=== PATIENT | male | born 1935 | race Caucasian/White ===

== ENCOUNTER 2022-04-03 15:26 | Outpatient (REF) | payer MEDICARE, OTHER, SELFPAY ==
[2022-04-03 18:36] LABS: Appearance Urine CLEAR; Color Urine YELLOW; Glucose Urine UA >=1000 MG/DL (NEG); Leukocyte Esterase Urine NEG (NEG); Nitrite Urine NEG (NEG); PH 6.5 (5.0-8.0); Urine Blood NEG (NEG); Urine Ketones NEG (NEG); Urine Protein NEG (NEG-TRACE)
[2022-04-03 18:41] LABS: RBC Urine 0 /HPF (0); WBC Urine 0 /HPF (0-4)
== END 2022-04-03 15:27 | disposition home or self-care (01) ==
LOC: HO.MANLDS 15:26
PROVIDERS: PCP Internal Medicine; Visit Provider Internal Medicine
DX: R30.9 Painful micturition, unspecified (principal); K92.1 Melena
CPT/HCPCS: 81001

== ENCOUNTER 2022-04-05 11:56 | Outpatient (REF) | payer MEDICARE, OTHER, SELFPAY ==
[2022-04-05 14:32] LABS: FIT1 NEGATIVE (NEGATIVE); FIT2 NEGATIVE (NEGATIVE)
[2022-04-05 14:33] LABS: FIT Int Ctl YES
== END 2022-04-05 11:57 | disposition home or self-care (01) ==
LOC: HO.MANLNP 11:56
PROVIDERS: PCP Internal Medicine; Visit Provider Internal Medicine
DX: K92.1 Melena (principal); R30.9 Painful micturition, unspecified
CPT/HCPCS: 82274

== ENCOUNTER 2022-11-10 10:39 | Outpatient (REF) | payer MEDICARE, OTHER, SELFPAY ==
[2022-11-10 14:08] LABS: MANUAL DIFF FLAG NO
[2022-11-10 14:30] LABS: Basophils Absolute Auto 0.1 X10*3/uL (0.0-0.2); Eosinophils Absolute Auto 0.3 X10*3/uL (0.0-0.4); Eosinophils Percent Auto 3.6 % (0-4); Hematocrit 31.8 % (42.0-52.0); Hemoglobin 10.2 g/dl (14.0-18.0); Imm Gran Abs Auto 0.02 X10*3/uL (0.00-0.03); Imm Gran Pct Auto 0.3 % (0.0-0.4); Lymphocytes Absolute Auto 0.8 X10*3/uL (1.2-4.9); Lymphocytes Percent Auto 10.7 % (20-40); Mean Corpuscular HGB Conc 32.1 g/dl (31.0-36.0); Mean Corpuscular Hemoglobin 28.8 pg (27.0-33.0); Mean Corpuscular Volume 89.8 fL (80.0-98.0); Mean Platelet Volume 9.4 fL (9.4-12.4); Monocytes Absolute Auto 0.7 X10*3/uL (0.1-1.2); Monocytes Percent Auto 10.3 % (2-11); Neutrophils Absolute Auto 5.2 x10*3/uL (2.0-8.3); Neutrophils Percent Auto 74.1 % (45-73); Platelet Count 190 X10*3/uL (160-400); Red Blood Count 3.54 X10*6/uL (4.60-5.80); Red Cell Distribution Width 13.2 % (11.0-16.0)
[2022-11-10 14:48] LABS: Estimated Average Glucose 206 mg/dL; Hemoglobin A1c % 8.8 %
[2022-11-10 14:49] LABS: Alanine Aminotransferase 16 U/L (0-40); Albumin Level 3.9 g/dL (3.5-5.0); Alkaline Phosphatase 117 U/L (39-117); Anion Gap 13 (12-20); Aspartate Amino Transferase 17 U/L (5-37); Bilirubin Total 0.5 mg/dL (0.0-1.0); Blood Urea Nitrogen 42 mg/dL (9-16); Calcium 8.7 mg/dL (8.4-10.2); Carbon Dioxide 25 mmol/L (22-29); Chloride 101 mmol/L (96-108); Estimated Glomerular Filt Rate 32; Glucose Random 309 mg/dL (60-115); Potassium 4.9 mmol/L (3.3-5.1); Sodium 134 mmol/L (135-145); Total Protein 6.4 g/dL (6.5-8.0)
== END 2022-11-10 10:40 | disposition home or self-care (01) ==
LOC: HO.MANLDS 10:39
PROVIDERS: Visit Provider Internal Medicine
DX: E11.22 Type 2 diabetes mellitus with diabetic chronic kidney disease (principal); N18.9 Chronic kidney disease, unspecified
CPT/HCPCS: 36415; 80053; 83036; 85025

== ENCOUNTER 2023-01-02 10:02 | Outpatient (REF) | payer MEDICARE, OTHER, SELFPAY ==
[2023-01-02 20:51] LABS: Cholesterol 134 mg/dL; HDL Cholesterol 43 mg/dL; LDL Cholesterol Calculated 74 mg/dl; Triglycerides 89 mg/dL
[2023-01-03 07:44] LABS: Estimated Average Glucose 232 mg/dL; Hemoglobin A1c % 9.7 %
== END 2023-01-02 10:03 | disposition home or self-care (01) ==
LOC: HO.MANLDS 10:02
PROVIDERS: Visit Provider Internal Medicine
DX: E11.9 Type 2 diabetes mellitus without complications (principal)
CPT/HCPCS: 36415; 80061; 83036

== ENCOUNTER 2023-04-04 09:25 | Outpatient (REF) | payer MEDICARE, OTHER, SELFPAY ==
[2023-04-04 12:01] LABS: Estimated Average Glucose 278 mg/dL; Hemoglobin A1c % 11.3 %
[2023-04-04 12:45] LABS: Creatinine Urine 48.88 mg/dL; Microalbum/Creatinine Ratio Ur 51.1 ug/mg cr
[2023-04-04 12:46] LABS: Alanine Aminotransferase 13 U/L (0-40); Alkaline Phosphatase 118 U/L (39-117); Anion Gap 13 (12-20); Aspartate Amino Transferase 15 U/L (5-37); Bilirubin Total 0.7 mg/dL (0.0-1.0); Blood Urea Nitrogen 40 mg/dL (9-16); Calcium 8.9 mg/dL (8.4-10.2); Carbon Dioxide 25 mmol/L (22-29); Chloride 103 mmol/L (96-108); Cholesterol 123 mg/dL; Estimated Glomerular Filt Rate 29; Glucose Random 273 mg/dL (60-115); HDL Cholesterol 40 mg/dL; LDL Cholesterol Calculated 61 mg/dl; Potassium 5.4 mmol/L (3.3-5.1); Sodium 136 mmol/L (135-145); Total Protein 6.5 g/dL (6.5-8.0); Triglycerides 111 mg/dL
== END 2023-04-04 09:26 | disposition home or self-care (01) ==
LOC: HO.MANLDS 09:25
PROVIDERS: Visit Provider Internal Medicine
DX: E11.22 Type 2 diabetes mellitus with diabetic chronic kidney disease (principal); N18.9 Chronic kidney disease, unspecified
CPT/HCPCS: 36415; 80053; 80061; 82043; 83036

== ENCOUNTER 2023-04-27 07:54 | Outpatient (REF) | payer MEDICARE, OTHER, SELFPAY ==
[2023-04-27 12:21] LABS: Alanine Aminotransferase 12 U/L (0-40); Alkaline Phosphatase 106 U/L (39-117); Anion Gap 17 (12-20); Aspartate Amino Transferase 13 U/L (5-37); Bilirubin Total 0.8 mg/dL (0.0-1.0); Blood Urea Nitrogen 41 mg/dL (9-16); Calcium 9.1 mg/dL (8.4-10.2); Carbon Dioxide 22 mmol/L (22-29); Chloride 103 mmol/L (96-108); Cholesterol 124 mg/dL; Estimated Glomerular Filt Rate 31; Glucose Random 192 mg/dL (60-115); HDL Cholesterol 36 mg/dL; LDL Cholesterol Calculated 61 mg/dl; Potassium 4.8 mmol/L (3.3-5.1); Sodium 137 mmol/L (135-145); Total Protein 6.5 g/dL (6.5-8.0); Triglycerides 136 mg/dL
[2023-04-27 13:26] LABS: Estimated Average Glucose 286 mg/dL; Hemoglobin A1c % 11.6 %
== END 2023-04-27 07:55 | disposition home or self-care (01) ==
LOC: HO.MANLDS 07:54
PROVIDERS: Visit Provider Internal Medicine
DX: E11.22 Type 2 diabetes mellitus with diabetic chronic kidney disease (principal); N18.9 Chronic kidney disease, unspecified
CPT/HCPCS: 36415; 80053; 80061; 83036

== ENCOUNTER 2023-11-02 11:20 | Outpatient (REF) | payer MEDICARE, OTHER, SELFPAY ==
[2023-11-02 13:48] LABS: Estimated Average Glucose 203 mg/dL; Hemoglobin A1c % 8.7 % (<6.0)
[2023-11-02 13:56] LABS: Alanine Aminotransferase 15 U/L (0-40); Albumin Level 3.9 g/dL (3.5-5.0); Alkaline Phosphatase 108 U/L (39-117); Anion Gap 12 (12-20); Aspartate Amino Transferase 17 U/L (5-37); Bilirubin Total 0.3 mg/dL (0.0-1.0); Blood Urea Nitrogen 50 mg/dL (9-16); Calcium 9.1 mg/dL (8.4-10.2); Carbon Dioxide 26 mmol/L (22-29); Chloride 106 mmol/L (96-108); Cholesterol 136 mg/dL (<200); Estimated Glomerular Filt Rate 39; Glucose Random 205 mg/dL (60-115); HDL Cholesterol 48 mg/dL (>40); LDL Cholesterol Calculated 73 mg/dL (<100); Potassium 4.6 mmol/L (3.3-5.1); Sodium 139 mmol/L (135-145); Total Protein 6.7 g/dL (6.5-8.0); Triglycerides 77 mg/dL (<150)
[2023-11-02 13:57] LABS: Creatinine Urine 47.68 mg/dL
== END 2023-11-02 11:21 | disposition home or self-care (01) ==
LOC: HO.MANLDS 11:20
PROVIDERS: Visit Provider Internal Medicine
DX: E11.22 Type 2 diabetes mellitus with diabetic chronic kidney disease (principal); N18.9 Chronic kidney disease, unspecified
CPT/HCPCS: 36415; 80053; 80061; 82043; 82570; 83036

== ENCOUNTER 2024-03-12 10:01 | Outpatient (REF) | payer MEDICARE, OTHER, SELFPAY ==
[2024-03-12 13:41] LABS: Estimated Average Glucose 220 mg/dL; Hemoglobin A1c % 9.3 % (<6.0)
== END 2024-03-12 10:02 | disposition home or self-care (01) ==
LOC: HO.MANLDS 10:01
PROVIDERS: Visit Provider Internal Medicine
DX: E11.22 Type 2 diabetes mellitus with diabetic chronic kidney disease (principal); N18.9 Chronic kidney disease, unspecified
CPT/HCPCS: 36415; 83036

== ENCOUNTER 2024-05-28 11:16 | Outpatient (REF) | payer MEDICARE, OTHER, SELFPAY ==
[2024-05-28 16:38] LABS: Estimated Average Glucose 183 mg/dL
== END 2024-05-28 11:17 | disposition home or self-care (01) ==
LOC: HO.MANLDS 11:16
PROVIDERS: Visit Provider Internal Medicine
DX: E11.22 Type 2 diabetes mellitus with diabetic chronic kidney disease (principal); N18.9 Chronic kidney disease, unspecified
CPT/HCPCS: 36415; 83036

== ENCOUNTER 2024-09-23 15:32 | Outpatient (REF) | payer MEDICARE, OTHER, SELFPAY ==
[2024-09-23 18:08] LABS: Estimated Average Glucose 186 mg/dL; Hemoglobin A1C 227.4794 umol/L; Hemoglobin A1c % 8.1 % (<6.0); Total Hemoglobin (HGBA1C) 3481.6198 umol/L
[2024-09-23 18:12] LABS: Alanine Aminotransferase 21 U/L (0-40); Albumin Level 3.9 g/dL (3.5-5.0); Alkaline Phosphatase 109 U/L (39-117); Anion Gap 13 (12-20); Aspartate Amino Transferase 33 U/L (5-37); Bilirubin Total 0.3 mg/dL (0.0-1.0); Blood Urea Nitrogen 60 mg/dL (9-16); Carbon Dioxide 23 mmol/L (22-29); Chloride 108 mmol/L (96-108); Cholesterol 181 mg/dL (<200); Estimated Glomerular Filt Rate 30; Glucose Random 220 mg/dL (60-115); HDL Cholesterol 45 mg/dL (>40); LDL Cholesterol Calculated 104 mg/dL (<100); Potassium 4.4 mmol/L (3.3-5.1); Sodium 140 mmol/L (135-145); Total Protein 7.3 g/dL (6.5-8.0); Triglycerides 160 mg/dL (<150)
== END 2024-09-23 15:33 | disposition home or self-care (01) ==
LOC: HO.MANLDS 15:32
PROVIDERS: Visit Provider Internal Medicine
DX: E11.22 Type 2 diabetes mellitus with diabetic chronic kidney disease (principal)
CPT/HCPCS: 36415; 80053; 80061; 83036

== ENCOUNTER 2025-01-02 10:27 | Outpatient (REF) | payer MEDICARE, OTHER, SELFPAY ==
--- OUTSIDE RECORDS SUMMARY | 2025-01-02 11:34 | XMS_ITS | Encounter Summary ---
Author Organization [facility], Address [address] [place] [address] Phone Care Team Providers Care Accountant Certified Public Name Role Phone Randal Pinon DO Primary Care Provider [phone] Encounter Details Date Type Department Care Team (Late st Contact Info) Description 02/11/2021 Orders Only [facility] - [facility] [address] [facility] [address] [place] [address] Millie Christiansen MD Chronic kidney disease stage 3; Anemia in chronic kidney disease; Essential hypertension Social History Tobacco Use Types Packs/Day Years Used Date Smoking Tobacco: Former Cigarettes Alcohol Use Standard Drinks/Week Comments No 0 (1 standard drink = 0.6 oz pur e alcohol) Sex and Gender Information Value Date Recorded Sex Assigned at Not on file Legal Sex Male 4:37 PM EST Gender Identity Not on file Sexual Orientation Not on file Occupation Industry Job Start Date Job End Date Retired Not on file Not on file Not on file Retired Not on file Not on file Not on file documented as of this encounter Plan of Treatment Upcoming Encounters Date Type Department Care Team (Late st Contact Info) Description 02/05/2025 10:00 AM EDT Office Visit [facility] - [address] [place] [phone] Kendrick Argueta MD [address] [place] [address] [place] [phone] documented as of this encounter Visit Diagnoses Diagnosis Chronic kidney disease stage 3 (HCC) Anemia in chronic kidney disease Essential hypertension documented in this encounter Care Teams Accountant Certified Public Relationship Specialty Start Date End Date Randal Pinon DO [address] [facility] [place] [address] PCP - General 09/30/19 documented as of this encounter
--- OUTSIDE RECORDS SUMMARY | 2025-01-02 11:34 | XMS_ITS | Encounter Summary ---
Author Organization [facility], Address [address] [place] [address] Phone Care Team Providers Care Butadiene Convertor Operator Name Role Phone Jackieadolfo Randal ANGUIANO Primary Care Provider [phone] Encounter Details Date Type Department Care Team (Late st Contact Info) Description 07/20/2023 Documentation Only [facility] [place] [address] Millie Christiansen MD Social History Tobacco Use Types Packs/Day Years [...] [facility] [place] [address] Kendrick Argueta MD [facility] [address] [place] [phone] documented as of this encounter Visit Diagnoses Not on filedocumented in this encounter Care Teams Butadiene Convertor Operator Relationship Specialty Start Date End Date Kathrin DO Randal [address] [place] [address] PCP - General 09/30/19 documented as of this encounter
--- OUTSIDE RECORDS SUMMARY | 2025-01-02 11:34 | XMS_ITS | Encounter Summary ---
Author Organization [facility], Address [address] [place] [address] Phone Care Team Providers Care Naval Architect Specialist Name Role Phone Randal Pinon DO Primary Care Provider [phone] Encounter Details Date Type Department Care Team (Late Contact Info) Description 08/20/2020 Orders Only [facility] - [facility] [address] [facility] 3 [place] [phone] Millie Christiansen MD Chronic kidney disease stage 3 (HCC) Social History Tobacco Use Types Packs/Day Years [...] Visit [facility], - [address] [place] [address] Kendrick Argueta MD [address] [place] [address] [place] [phone] documented as of this encounter Visit Diagnoses Diagnosis Chronic kidney disease stage 3 (HCC) documented in this encounter Care Teams Naval Architect Specialist Relationship Specialty Start Date End Date Kathrin Randal [address] [facility] [place] [phone] PCP - General 09/30/19 documented as of this encounter
--- OUTSIDE RECORDS SUMMARY | 2025-01-02 11:34 | XMS_ITS | Continuity of Care Document ---
Author Organization [facility] Address [address] [facility] [address] [place] [address] Assessment Encounter Date Assessment Date Assessment LastModified by Organization Details LastModified Time 01/02/2025 01/02/2025 [address] [place] [address] (SUMMER COUNSELOR) : MDM LOW MUST MEET 2 OF 3 ELEMENTS: PROBLEMS, DATA OR RISK ELEMENT 1: PROBLEMS ADDRESSED (LOW): 2 OR MORE SELF-LIMITED OR MINOR PROBLEMS OR 1 STABLE CHRONIC ILLNESS OR 1 ACUTE UNCOMPLICATED ILLNESS OR INJURY ELEMENT 2: DATA TO BE REVISED AND ANALYZED (LOW) MUST MEET 1 OF 2 CATEGORIES: CATEGORY 1. REVIEW OF PRIOR EXTERNAL NOTES/RESULTS, ORDERING OF TEST(S) CATEGORY 2. ASSESSMENT REQUIRING INDEPENDENT HISTORIAN(S) INCLUDE WHO THE HISTORIAN IS AND RELATION TO PT AND WHY PT IS UNABLE TO GIVE COMPLETE HISTORY ELEMENT 3: RISK (LOW) RISK OF COMPLICATIONS AND/OR MORBIDITY OR MORTALITY OF PATIENT MANAGEMENT PROVIDER MUST THOROUGHLY DOCUMENT ALL OF THE ELEMENTS COVERED Not available 01/02/2025 10:32:24 Plan of Treatment Reminders Order Date Submit Date Provider Last Modified By Organization Details Last Modified Time Details Appointments FOLLOW UP 15 2024 09:45A M DR ESTRADA Not available Not available Not available ANNUAL EXAM 2024 11:45A M DR ESTRADA Not available Not available Not available Lab hemoglobi n A1c, QN, blood 2024 025 [facility], [address] [place] [address], [place], [address], 01/02/2025 10:32:55 Referral None recorded. Procedures None recorded. Surgeries None recorded. Imaging None recorded. Medication Orders ketoconaz ole 2 % topical cream 2024 025 [id number], [address], [place], [address], 01/02/2025 10:32:56 Patient TargetsNo targets recorded. Patient InstructionsNo instructions recorded. Reason for Referral None Reported. Problems Name Problem SNOMED Code Status Onset Date Resolution Date Notes Provider Name and Address Organization Details Recorded Time Cira 2137142 Active 2021 Not Available [facility] 3 16:04:36 Dysuria 31892697 Active 2021 Not Available [facility] 3 16:04:36 Type 2 diabetes mellitus without complicat ion 431748367 Active 2022 Not Available [facility] 3 16:04:36 Chronic kidney disease stage 3 385110600 Active 2022 Not Available [facility] 3 16:04:36 Type 2 diabetes mellitus 81421376 Active 2017 Not Available [facility] 3 16:04:36 Neuropath y due to diabetes mellitus 734202475 Active 2017 Not Available [facility] 3 16:04:36 Essential hypertens ion 52688692 Active 2017 Not Available [facility] 3 16:04:36 Hyperchol esterolem ia 30469323 Active 2017 Not Available [facility] 3 16:04:35 Chronic kidney disease 436486083 Active 2017 Stage 3 Not Available [facility] 3 16:04:36 Cholecyst itis 20067771 Active 2023 APRYL SPRAGUE [address] [place] [address], [address], [facility] 4 11:59:49 Gastritis 2269364 Active 2023 APRYL SPRAGUE [address] [place] [address], [address], [facility] 4 12:04:13 Diarrhea 19098556 Active 2023 APRYL SPRAGUE [address] [place] [address], [address], [facility] 4 13:44:52 Depressiv e disorder 64093832 Active 2023 Randal Jose Luis Estrada, DO [address] [place] [address], [address], [facility] 4 10:36:59 Dupuytren 's contractu re of finger 183686365 Active 2023 Randal Estrada, [address], [address], [facility] 4 11:05:22 Dermatoph ytosis 23225727 Active 2023 Randal Estrada [address], [address], [facility] 4 11:02:32 Osteoarth ritis of right knee joint 504709331141 100 Active 2024 Randal Estrada, [address], [address], [facility] 5 10:34:03 Notes:Some problems listed i n Documents: #[id number], #[id number], #[id number], #[id number], #[id number], #[id number], #[id number] could not be added to this patient's chart. Please review these documents and add these problems to the patient's chart manually as needed. Problem Notes None recorded. Medical Equipment None Reported. Allergies Allergen ID Allergen Name Allergen Category Reaction Reaction Severity Criticality Documentation Date Start Date Code Code System Note Provider Name and Address Organization Details Recorded Time 733 lisinopri l medicatio n cough Not available Not available 02/20/2018 80146 [facility] 13:[facility]23 Medications Name Sig Start Date Stop Date Status Note LastModified by Organization Details LastModified Time sildenafil 50 mg tablet TAKE 1 TABLET BY MOUTH NEEDED 03/17 completed Not Available Not Available Not Available sucralfate 1 gram tablet TAKE 1 TABLET (1 GRAM TOTAL) BY MOUTH 4 TIMES A DAY NEEDED 04/28 completed Not Available Not Available Not Available glipizide 10 mg tablet TAKE 1 TABLET TWICE A DAY 03/09 completed Not Available Not Available Not Available lovastatin 40 mg tablet TAKE 1 TABLET BY MOUTH EVERY DAY active Not Available Not Available No t Available lovastatin 10 mg tablet TAKE 1 TABLET ONCE DAILY 12/31 completed Not Available Not Available Not Available tramadol 50 mg tablet TAKE 1 TABLET BY MOUTH EVERY 6 HOURS NEEDED FOR PAIN 02/04 completed Not Available Not Available Not Available triamcinol one acetonide 0.1 % topical cream APPLY TWICE DAILY TO TRUNK FOR UP TO 2 WEEKS NEEDED FOR ITCH, AVOID MACIEL AND GROIN active Not Available Not Available No t Available meclizine 25 mg tablet TAKE 0.5 TABLETS 3 TIMES A DAY BY ORAL ROUTE. 02/04 completed Not Available Not Available Not Available cephalexin 500 mg capsule TAKE 1 CAPSULE BY MOUTH TWICE A DAY FOR 5 DAYS WITH FOOD AND GLASS OF WATER 11/07 completed Not Available Not Available Not Available mirtazapin e 30 mg tablet TAKE 1 TABLET BY MOUTH EVERY DAY AT BEDTIME active Not Available Not Available No t Available clotrimazo le-betamet hasone 1 %-0.05 % topical cream APPLY TO THE AFFECTED AND SURROUND ING AREAS OF SKIN 3 TIMES PER DAY IN THE AM & PM X 2 WEEKS active Not Available Not Available No t Available glimepirid e 4 mg tablet Take 1 tablet every day by oral route for 90 days. 01/29 completed Not Available Not Available Not Available mirtazapin e 15 mg tablet TAKE 1 TABLET BY MOUTH EVERY DAY FOR 30 DAYS 2023 active Not Available Not Available Not Avai lable metoprolol succinate ER 25 mg tablet,ext ended release 24 hr TAKE 1 TABLET ONCE DAILY active Not Available Not Available No t Available ketoconazo le 2 % topical cream APPLY TO THE AFFECTED AREA(S) BY TOPICAL ROUTE AT NIGHT FOR 14 DAYS 2024 active Not Available Not Available Not Avai lable Asprin Ec Low Dose 81 mg tablet,del ayed release Take 1 tablet every day by oral route. 03/17 completed Not Available Not Available Not Available Novolog FlexPen U-100 Insulin aspart 100 unit/mL (3 mL) subcutaneo us TAKE 8 UNITS JUST BEFORE BREAKFAS T AND SUPPER. DO NOT TAKE IF YOU ARE NOT EATING. active Not Available Not Available No t Available FreeStyle Flash System kit active Not Available Not Available N ot Available mirtazapin e 7.5 mg tablet TAKE 1 TABLET BY MOUTH EVERY DAY FOR 30 DAYS 04/28 completed Not Available Not Available Not Available BD Ultra-Fine Mini Pen Needle 31 gauge x 3/16 1 EACH BY PERCUTAN EOUS ROUTE 3 (THREE) TIMES A DAY BEFORE MEALS. active Not Available Not Available No t Available chlorhexid ine gluconate 0.12 % mouthwash SWISH & SPIT 2 TEASPOON SFUL (10 MLS) 3 TIMES A DAY 03/17 completed Not Available Not Available Not Available Vitamin D3 1000 IU daily active OTC Not Available Not Available No t Available Multivitam in 50 Plus 1000 mg once a day 06/20 completed Not Available Not Available Not Available BD Ultra-Fine Short Pen Needle 31 gauge x 5/16 1 EACH BY MISCELLA NEOUS ROUTE NEEDED. active Not Available Not Available No t Available Januvia 100 mg tablet TAKE 1 TABLET ONCE DAILY 11/07 completed Not Available Not Available Not Available Accu-Chek Loretta Plus test strips USE ONE STRIP ONCE DAILY active Not Available Not Available No t Available Jardiance 10 mg tablet TAKE 1 TABLET BY MOUTH EVERY DAY 01/02 completed Not Available Not Available Not Available Jardiance 25 mg tablet TAKE 1 TABLET BY MOUTH EVERY DAY active Not Available Not Available No t Available Trulicity 1.5 mg/0.5 mL subcutaneo us pen injector Inject 0.5 mL every week by subcutan eous route for 90 days. 08/04 completed has lost too much weight Not Available Not Available Not Available Trulicity 0.75 mg/0.5 mL subcutaneo us pen injector INJECT 0.5 ML SUBCUTAN EOUSLY EVERY WEEK DIRECTED FOR 90 DAYS active Not Available Not Available No t Available Vitamin B12 1000mg once a day 06/20 completed Not Available Not Available Not Available Basaglgreta CordovaikPen U-100 Insulin 100 unit/mL (3 mL) subcutaneo us INJECT 8 UNITS UNDER THE SKIN NIGHTLY AT BEDTIME. active Not Available Not Available No t Available BD Princess 2nd Gen Pen Needle 32 gauge x 5/32 USE 2 TIMES A DAY BEFORE MEALS active Not Available Not Available No t Available FreeStyle Gilberto 2 Sensor kit use 1 sensor every 14 days 2021 active Not Available Not Available Not Avai lable FreeStyle Gilberto 2 [place] Use as directed . 2021 active Not Available Not Available Not Avai lable Fluzone High-Dose Quad (PF) 240 mcg/0.7 mL IM syringe PHARMACY ADMINIST ERED 03/09 completed Not Available Not Available Not Available Vitals Date Recorded Body height Body mass index (BMI) Body weight Heart rate Oxygen saturation Oxygen saturation in Arterial blood by Pulse oximetry Systolic blood pressure Diastolic blood pressure Provider Name and Address Organization Details Last Updated DateTime 5 170.18 cm 27.7 kg/m2 77262.8 5 g 78 /min 98 % 98 % 140 mm[Hg] 80 mm[Hg] [facility] 5 09:53:21 Social History Question Answer Notes LastModified by [employer] ion Details LastModified Time Tobacco Smoking Status Former Smoker Not Available [facility] 09/28/2020 03:36:24 What Was The Date Of Your Most Recent Tobacco Screening? 01/02/2025 [email or web address] Information not available 01/02/2025 How Many Years Have You Smoked Tobacco? 50 [id number] Information not available 09/28/2020 Do You Or Have You Ever Used Any Other Forms Of Tobacco Or Nicotine? No [email or web address] Information not available 08/20/2023 Sex: Unknown Functional Status None recorded. Mental Status None recorded. Family History Relationship Description Onset Age of this Age Resolved Age Notes LastModified by Organization Details LastModified Time Sister Family history of malignant neoplasm jvanasse Not available 2021 14:11:32 Brother Family history of diabetes mellitus jvanasse Not available 2021 14:11:32 Brother History of hypertension jvanasse Not available 07/2022 14:11:32 Brother Hypercholest erolemia sbucko Not available 2017 08:30:23 Mother Family history of diabetes mellitus jvanasse Not available 2021 14:11:32 Mother Obesity sbucko Not available 08:30:06 Medical History No medical history recorded. Immunizations Vaccine Type Date Status Note Provider Nam e and Address Organization Details Recorded Time zoster recombinant 5 completed Not Available [facility] 08/06/2023 16:05:00 Influenza, split virus, quadrivalent, preservative 8 completed Not Available [facility] 08/06/2023 16:05:00 COVID-19, mRNA, LNP-S, PF, 30 mcg/0.3 mL dose 1 completed Not Available [facility] 08/06/2023 16:05:00 Influenza, split virus, quadrivalent, preservative 1 completed Not Available [facility] 08/06/2023 16:05:00 COVID-19, mRNA, LNP-S, PF, 30 mcg/0.3 mL dose 2 completed Not Available [facility] 08/06/2023 16:05:00 influenza, unspecified formulation 2 completed Not Available [facility] 08/06/2023 16:05:00 zoster, unspecified formulation 4 completed Randal Estrada DO [address] [place] [address], [address], [facility] 05/11/2024 08:53:32 Influenza, split virus, quadrivalent, preservative 9 completed Not Available [facility] 08/06/2023 16:05:00 Influenza, split virus, quadrivalent, preservative 0 completed Not Available [facility] 08/06/2023 16:05:00 COVID-19, mRNA, LNP-S, PF, 30 mcg/0.3 mL dose 1 completed Not Available [facility] 08/06/2023 16:05:00 COVID-19, mRNA, LNP-S, PF, 30 mcg/0.3 mL dose 1 completed Not Available [facility] 08/06/2023 16:05:00 Past Encounters Encounter ID Performer Location Encounter Start Date Encounter Closed Date Diagnosis/Indication Diagnosis SNOMED-CT Code Diagnosis ICD10 Code Diagnosis Note [id number] Randal Estrada DO [facility] [address] [facility] [address] 01/02/2025 09:48:00 01/02/2025 10:47:55 Essential hypertension 33774269 I10 BP is stable on the metoprolol cont current meds Type 2 damaris betes mellitus without complication 418014071 E11.9 A1C due, lab ordered trying not to eat too much but admits to eating things she shouldnt at times Tinea pedis 1932396 B35. 3 Osteoarthr itis of right knee joint 8069101109 49697 M17.11 sherine is well [facility] Concerns Section Related Observation LastModified by Organization Detai ls LastModified Time None Recorded Concern Status LastModified by Organization Details LastModified Time None Recorded Payers Encounter Date Sequence Insurance Name Policy Number Policy Adams Covered Member ID Adams Member ID Guarantor Name 01/02/2025 1 MEDICARE B-MS: [employer] Max Rodriguez [id number] Max Rodriguez 01/02/2025 2 [employer] - [employer] BENEFIT PLAN (PPO) [id number] Max Rodriguez [id number] Max Rodriguez Notes Date Note Type Note Provider Name and Address Organization Details Recorded Time 5 text/htm l Care Management - DiabetesReported bypatient.Self Care:seeing eye doctor yearly for dilated eye exam; checking feet regularly; normal range of home blood sugars (in the low 100s); no side effects from medications Associated Symptoms:symptoms are usually well controlled; no fatigue; no dizziness; no excessive sweating; no headaches; no confusion; no increased thirst; no increased appetite; no increased urination; no blurred vision; no numbness of feet; no calluses on feetNotes:due for A1C, orderedCare Management - HypertensionReported bypatient.Self Care:not under emotional stress Severity:symptoms are improving; does not interfere with daily activities Associated Symptoms:no dizziness; no lightheadedness; no chest pain; no shortness of breath; no palpitations; no edema; no calf muscle cramps; no blurred vision; no confusion; no headaches; no fatigue Randal Estrada DO [address] [facility], [place], [address], [facility] 01/02/2025 10:34:40
--- OUTSIDE RECORDS SUMMARY | 2025-01-02 11:34 | XMS_ITS | Clinical Summary ---
Author Organization [facility], Address [address] [place] [address] Phone Care Team Providers Care Computer Network Engineer Name Role Phone Randal Pinon DO Primary Care Provider [phone] Allergies Active Allergy Reactions Criticality Noted Date Comments Lisinopril Other (see comments) 02/16/2020 Loratadine Other (see comments) 02/16/2020 Medications cholecalcifero l (VITAMIN D-3) 25 MCG (1000 UT) capsule Take 2 capsules by mouth 1 (one) time each day Active metoprolol succinate XL (TOPROL-XL) 25 MG 24 hr tablet Take 25 mg by mouth 1 (one) time each day 7 Active lovastatin (MEVACOR) 40 MG tablet Take 40 mg by mouth daily Active sildenafil (VIAGRA) 50 MG tablet sildenafil 50 mg tablet TAKE 1 TABLET EVERY DAY BY ORAL ROUTE FOR 30 DAYS. Active triamcinolone (KENALOG) 0.1 % cream triamcinolone acetonide 0.1 % topical cream APPLY TWICE DAILY TO TRUNK FOR UP TO 2 WEEKS NEEDED FOR ITCH, AVOID MACIEL AND GROIN Active ketoconazole (NIZORAL) 2 % cream ketoconazole 2 % topical cream Active Empagliflozin (Jardiance) 10 MG tablet Take 10 mg by mouth 1 (one) time each day Active meclizine (ANTIVERT) 25 MG tablet if needed 3 Active Trulicity 0.75 MG/0.5ML solution pen-injector 3 Active traMADol (ULTRAM) 50 MG tablet Take 50 mg by mouth every 6 (six) hours if needed 3 Active Active Problems Problem Noted Date Diagnosed Date Stage 3b chronic kidney disease 07/25/2021 Hyperkalemia 07/25/2021 Chronic kidney disease due to hypertension 02/15 Anemia in chronic kidney disease 02/16/2020 Renal disorder due to type 2 diabetes mellitus 0 02/16/2020 Essential hypertension 02/20/2018 Neuropathy due to diabetes mellitus 02/20/2018 Type 2 diabetes mellitus without complication Anemia Resolved Problems Problem Noted Date Diagnosed Date Resolved Date Dysuria 04/03/2022 11/13/2023 Hyperlipidemia 02/20/2018 07/24/2023 Immunizations Name Administration Dates Next Due Influenza Split High Dose Preservative Free IM 07/31/2018,09/05/2017 Influenza, Quadrivalent, Wit h Preservative 08/29/2021,10/01/2020,08/25/2019,2018,08/21/2018,08/21/2018 Influenza, Unspecified 09/11/2022 Pfizer SARS-COV-2 09/04/2022, 1,01/31/2021,2020 Shingrix 10/28/2015 Zoster 10/28/2015 Family History Medical History Relation Comments Diabetes Mother Hypertension Mother Throat cancer Sister Relation Status Comments Father Mother Sister Social History Tobacco Use Types Packs/Day Years [...] file Not on file Not on file Last Filed Vital Signs Vital Sign Reading Time Taken Comments Blood Pressure 122/58 11/14/2023 1:54 PM EST Pulse 66 11/14/2023 1:54 PM EST Temperature 36.7 ??C (98 ??F) 09/17/2019 12:00 PM EDT Respiratory Rate 14 11/14/2023 1:54 PM EST Oxygen Saturation - - Inhaled Oxygen Concentration - - Weight 74.4 kg (164 lb) 11/14/2023 1:54 PM EST Height 170.2 cm (5' 7 ) 11/14/2023 1:54 PM EST Body Mass Index 25.69 11/14/2023 1:54 PM EST Plan of Treatment Upcoming Encounters Date Type Department Care Team (Late st Contact Info) Description 02/05/2025 10:00 AM EDT Office Visit [facility] [address] [place] [address] Kendrick Argueta MD [address] [place] [address] Health Maintenance Due Date Last Done Comments Pneumococcal Vaccine: 65+ Years (1 of 2 - PCV) 1941 Diabetes: Ophthalmology Exam 02/16/2020 Diabetes: Pedal Pulse Checked 02/16/2020 Diabetes: Sensory Foot Exam 02/16/2020 Diabetes: Visual Foot Exam 02/16/2020 Diabetes: Hemoglobin A1C 06/03/2024 03/04/2024 Influenza Vaccine (#1) 2024 2, 08/29/2021, 10/01/2020, Additional history exists Hepatitis B Vaccine Aged Out No longe r eligible based on patient's age to complete this topic Insurance MEDICARE AET Care Teams Computer Network Engineer Relationship Specialty Start Date End Date Randal Pinon DO [address] [place] [address] PCP - General 09/30/19
--- OUTSIDE RECORDS SUMMARY | 2025-01-02 11:34 | XMS_ITS | Encounter Summary ---
Author Organization [facility], Address [address] [place] [address] Phone Care Team Providers Care Manager Research And Development Name Role Phone Randal Pinon DO Primary Care Provider [phone] Encounter Details Date Type Department Care Team (Late st Contact Info) Description 02/18/2021 Orders Only [facility] - [facility] [address] [facility] [address] [place] [phone] Millie Christiansen MD Chronic kidney disease stage 3 Social History Tobacco Use Types Packs/Day Years [...] Visit [facility], - [address] [place] [phone] Kendrick Argueta MD [address] [place] [address] [place] [id number] documented as of this encounter Visit Diagnoses Diagnosis Chronic kidney disease stage 3 (HCC) documented in this encounter Care Teams Manager Research And Development Relationship Specialty Start Date End Date Kathrin DO [facility] [address] [facility] [place] [phone] PCP - General 09/30/19 documented as of this encounter
--- OUTSIDE RECORDS SUMMARY | 2025-01-02 11:34 | XMS_ITS | Data Portability ---
Author Organization [facility] Home Service Address [address] [place] [address] Assessment Encounter Date Assessment Date Assessment LastModified by Organization Details LastModified Time 03/17/2024 03/17/2024 [id number] [place] [id number] (COMPUTER ENGINEERING TECHNICIAN) [facility] MODERATE MUST MEET 2 OUT OF 3 ELEMENTS: PROBLEMS, DATA OR RISK ELEMENT 1: PROBLEMS ADDRESSED 1 OR MORE CHRONIC ILLNESS WITH EXACERBATION OR 2 OR MORE STABLE CHRONIC ILLNESSES OR 1 UNDIAGNOSED NEW PROBLEM OR 1 ACUTE ILLNESS W/SYMPTOMS OR 1 ACUTE COMPLICATED INJURY ELEMENT 2: DATA MUST MEET 1 OF 3 CATEGORIES CATEGORY 1: REVIEW OF PRIOR EXTERNAL NOTES, REVIEW OF RESULTS, ORDERING OF EACH TEST, ASSESSMENT REQUIRING INDEPENDENT HISTORIAN OR CATEGORY 2: INDEPENDENT INTERPRETATION OF TESTS BY ANOTHER PHYSICIAN OR SPECIALIST OR CATEGORY 3: DISCUSSION OF MGT OR TEST INTERPRETATION W/EXTERNAL PHYSICIAN OR SPECIALIST ELEMENT 3: RISK RISK OF COMPLICATIONS AND/OR MORBIDITY OR MORTALITY OF PATIENT MANAGEMENT PROVIDER MUST THOROUGHLY DOCUMENT EACH ELEMENT THAT IS COVERED Not available 03/17/2024 10:36:50 04/28/2024 04/28/2024 [id number] or [id number] (COMPUTER ENGINEERING TECHNICIAN) [facility] MODERATE MUST MEET 2 OUT OF 3 ELEMENTS: PROBLEMS, DATA OR RISK ELEMENT 1: PROBLEMS ADDRESSED 1 OR MORE CHRONIC ILLNESS WITH EXACERBATION OR 2 OR MORE STABLE CHRONIC ILLNESSES OR 1 UNDIAGNOSED NEW PROBLEM OR 1 ACUTE ILLNESS W/SYMPTOMS OR 1 ACUTE COMPLICATED INJURY ELEMENT 2: DATA MUST MEET 1 OF 3 CATEGORIES CATEGORY 1: REVIEW OF PRIOR EXTERNAL NOTES, REVIEW OF RESULTS, ORDERING OF EACH TEST, ASSESSMENT REQUIRING INDEPENDENT HISTORIAN OR CATEGORY 2: INDEPENDENT INTERPRETATION OF TESTS BY ANOTHER PHYSICIAN OR SPECIALIST OR CATEGORY 3: DISCUSSION OF MGT OR TEST INTERPRETATION W/EXTERNAL PHYSICIAN OR SPECIALIST ELEMENT 3: RISK RISK OF COMPLICATIONS AND/OR MORBIDITY OR MORTALITY OF PATIENT MANAGEMENT PROVIDER MUST THOROUGHLY DOCUMENT EACH ELEMENT THAT IS COVERED Not available 04/28/2024 16:01:55 05/28/2024 05/28/2024 [id number] [place] [id number] (COMPUTER ENGINEERING TECHNICIAN) MDM HIGH MUST MEET 2 OUT OF 3 ELEMENTS: PROBLEMS, DATA OR RISK ELEMENT 1: PROBLEMS 1 OR MORE CHRONIC ILLNESS W/SEVERE EXACERBATION, PROGRESSION MAY REQUIRE HOSPITAL LEVEL CARE OR 1 ACUTE OR CHRONIC ILLNESS OR INJURY THAT POSES A THREAT TO LIFE OR BODILY FUNCTION ELEMENT 2: DATA: MUST MEET 2 OF 3 CATEGORIES CATEGORY 1 REVIEW OF PRIOR EXTERNAL NOTES REVIEW OF THE RESULTS ORDERING OF EACH TEST ASSESSMENT REQUIRING INDEPENDENT HISTORIAN(S) CATEGORY 2: INDEPENDENT INTERPRETATION OF TESTS BY ANOTHER PROVIDER/SPECIALI ST CATEGORY 3: DISCUSSION OF MGT OR TEST INTERPRETATION W/EXTERNAL PHYSICIAN/SPECIAL IST ELEMENT 3: RISK HIGH RISK OF MORBIDITY FROM ADDITIONAL DIAGNOSTIC TESTING OR TREATMENT PROVIDER MUST THOROUGHLY DOCUMENT EACH ELEMENT THAT IS COVERED Not available 05/28/2024 11:06:39 01/02/2025 01/02/2025 [id number] [place] [id number] (COMPUTER ENGINEERING TECHNICIAN) : MDM LOW MUST MEET 2 OF [...] available Lab hemoglobi n A1c, QN, blood 2023 024 [facility], [address] [place] [address], [place], [address], 05/29/2024 11:08:29 hemoglobi n A1c, QN, blood 2023 024 [facility], [address] [place] [address], [address], 09/24/2024 10:49:32 hemoglobi n A1c, QN, blood 2024 025 [facility], [address] [place] [address], [place], [address], 01/02/2025 10:32:55 Referral general surgeon referral 2023 024 [email or web address] 10 Enedelia Griffith MD, [address] [place], [address], 04/29/2024 08:53:00 hand surgeon referral - call 2023 024 raul Haider MD, [address] [place] [address], [address], 06/25/2024 09:35:57 Procedures None recorded. Surgeries None recorded. Imaging None recorded. Medication Orders Jardiance 25 mg tablet 2023 024 [facility], [facility], [place], [address], 09/24/2024 10:39:46 mirtazapi ne 7.5 mg tablet 2023 024 [id number], [address] [place], [address], 04/28/2024 16:03:33 mirtazapi ne 15 mg tablet [address] [id number], [address] [place], [address], 04/28/2024 16:03:53 mirtazapi ne 30 mg tablet [address] [facility]037[facility], [address] [place], [address], 09/24/2024 11:04:04 clotrimaz ole-betam ethasone 1 %-0.05 % topical cream 2023 024 [facility], [address] [place], [address], 09/24/2024 11:04:03 ketoconaz ole 2 % topical cream 2024 025 [facility], [address] [place], [address], 01/02/2025 10:32:56 Patient TargetsNo targets recorded. Patient Instructions Encounter Date Encounter Id Patient Instructions Last Modified By Organization Details Last Modified Time 03/17/2024 [id number] learning about mood disorders Not available 03/17/2024 10:38:01 04/28/2024 [id number] learning about mood disorders Not available 04/28/2024 16:03:19 05/28/2024 [id number] Dupuytren's Disease: Care Instructions Not available 05/28/2024 11:06:07 learning about type 2 diabetes Not available 05/28/2024 11:04:33 type 2 diabetes: care instructions Not available 05/28/2024 11:04:33 high blood pressure: care instructions Not available 05/28/2024 11:04:33 learning about high blood pressure Not available 05/28/2024 11:04:33 09/24/2024 [id number] learning about type 2 diabetes Not available 09/24/2024 11:04:00 type 2 diabetes: care instructions Not available 09/24/2024 11:03:59 high blood pressure: care instructions Not available 09/24/2024 11:03:59 learning about high blood pressure Not available 09/24/2024 11:04:00 ringworm: care instructions Not available 09/24/2024 11:04:00 Reason for Referral General Surgeon Referral for Cholecystitis Referring Physician: Randal Estrada, Internal Medicine, Encounter Date: 03/17/2024 Hand Surgeon Referral for Du puytren's contracture of finger call [phone] Referring Physician: Randal Estrada, Internal Medicine, Encounter Date: 05/28/2024 Results Created Date Observation Date Name Description Value Unit Range Abnormal Flag Note LastModifiedBy Organization Detail LastModifiedTime 03/04/20 24 03/03/2024 CT, abdom en + pelvi s, w/o contr ast No observ ation record ed. [email or web address] [facility] [address] [place] [address] Dr, MELVI Ruiz, [id number], 03/04/2024 08:53:23 Result Notes None recorded. Problems Name Problem SNOMED Code Status Onset Date Resolution Date Notes Provider Name and Address Organization Details Recorded Time Cira 7212877 Active 2021 Not Available [facility] 3 16:04:36 Dysuria 15735491 Active 2021 Not Available [facility] 3 16:04:36 Type 2 diabetes mellitus without complicat ion 203171536 Active 2022 Not Available [facility] 3 16:04:36 Chronic kidney disease stage 3 433335278 Active 2022 Not Available [facility] 3 16:04:36 Type 2 diabetes mellitus 88577306 Active 2017 Not Available [facility] 3 16:04:36 Neuropath y due to diabetes mellitus 208994436 Active 2017 Not Available [facility] 3 16:04:36 Essential hypertens ion 35586693 Active 2017 Not Available [facility] 3 16:04:36 Hyperchol esterolem ia 09302815 Active 2017 Not Available [facility] 3 16:04:35 Chronic kidney disease 482800272 Active 2017 Stage 3 Not Available [facility] 3 16:04:36 Cholecyst itis 45562988 Active 2023 APRYL SPRAGUE [address] [place] [address], [address], [facility] 4 11:59:49 Gastritis 3776964 Active 2023 APRYL SPRAGUE [address] [place] [address], [address], [facility] 4 12:04:13 Diarrhea 97815831 Active 2023 APRYL SPRAGUE [address] [place] [address], [address], [facility] 4 13:44:52 Depressiv e disorder 69440495 Active 2023 Randal Estrada [address], [address], [facility] 4 10:36:59 Dupuytren 's contractu re of finger 513513341 Active 2023 Randal Estrada DO [address] [place] [address], [address], [facility] 4 11:05:22 Dermatoph ytosis 70668514 Active 2023 Randal Estrada [address], [address], [facility] 4 11:02:32 Osteoarth ritis of right knee joint 468707033662 100 Active 2024 Randal Estrada DO [address] [place] [address], [address], [facility] 5 10:34:03 Notes:Some problems listed i n Documents: #[id number], #[id number], #[id number], #[id number], #[id number], #[id number], #[id number] could not be added to this patient's chart. Please review these documents and add these problems to the patient's chart manually as needed. Problem Notes None recorded. Procedures Surgical History None recorded. Imaging Results Imaging Date Name Status LastModified by [facility] Details LastModified Time 03/03/2024 CT, abdomen + pelvis, w/o contrast completed [email or web address] [facility] [address], MELVI Ruiz, [id number], 03/04/2024 08:53:23 Procedure Notes None recorded. Medical Equipment None Reported. Allergies Allergen ID Allergen Name Allergen Category Reaction Reaction Severity Criticality Documentation Date Start Date Code Code System Note Provider Name and Address Organization Details Recorded Time 733 lisinopri l medicatio n cough Not available Not available 02/20/2018 57326 RxNorm Mayte ag [place] - [facility] 8 13:34:23 Medications Name Sig Start Date [...] TAKE 1 TABLET BY MOUTH EVERY DAY 02/07 /2025 completed Not Available Not Available Not Available [...] completed Not Available Not Available Not Available Basaglar KwikPen U-100 Insulin 100 unit/mL (3 mL) subcutaneo [...] Available Not Avai lable FreeStyle Gilberto 2 Garretson Use as directed . 2021 active Not [...] and Address Organization Details Last Updated DateTime 4 170.18 cm 26.2 kg/m2 41771.0 8 g 67 /min 95 % 95 % 122 mm[Hg] 58 mm[Hg] [facility] 4 10:13:47 Date Recorded Body height Body mass index (BMI) Body weight Heart rate Oxygen saturation Oxygen saturation in Arterial blood by Pulse oximetry Systolic blood pressure Diastolic blood pressure Provider Name and Address Organization Details Last Updated DateTime 4 170.18 cm 26.2 kg/m2 14113.3 6 g 74 /min 96 % 96 % 102 mm[Hg] 62 mm[Hg] Ingrid [facility] 4 15:31:05 Date Recorded Body height Body mass index (BMI) Body weight Heart rate Oxygen saturation Oxygen saturation in Arterial blood by Pulse oximetry Systolic blood pressure Diastolic blood pressure Provider Name and Address Organization Details Last Updated DateTime 4 170.18 cm 26.9 kg/m2 61562.8 9 g 73 /min 97 % 97 % 110 mm[Hg] 60 mm[Hg] Isis Bradley [facility] 4 10:40:03 Date Recorded Body height Body mass index (BMI) Body weight Heart rate Oxygen saturation Oxygen saturation in Arterial blood by Pulse oximetry Systolic blood pressure Diastolic blood pressure Provider Name and Address Organization Details Last Updated DateTime 4 170.18 cm 27.8 kg/m2 06468 g 84 /min 99 % 99 % 134 mm[Hg] 70 mm[Hg] Hay Neville [facility] 4 10:39:01 Date Recorded Body height Body mass index (BMI) Body weight Heart rate Oxygen saturation Oxygen saturation in Arterial blood by Pulse oximetry Systolic blood pressure Diastolic blood pressure Provider Name and Address Organization Details Last Updated DateTime 5 170.18 cm 27.7 kg/m2 72167.8 5 g 78 /min 98 % 98 % 140 mm[Hg] 80 mm[Hg] Isis Bradley [facility] 5 09:53:21 Social History Question Answer Notes LastModified by [employer] ion Details LastModified Time Tobacco Smoking Status Former Smoker Not Available [facility] 09/28/2020 03:36:24 What Was The Date Of Your Most Recent Tobacco Screening? 01/02/2025 [email or web address] Information not available 01/02/2025 How Many Years Have You Smoked Tobacco? 50 [id number] Information not available 09/28/2020 Do You Or Have You Ever Used Any Other Forms Of Tobacco Or Nicotine? No [email or web address] Information not available 08/20/2023 Sex: Unknown Functional [...] Time zoster recombinant 5 completed Not Available [facility] 08/06/2023 16:05:00 Influenza, split virus, quadrivalent, preservative 8 completed Not Available [facility] 08/06/2023 16:05:00 COVID-19, mRNA, LNP-S, PF, 30 mcg/0.3 mL dose 1 completed Not Available [facility] 08/06/2023 16:05:00 Influenza, split virus, quadrivalent, preservative 1 completed Not Available [facility] 08/06/2023 16:05:00 COVID-19, mRNA, LNP-S, PF, 30 mcg/0.3 mL dose 2 completed Not Available [facility] 08/06/2023 16:05:00 influenza, unspecified formulation 2 completed Not Available [facility] 08/06/2023 16:05:00 zoster, unspecified formulation 4 completed Randal Estrada, DO [address] [facility], [place], [address], [facility] 05/11/2024 08:53:32 Influenza, split virus, quadrivalent, preservative 9 completed Not Available [facility] 08/06/2023 16:05:00 Influenza, split virus, quadrivalent, preservative 0 completed Not Available [facility] 08/06/2023 16:05:00 COVID-19, mRNA, LNP-S, PF, 30 mcg/0.3 mL dose 1 completed Not Available [facility] 08/06/2023 16:05:00 COVID-19, mRNA, LNP-S, PF, 30 mcg/0.3 mL dose 1 completed Not Available [facility] 08/06/2023 16:05:00 Past Encounters Encounter ID Performer Location Encounter Start Date Encounter Closed Date Diagnosis/Indication Diagnosis SNOMED-CT Code Diagnosis ICD10 Code Diagnosis Note [id number] February Paz [facility] [address] [facility] [place] [address] 02/25/2018 10:16:02 02/25/2018 11:34:02 Type 2 diabetes mellitus 19179252 E11.40 E11.3293 exercise more- pt plans to walk more- this is encouraged better diet control continue januvia & glipizide consider restarting metformin in future continue daily fbs monitoring continue q9week toenail maintenanc e Benign ess ential hypertension 3685961 I10 stable, continue metoprolol daily, as well as baby asa Hyperlipidemia 01627560 E78.2 overdue for labs- will order for next visit Chronic ki dney disease stage 3 977996047 N18.3 will monitor cmp. continue care with dr. christiansen. reinforced kidney health diet. praised for increase intake of fish over mammalian sources. [id number] February Paz [facility] Internal Medicine [address] [facility],[place] [address] 05/27/2018 08:54:43 05/27/2018 09:41:01 Type 2 diabetes mellitus 47431513 E11.3293 E11.40 pt reluctant to start new medication - he states he would like to do better with diet. he gave a detailed descriptio n of his diet and it is actually quite good from what he's saying. He does report afterward that he does cheat quite a bit. continue januvia & glipizide continue daily fbs monitoring continue q9week toenail maintenanc e GFR of 40 limits use of metformin increase exercise Benign ess ential hypertension 9540207 I10 stable, continue metoprolol daily, as well as baby asa Hyperlipidemia 09805419 E78.2 LDL not quite at goal - diet and exercise recommende d Chronic ki dney disease stage 3 976629937 N18.3 will monitor cmp. continue care with dr. christiansen. reinforced kidney health diet. praised for increase intake of fish over mammalian sources. no improvemen t with d/c of metformin [id number] Alina [facility] Internal Medicine [address] [facility],[place] [address] 10/08/2018 09:31:32 10/08/2018 10:40:01 Type 2 diabetes mellitus 84336250 E11.3293 E11.40 a1c worse at 8.8, up from 7.9 would like to monitor a1c and see if the detox he is doing has any impact. since starting he has noticed an improvemen t in blood sugar continue januvia & glipizide as dosed for now, recheck in 3 months continue daily fbs monitoring continue q9week toenail maintenanc e with podiatry GFR of 40 limits use of metformin increase exercise Benign ess ential hypertension 6296501 I10 stable, continue metoprolol daily, as well as baby asa Hyperlipidemia 68008905 E78.2 LDL worse will increase lovastatin Chronic ki dney disease stage 3 734099821 N18.3 will monitor cmp. continue care with dr. christiansen. reinforced kidney health diet. praised for increase intake of fish over mammalian sources. no improvemen t since d/c of metformin Body mass index 25-29 - overweight 468919580 Z68.29 working on eating a healthier diet now. [id number] Alina [facility] Internal Medicine [address] [facility],[place] [address] 12/31/2018 09:05:34 12/31/2018 10:11:48 Type 2 diabetes mellitus 89410791 E11.3293 E11.40 a1c improved from 8.8 to 7.7, still not quite at goal detox has completed continue januvia & glipizide as dosed for now, recheck in 3 months continue daily fbs monitoring continue q9week toenail maintenanc e with podiatry GFR of 40 limits use of metformin increase exercise will continue to focus on healthy diet to reach goal of <7 Benign ess ential hypertension 1511881 I10 well-contr olled, continue metoprolol daily, as well as baby asa Hyperlipidemia 54126940 E78.2 cholestero l panel improved LDL still not quite at goal with LDL of 101 but down from 140 Chronic ki dney disease stage 3 018321155 N18.3 will monitor cmp. continue care with dr. christiansen. reinforced kidney health diet. praised for increase intake of fish over mammalian sources. no improvemen t since d/c of metformin Body mass index 25-29 - overweight 320610435 Z68.29 working on eating a healthier diet now [id number] Randal Estrada [facility] Internal Medicine [address] [facility], [place] [address] 06/20/2019 10:34:21 06/20/2019 11:57:48 Type 2 diabetes mellitus 50013433 E11.22 actually heading in the right direction and hgb down from 9.5 and down to 8 cont good diet and glipizide and januvia Essential hypertension 06805772 I10 here for chk and is doing ok and is tolerating med without issue Active or passive immunization 652592535 Z23 needs tdap as last vaccine will send to pharm Chronic ki dney disease 811593464 N18.9 seems stable and no change in his meds Neuropathy due to diabetes mellitus 184331024 E11.49 ongoing neuropathy but is self limited [id number] Randal Estrada [facility] Internal Medicine [address] [facility],[place] [employer] [place] [address] 10/31/2019 08:57:37 10/31/2019 09:18:49 Essential hypertension 87792778 I10 here for chk and is doing ok and is tolerating med without issue Type 2 damaris betes mellitus 12389901 E11.22 actually heading in the right direction and hgb down from 9.5 and down to 8 cont good diet and glipizide and januvia Chronic ki dney disease 342317602 N18.9 seems stable and no change in his meds follows with dr christiansen and all has been ok reviewed lab in detail [facility] pt Neuropathy due to diabetes mellitus 154597605 E11.49 ongoing neuropathy but is self limited [id number] Randal Estrada [facility] Internal Medicine [address] [facility] [address],[place] [address] 01/30/2020 09:03:51 01/30/2020 09:52:06 Type 2 diabetes mellitus 33720554 E11.22 A1c is 9.4, was 8 (but that was when he switched from glipizide to glimepirid e) states that his sugar is much better now that he has switched back cont good diet and glipizide and januvia staying active, walks with will have labs redo at the end of this month Essential hypertension 54903784 I10 BP is stable on the metoprolol 130/70 (01/30/20) Chronic ki dney disease 525986377 N18.[address] Christiansen again during the first week of February for f/u appt. will get blood work done at end of January to bring to him [id number] Randal Estrada [facility] Internal Medicine [address] [facility],[place] [employer] [address] 03/12/2020 11:41:20 03/12/2020 12:22:20 Hypercholesterolemia 70040802 E78.00 will be checking in a few months Type 2 damaris betes mellitus 58495618 E11.22 A1c is 9.3 and was 9.4, was 8 (but now he switched back from glipizide to glimepirid e and states that his sugar is much better now that he has switched back cont good diet and glipizide and januvia staying active, walks with will have labs redo at the end of this month Essential hypertension 47867561 I10 BP is stable on the metoprolol 130/70 (01/30/20) [id number] Randal Estrada DO [facility] Internal Medicine [address] [facility],[place] [address] 05/24/2020 10:26:33 05/24/2020 11:10:22 Type 2 diabetes mellitus 97003026 E11.22 A1C was 9.3 is now 8.6 due to poor diet Continue to work on diet and will keep walking daily A1c is 9.3 and was 9.4, was 8 (but now he switched back from glipizide to glimepirid e and states that his sugar is much better now that he has switched back cont good diet and glipizide and januvia staying active, walks with will have labs redo at the end of this month Essential hypertension 77479456 I10 BP is stable on the metoprolol Chronic dney disease 010669955 N18.[address] Christiansen next mo Ganglion c yst of left hand 0991063461 67781 M67.442 L 1st digit palmar Will monitor and refer if locking or painful [id number] Randal Estrada [facility] Internal Medicine [address] [facility],[place] [address] 11/23/2020 08:40:27 11/23/2020 15:44:08 Type 2 diabetes mellitus 01801478 E11.22 A1C was in jul 9.5 due to poor diet waiting for latest test Continue to work on diet and will keep walking daily PRIOR: A1c is 9.3 and was 9.4, was 8 (but now he switched back from glipizide to glimepirid e and states that his sugar is much better now that he has switched back cont good diet and glipizide and januvia staying active, walks with but not as much due to the cold Essential hypertension 18765412 I10 BP is stable on the metoprolol Chronic dney disease 081537264 N18.[address] Christiansen next mo Neuropathy due to diabetes mellitus 989886321 E11.49 ongoing neuropathy but is self limited and has not worsened Hypercholesterolemia 136 13539 E78.00 will be checking in a few months Primary er ectile dysfunction 604502085 N52.9 [id number] [facility] [address] [facility],[place] [address] 03/09/2021 10:46:48 03/09/2021 11:27:21 Essential hypertension 38692165 I10 BP is stable on the metoprolol Type 2 damaris betes mellitus 44146768 E11.22 A1C was in jul 9.5 due to poor diet waiting for latest test Continue to work on diet and will keep walking daily PRIOR: A1c is 9.5 was 9.3 and was 9.4, was 8 (but now he switched back from glipizide to glimepirid e and states that his sugar is much better now that he has switched back cont good diet and glipizide and januvia staying active, walks with but not as much due to the cold Hypercholesterolemia 136 54988 E78.00 will be checking in a few months [id number] Randal Estrada [facility] Internal Medicine [address] [facility] [address],[place] [address] [address] 06/22/2021 10:44:36 06/22/2021 11:33:49 Type 2 diabetes mellitus 29318583 E11.22 A1C was 7.4 today and was in march 04.5 due to poor diet waiting for latest test Continue to work on diet and will keep walking daily PRIOR: A1c was 9.5 was 9.3 and was 9.4, was 8 (but now he switched back from glipizide to glimepirid e and states that his sugar is much better now that he has switched back cont good diet and glipizide and januvia staying active, walks with but not as much due to the cold Essential hypertension 99016236 I10 BP is stable on the metoprolol Chronic ki dney disease stage 3 392089548 N18.30 stable and is followed by renal although his numbers are about the same [id number] Randal Estrada DO [facility] Internal Medicine [address] [facility] [address] [address] [place] [facility] [place] [address] 10/17/2021 11:12:08 10/17/2021 11:41:11 Type 2 diabetes mellitus 20684695 E11.22 A1C was 7.4 today and was in february 9.5 due to poor diet waiting for latest test Continue to work on diet and will keep walking daily PRIOR: A1c was 9.5 was 9.3 and was 9.4, was 8 (but now he switched back from glipizide to glimepirid e and states that his sugar is much better now that he has switched back cont good diet and glipizide and januvia staying active, walks with but not as much due to the cold Hypercholesterolemia 136 47375 E78.00 will be checking in a few months but we feels he is doing good Essential hypertension 37126831 I10 BP is stable on the metoprolol cont current meds Type 2 damaris betes mellitus without complication 012454689 E11.9 a1c is 7.8 and doing oktrying not to eat too much [id number] Randal Estrada [facility] Internal Medicine [address] [facility] [address] [address] 01/30/2022 11:16:50 01/30/2022 15:15:57 Type 2 diabetes mellitus 87755433 E11.22 A1C was8.5 and in september was 7.4 today and was in february 9.5 due to poor diet waiting for latest test Continue to work on diet and will keep walking daily PRIOR: last year A1c was 9.5 was 9.3 and was 9.4, was 8 (but now he switched back from glipizide to glimepirid e and states that his sugar is much better now that he has switched back cont good diet and glipizide and januvia staying active, walks with but not as much due to the cold Essential hypertension 31834354 I10 BP is stable on the metoprolol cont current meds Type 2 damaris betes mellitus without complication 319918967 E11.9 a1c is 7.8 and doing oktrying not to eat too much Chronic ki dney disease stage 3 626971137 N18.30 stable and is followed by renal although his numbers are about the same 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 ongoing neuropathy but is self limited and has not worsened Hypercholesterolemia 136 09854 E78.00 will be checking in a few months but we feels he is doing good Candidiasis of skin 4988 3006 B37.2 [id number] Randal Estrada DO [facility] Internal Medicine [address] [facility],[place] [address] 05/17/2022 10:50:14 05/17/2022 11:48:20 Depression screening 170626406 Z13.31 stable and negative Active or passive immunization 716687771 Z23 needs tdap as last vaccine will send to pharm [facility] th examination 168103087 Z00.01 long detailed discussion with present explaining the need to eat right he is eating all carbs and sweets and is not following a good dieti explained how this is hurting him etche will try to be better and we wilkl hold off on using insulin etc we will have him try to get [place]ber[place] etc [id number] APRYL SPRAGUE [facility] Internal Medicine [address] [facility],[place] [address] 06/23/2022 14:32:22 06/26/2022 08:42:21 Type 2 diabetes mellitus 90661213 E11.22 placed freestyle gilberto, upper left armpatient already has sridhar [place] up [id number] Randal Estrada [facility] Internal Medicine [address] [facility] [address] [facility] [address] 08/04/2022 14:11:26 08/04/2022 14:25:16 Type 2 diabetes mellitus 84895330 E11.22 A1C was 8.5 and in september was 7.4 today and was in february 9.5 due to poor diet waiting for latest test Continue to work on diet and will keep walking daily PRIOR: last year A1c was 9.5 was 9.3 and was 9.4, was 8 (but now he switched back from glipizide to glimepirid e and states that his sugar is much better now that he has switched back cont good diet and glipizide and januvia staying active, walks with but not as much due to the cold Chronic ki dney disease 303323650 N18.[address] Christiansen next mo Essential hypertension 51972434 I10 BP is stable on the metoprolol cont current meds [id number] Randal Estrada [facility] Internal Medicine [address] [facility] [address], [address] [facility] [address] 11/10/2022 09:44:48 11/10/2022 14:41:44 Essential hypertension 11255508 I10 BP is stable on the metoprolol cont current meds Type 2 damaris betes mellitus 77798876 E11.22 A1C is pending Continue to work on diet and will keep walking daily PRIOR: last year cont good diet and trulicity and januvia staying active, walks with but not as much due to the cold Melena 9264488 K92.1 no evidnce of bleeding no evid of melena Chronic ki dney disease 095415323 N18.9 stable has had some lab earlier this [place] [id number] Randal Estrada [facility] Internal Medicine [address] [facility] [address] [address] 01/05/2023 09:18:59 01/05/2023 09:52:37 Type 2 diabetes mellitus 73535786 E11.22 A1C is pending Continue to work on diet and will keep walking daily PRIOR: last year cont good diet and trulicity and januvia staying active, walks with but not as much due to the cold Hypercholesterolemia 136 21350 E78.00 will be checking in a few months but we feels he is doing good Type 2 damaris betes mellitus without complication 742945624 E11.9 a1c is up to 9.7 this with januvia and trulicity we will try to change the januvia to jardiancet rying not to eat too much Chronic ki dney disease stage 3 364026473 N18.30 stable and is followed by renal although his numbers are about the same Chronic ki dney disease 493323948 N18.9 stable has had some lab earlier this year seeing Dr. Christiansen next mo Essential hypertension 76088365 I10 BP is stable on the metoprolol cont current meds [id number] Randal Estrada [facility] Internal Medicine [address] [facility],[place] [address] 08/20/2023 11:35:04 08/20/2023 12:26:56 Chronic kidney disease stage 3 227936717 N18.30 stable and is followed by renal dr christiansen although his numbers are about the same Essential hypertension 29133038 I10 BP is stable on the metoprolol cont current meds Hypercholesterolemia 136 54691 E78.00 will be checking in a few months but we feels he is doing good Type 2 damaris betes mellitus 24876195 E11.22 A1C is pending Continue to work on diet and will keep walking daily through endocrinol ogyno major issues except he is followed by endocrinst aying active, walks with but not as much due to the weather [id number] Randal Estrada [facility] Internal Medicine [address] [facility],[place] [address] 11/07/2023 11:36:08 11/07/2023 12:23:54 Essential hypertension 45351170 I10 BP is stable on the metoprolol cont current meds Hypercholesterolemia 136 80040 E78.00 will be checking in a few months but we feels he is doing good Type 2 damaris betes mellitus 34117149 E11.22 A1C is 8.7 Continue to work on diet and will keep walking daily through endocrinol ogyno major issues except he is followed by endocrinst khanh larios, walks with but not as much due to the weather Chronic ki dney disease 810564138 N18.9 arun has had some lab earlier this year seeing Dr. Christiansen next mo Chronic ki dney disease stage 3 461501196 N18.30 stable and is followed by renal dr christiansen although his numbers are about the same Type 2 damaris betes mellitus without complication 127665861 E11.9 a1c was up to 9.7 now down to 8.7 on jardiance and trulicityt rying not to eat too much but admits to eating things she shouldnt at times [id number] APRYL SPRAGUE [facility] Internal Medicine [address] [facility], [address] [facility] [address] 02/05/2024 11:43:52 02/05/2024 15:49:20 Cholecystitis 97952773 K80.47 currently on prilosec 40 mg for the next 30 dayscurren tly on sucralfate 1 g for the next 30 days Gastritis 2690575 K29.60 will set up [id number] Randal Estrada DO [facility] Internal Medicine [address] [facility], [address] [facility] [place] [address] 03/17/2024 10:04:01 03/17/2024 11:30:46 Chronic kidney disease 867721800 N18.9 arun has had some lab earlier this year seeing Dr. Christiansen next mo Essential hypertension 12011741 I10 BP is stable on the metoprolol cont current meds Type 2 damaris betes mellitus without complication 938514396 E11.9 a1c was up to 9.7 now down to 9.3 was 8.7 on jardiance and trulicityt rying not to eat too much but admits to eating things she shouldnt at times Type 2 damaris betes mellitus 47051643 E11.22 A1C is 8.7 Continue to work on diet and will keep walking daily through endocrinol ogyno major issues except he is followed by endocrinst khanh larios, walks with but not as much due to the weather Hypercholesterolemia 136 60657 E78.00 will be checking in a few months but we feels he is doing good Cholecystitis 61714062 K 80.47 Depressive disorder 3548 8197 F32.A [id number] Randal Estrada [facility] Medicine [address] [facility] [address] [address] 04/28/2024 15:15:27 04/28/2024 16:09:08 Depression screening 420641000 Z13.31 stable Depressive disorder 3545 8577 F32.A will increase the dose [id number] Randal Estrada [facility] Internal Medicine [address] [facility] [address] [address] 05/28/2024 10:36:07 05/28/2024 11:23:55 Essential hypertension 62985357 I10 BP is stable on the metoprolol cont current meds Chronic ki dney disease 954019438 N18.9 stable has had some lab earlier this year seeing Dr. lopes next mo Type 2 damaris betes mellitus 91303997 E11.22 A1C was 8.7 last visit a1c now is pending Continue to work on diet and will keep walking daily through endocrinol ogyno major issues except he is followed by endocrinst khanh larios, walks with but not as much due to the weather Dupuytren' s contracture of finger 117470519 M72.0 Depressive disorder 5178 9227 F32.A will increase the dose [id number] Randal Estrada [facility] Internal Medicine [address] [facility] [address] [address] 09/24/2024 10:31:31 09/24/2024 11:22:37 Chronic kidney disease 768456160 N18.9 stable has had some lab earlier this year seeing Dr. lopes next mo Essential hypertension 50623458 I10 BP is stable on the metoprolol cont current meds Type 2 damaris betes mellitus 07211025 E11.22 A1C was 8.7 last visit a1c now is pending Continue to work on diet and will keep walking daily through endocrinol ogyno major issues except he is followed by endocrinst khanh larios, walks with but not as much due to the weather Dermatophytosis 87160046 B35.9 Depressive disorder 3548 9007 F32.A will increase the dose [id number] Randal Estrada, [facility] Internal Medicine [address] [facility] [address],[place] [address] 01/02/2025 09:48:00 01/02/2025 10:47:55 Essential hypertension 59230033 I10 BP is stable on the metoprolol cont current meds Type 2 damaris betes mellitus without complication 831729537 E11.9 A1C due, lab ordered trying not to eat too much but admits to eating things she shouldnt at times Tinea pedis 7927774 B35. 3 Osteoarthr itis of right knee joint [id number] 57270 M17.11 sherine is well [facility] Concerns Section Related Observation LastModified by Organization Detai ls LastModified Time None Recorded Concern Status LastModified by Organization Details LastModified Time None Recorded Advance Directives Directive None Recorded Payers Encounter Date Sequence Insurance Name Policy Number Policy Adams Covered Member ID Adams Member ID Guarantor Name 03/17/2024 1 [place] [employer] Max H Routhier [id number] Max Routhier 03/17/2024 2 [employer] - MAIL [employer] BENEFIT PLAN (PPO) [id number] Max H Routhier [id number] Max Routhier 04/28/2024 1 [place] [employer] Max H Routhier [id number] Max Routhier 04/28/2024 2 [employer] - MAIL [employer] BENEFIT PLAN (PPO) [id number] Max H Routhier [id number] 1 Max Routhier 05/28/2024 1 [place] [employer] Max H Routhier [id number] 16 Max Routhier 05/28/2024 2 [employer] - MAIL [employer] BENEFIT PLAN (PPO) [id number] Max H Routhier [id number] 1 Max Routhier 09/24/2024 1 [place] [employer] Max H Routhier [id number] 16 Max Routhier 09/24/2024 2 [employer] - MAIL [employer] BENEFIT PLAN (PPO) [id number] Max Rodriguez [id number] Max Rodriguez 01/02/2025 1 MEDICARE B-[place]: [facility] SERVICES Max Rodriguez [id number] Max Rodriguez 01/02/2025 2 [employer] - [employer]IL [employer] BENEFIT PLAN (PPO) [id number] Max Rodriguez [id number] Max Rodriguez Notes Date Note Type Note Provider Name and Address Organization Details Recorded Time 4 text/htm l here for rechkstates that he feels he is going backwardsbut relates that he is concerned by his gall bladderdiscussed case with who feels he is depressedsleep is fair sleeps on a couch Randal Estrada DO [address] [place] [address], [phone], [facility] 03/17/2024 10:38:37 4 text/htm l Care Management - DiabetesReported bypatient.Self [...] no numbness of feet; no calluses on feetCare Management - HypertensionReported bypatient.Self Care:not under emotional stress Severity:symptoms are improving; does not interfere with daily activities Associated Symptoms:no dizziness; no lightheadedness; no chest pain; no shortness of breath; no palpitations; no edema; no calf muscle cramps; no blurred vision; no confusion; no headaches; no fatigue here for rechk and his memory is not good anymore usp memory is good short term not so muchhe is not taking at nightwife relates he has been better as of late Randal Estrada DO [address] [place] [address], [phone], [facility] 04/28/2024 16:04:22 4 text/htm l Care Management - DiabetesReported bypatient.Self [...] no numbness of feet; no calluses on feetCare Management - HypertensionReported bypatient.Self Care:not under emotional stress Severity:symptoms are improving; does not interfere with daily activities Associated Symptoms:no dizziness; no lightheadedness; no chest pain; no shortness of breath; no palpitations; no edema; no calf muscle cramps; no blurred vision; no confusion; no headaches; no fatigue doing ok overallfeels well overallno cp no sobsleeps ok does take naps Randal Estrada DO [address] [place] [address], [phone] Internal Medicine 05/28/2024 11:08:07 4 text/htm l Care Management - DiabetesReported bypatient.Self [...] no numbness of feet; no calluses on feet relates that jerome giles no cp no sobsleeps and eats well denies any major prob except has a spot on tip of penis he wants evalmood is so so at times can be mayer \ has been doing a lot of cheating with hsi diet and eating a lot oc jelly beans and cookies Randal Estrada DO [address] [place] [address], [phone], [facility] 09/24/2024 11:05:06 5 text/htm l Care Management - DiabetesReported [...] no confusion; no headaches; no fatigue Randal Estrada, DO [address] [place] [address], [place], [address], [facility] 01/02/2025 10:34:40
--- OUTSIDE RECORDS SUMMARY | 2025-01-02 11:35 | XMS_ITS | Encounter Summary ---
Author Organization [facility], Address [address] [place] [address] Phone Care Team Providers Care Die Repairer Stamping Name Role Phone Jackieadolfo Randal ANGUIANO Primary Care Provider [phone] Encounter Details Date Type Department Care Team (Late st Contact Info) Description 07/20/2023 Documentation Only [facility] [place] [address] Millie Christiansen MD Social History [...] [facility] [address] [place] [address] Kendrick Argueta MD [facility] [place] [phone] documented as of this encounter Visit Diagnoses Not on filedocumented in this encounter Care Teams Die Repairer Stamping Relationship Specialty Start Date End Date Kathrin DO [address] [place] [address] PCP - General 09/30/19 documented as of this encounter
--- OUTSIDE RECORDS SUMMARY | 2025-01-02 11:35 | XMS_ITS | Encounter Summary ---
Author Organization [facility], Address [address] [place] [address] Phone Care Team Providers Care Ship'S Carpenter Name Role Phone Jackieadolfo Randal ANGUIANO Primary Care Provider [phone] Encounter Details Date Type Department Care Team (Late st Contact Info) Description 07/20/2023 Documentation Only [facility] [address] [place] [address] Millie Christiansen MD Social History [...] [facility] [address] [place] [address] Kendrick Argueta MD [facility] [place] [phone] documented as of this encounter Visit Diagnoses Not on filedocumented in this encounter Care Teams Ship'S Carpenter Relationship Specialty Start Date End Date Kathrin DO [address] [place] [address] PCP - General 09/30/19 documented as of this encounter
--- OUTSIDE RECORDS SUMMARY | 2025-01-02 11:35 | XMS_ITS | Encounter Summary ---
Author Organization [facility], Address [address] [place] [address] Phone Care Team Providers Care Cattle Dealer Name Role Phone Jackieadolfo Randal ANGUIANO Primary Care Provider [phone] Encounter Details Date Type Department Care Team (Late st Contact Info) Description 07/20/2023 Documentation Only [facility] [address] [place] [address] Millie Christiansen MD Social History [...] [facility] [address] [place] [address] Kendrick Argueta MD [facility] [address] [place] [phone] documented as of this encounter Visit Diagnoses Not on filedocumented in this encounter Care Teams Cattle Dealer Relationship Specialty Start Date End Date Kathrin DO [address] [place] [address] PCP - General 09/30/19 documented as of this encounter
[2025-01-02 14:17] LABS: Estimated Average Glucose 171 mg/dL; Hemoglobin A1C 191.6796 umol/L; Hemoglobin A1c % 7.6 % (<6.0); Total Hemoglobin (HGBA1C) 3195.1268 umol/L
== END 2025-01-02 10:28 | disposition home or self-care (01) ==
LOC: HO.MANLDS 10:27
PROVIDERS: Visit Provider Internal Medicine
DX: E11.9 Type 2 diabetes mellitus without complications (principal)
CPT/HCPCS: 36415; 83036

== ENCOUNTER 2025-04-28 13:38 | Outpatient (REF) | payer MEDICARE, OTHER, SELFPAY ==
--- OUTSIDE RECORDS SUMMARY | 2025-04-28 15:18 | XMS_ITS | Data Portability ---
Author Organization [facility] Home Service Address [address] [place] [address] Assessment Encounter Date Assessment Date Assessment LastModified by Organization Details LastModified Time 03/17/2024 03/17/2024 [id number] [place] [id number] (AWS CONSULTANT) [facility] MODERATE MUST MEET 2 OUT OF 3 [...] COVERED Not available 03/17/2024 10:36:50 04/28/2024 04/28/2024 [id number] [place] [id number] (AWS CONSULTANT) [facility] MODERATE MUST MEET 2 OUT OF 3 [...] COVERED Not available 04/28/2024 16:01:55 05/28/2024 05/28/2024 [id number] [place] [id number] (AWS CONSULTANT) MDM HIGH MUST MEET 2 OUT OF [...] COVERED Not available 05/28/2024 11:06:39 01/02/2025 01/02/2025 [id number] [place] [id number] (AWS CONSULTANT) : MDM LOW MUST MEET 2 OF [...] Organization Details Last Modified Time Details Appointments ANNUAL EXAM 2024 11:45A M DR ESTRADA Not available Not available Not available Lab hemoglobi n A1c, QN, blood 2024 025 [facility], [address] [place] [address], [place], [address], 01/05/2025 12:19:44 hemoglobi n A1c, QN, blood 2023 024 [facility], [address] [place] [address], [place], [address], 05/29/2024 11:08:29 hemoglobi n A1c, QN, blood 2023 024 [facility], [address] [place] [address], [place], [address], 09/24/2024 10:49:32 Referral hand surgeon referral - call 2023 024 raul Haider MD, [address] [place], [address], 06/25/2024 09:35:57 general surgeon referral 2023 024 [email or web address] 10 Enedelia Griffith MD, [address] [place], [address], 04/29/2024 08:53:00 Procedures None recorded. Surgeries None recorded. Imaging None recorded. Medication Orders ketoconaz ole 2 % topical cream 2024 025 [facility] #[id number], [address] [place], [address], 01/02/2025 10:32:56 mirtazapi ne 30 mg tablet 2023 024 [facility] #[id number], [address] [place], [address], 09/24/2024 11:04:04 clotrimaz ole-betam ethasone 1 %-0.05 % topical cream 2023 024 [facility] #0373, [address] [place], [address], 09/24/2024 11:04:03 mirtazapi ne 15 mg tablet 2023 024 [facility] #0373, [address] [place], [address], 04/28/2024 16:03:53 Jardiance 25 mg tablet 2023 024 [facility], [facility], APRYL Parra, [address], 09/24/2024 10:39:46 mirtazapi ne 7.5 mg tablet 2023 024 [facility][id number], [address] [facility], [place], [address], 04/28/2024 16:03:33 Patient TargetsNo targets recorded. Patient Instructions Encounter Date Encounter Id Patient Instructions Last Modified By Organization Details Last Modified Time 03/17/2024 [id number] learning about mood disorders Not available 03/17/2024 10:38:01 04/28/2024 [id number] learning about mood disorders Not available 04/28/2024 16:03:19 05/28/2024 [id number] Dupuytren's Disease: Care Instructions Not available 05/28/2024 11:06:07 learning about type 2 diabetes Not available 05/28/2024 11:04:33 type 2 diabetes: care instructions Not available 05/28/2024 11:04:33 high blood pressure: care instructions Not available 05/28/2024 11:04:33 learning about high blood pressure Not available 05/28/2024 11:04:33 09/24/2024 [id number] learning about type 2 diabetes Not available [...] for Du puytren's contracture of finger call [phone] Referring Physician: Randal Estrada, Internal Medicine, Encounter Date: 05/28/2024 Results Created Date Observation Date Name Description Value Unit Range Abnormal Flag Note LastModifiedBy Organization Detail LastModifiedTime 03/04/20 24 03/03/2024 CT, abdom en + pelvi s, w/o contr ast No observ ation record ed. [facility] - Outpatient Radiology [address] [place] [address] , MEL[place] Ruiz, [address], 03/04/2024 08:53:23 Result Notes None recorded. Problems Name Problem SNOMED Code Status Onset Date Resolution Date Notes Provider Name and Address Organization Details Recorded Time Cira 3035993 Active 2021 Not Available [facility] 3 16:04:36 Dysuria 17411825 Active 2021 Not Available [facility] 3 16:04:36 Type 2 diabetes mellitus without complicat ion 732045524 Active 2022 Not Available [facility] 3 16:04:36 Chronic kidney disease stage 3 664646799 Active 2022 Not Available [facility] 3 16:04:36 Type 2 diabetes mellitus 58015366 Active 2017 Not Available [facility] 3 16:04:36 Neuropath y due to diabetes mellitus 795579673 Active 2017 Not Available [facility] 3 16:04:36 Essential hypertens ion 55570410 Active 2017 Not Available [facility] 3 16:04:36 Hyperchol esterolem ia 96103370 Active 2017 Not Available [facility] 3 16:04:35 Chronic kidney disease 973045714 Active 2017 Stage 3 Not Available [facility] 3 16:04:36 Cholecyst itis 66198165 Active 2023 APRYL SPRAGUE [address] [place], [address], [facility] 4 11:59:49 Gastritis 9309579 Active 2023 APRYL SPRAGUE [address] [place] [address], [address], [facility] 4 12:04:13 Diarrhea 90169679 Active 2023 APRYL SPRAGUE [address] [place] [address], [address], [facility] 4 13:44:52 Depressiv e disorder 80346045 Active 2023 Randal Estrada DO [address] [place] [address], [address], [facility] 4 10:36:59 Dupuytren 's contractu re of finger 477213833 Active 2023 Randal Estrada DO [address] [place] [address], [address], [facility] 4 11:05:22 Dermatoph ytosis 58843318 Active 2023 Randal Estrada DO [address] [place] [address], [address], [facility] 4 11:02:32 Osteoarth ritis of right knee joint 535435093473 100 Active 2024 Randal Estrada DO [address] [place] [address], [address], [facility] 5 10:34:03 Notes:Some problems listed i n Documents: #[id number], #[id number], #[id number], #[id number], #[id number], #[id number], #[id number], #[id number] could not be added to this patient's [...] n cough Not available Not available 02/20/2018 [id number] [facility] 8 13:34:23 Medications Name [...] 24 hr TAKE 1 TABLET ONCE DAILY 2024 active Not Available Not Available Not Avai lable ketoconazo le 2 % topical cream APPLY TO THE AFFECTED AREA(S) TOPICALL Y AT NIGHT FOR 14 DAYS active Not Available Not Available No t Available Asprin Ec Low Dose 81 mg tablet,del [...] completed Not Available Not Available Not Available Clare Chen U-100 Insulin 100 unit/mL (3 mL) subcutaneo [...] Available Not Avai lable FreeStyle Gilberto 2 Tracy Use as directed . 2021 active Not Available Not Available Not Avai lable Fluzone High-Dose Quad 2020 (PF) 240 mcg/0.7 mL IM syringe PHARMACY ADMINIST ERED 03/09 completed Not Available Not Available Not Available Vitals Date Recorded Body height Body mass index (BMI) Body weight Heart rate Oxygen saturation Oxygen saturation in Arterial blood by Pulse oximetry Systolic blood pressure Diastolic blood pressure Provider Name and Address Organization Details Last Updated DateTime 5 170.18 cm 27.7 kg/m2 70310.8 5 g 78 /min 98 % 98 % 140 mm[Hg] 80 mm[Hg] Isis Bradley [facility] 5 09:53:21 Date Recorded Body height Body mass index (BMI) Body weight Heart rate Oxygen saturation Oxygen saturation in Arterial blood by Pulse oximetry Systolic blood pressure Diastolic blood pressure Provider Name and Address Organization Details Last Updated DateTime 4 170.18 cm 26.2 kg/m2 07070.0 8 g 67 /min 95 % 95 % 122 mm[Hg] 58 mm[Hg] Ingrid Holden [facility] 4 10:13:47 Date Recorded Body height Body mass index (BMI) Body weight Heart rate Oxygen saturation Oxygen saturation in Arterial blood by Pulse oximetry Systolic blood pressure Diastolic blood pressure Provider Name and Address Organization Details Last Updated DateTime 4 170.18 cm 26.2 kg/m2 99038.3 6 g 74 /min 96 % 96 % 102 mm[Hg] 62 mm[Hg] Ingrid Holden [facility] 4 15:31:05 Date Recorded Body height Body mass index (BMI) Body weight Heart rate Oxygen saturation Oxygen saturation in Arterial blood by Pulse oximetry Systolic blood pressure Diastolic blood pressure Provider Name and Address Organization Details Last Updated DateTime 4 170.18 cm 26.9 kg/m2 68612.8 9 g 73 /min 97 % 97 % 110 mm[Hg] 60 mm[Hg] Isis Bradley [facility] 4 10:40:03 Date Recorded Body height Body mass index (BMI) Body weight Heart rate Oxygen saturation Oxygen saturation in Arterial blood by Pulse oximetry Systolic blood pressure Diastolic blood pressure Provider Name and Address Organization Details Last Updated DateTime 4 170.18 cm 27.8 kg/m2 66362 g 84 /min 99 % 99 % 134 mm[Hg] 70 mm[Hg] Hay Neville [facility] 4 10:39:01 Social History Question Answer Notes LastModified by OrganSkai ion Details LastModified Time Tobacco Smoking Status Former Smoker Not Available [facility] 09/28/2020 03:36:24 What Was The Date Of Your Most Recent Tobacco Screening? 01/02/2025 [email or web address] Information not available 01/02/2025 How Many Years Have You Smoked Tobacco? 50 [id number] Information not available 09/28/2020 Sex: Unknown Functional Status Question Answer Note LastModified by Organization D etails LastModified Time Do you or have you ever used any other forms of tobacco or nicotine? No [email or web address] Information not available 08/20/2023 Mental Status None recorded. Family History Relationship [...] Time zoster recombinant 5 completed Not Available [facility] 08/06/2023 16:05:00 Influenza, split virus, quadrivalent, preservative 8 completed Not Available [facility] 08/06/2023 16:05:00 COVID-19, mRNA, LNP-S, PF, 30 mcg/0.3 mL dose 1 completed Not Available [facility] 08/06/2023 16:05:00 Influenza, split virus, quadrivalent, preservative 1 completed Not Available [facility] 08/06/2023 16:05:00 COVID-19, mRNA, LNP-S, PF, 30 mcg/0.3 mL dose 2 completed Not Available [facility] 08/06/2023 16:05:00 influenza, unspecified formulation 2 completed Not Available [facility] 08/06/2023 16:05:00 zoster, unspecified formulation 4 completed Randal Estrada DO [address] [place], [address], [facility] 05/11/2024 08:53:32 Influenza, split virus, quadrivalent, preservative 9 completed Not Available [facility] 08/06/2023 16:05:00 Influenza, split virus, quadrivalent, preservative 0 completed Not Available [facility] 08/06/2023 16:05:00 COVID-19, mRNA, LNP-S, PF, 30 mcg/0.3 mL dose 1 completed Not Available [facility] 08/06/2023 16:05:00 COVID-19, mRNA, LNP-S, PF, 30 mcg/0.3 mL dose 1 completed Not Available [facility] 08/06/2023 16:05:00 Past Encounters Encounter ID Performer Location Encounter Start Date Encounter Closed Date Diagnosis/Indication Diagnosis SNOMED-CT Code Diagnosis ICD10 Code Diagnosis Note February JB Mullen [facility] [address] [facility] [address] 02/25/2018 10:16:02 02/25/2018 11:34:02 Type 2 diabetes mellitus 89738364 E11.40 E11.3293 exercise more- pt plans to walk more- this is encouraged better diet control continue januvia & glipizide consider restarting metformin in future continue daily fbs monitoring continue q9week toenail maintenanc e Benign ess ential hypertension 1950100 I10 stable, continue metoprolol daily, as well as baby asa Hyperlipidemia 83704400 E78.2 overdue for labs- will order for next visit Chronic ki dney disease stage 3 621180064 N18.3 will monitor cmp. continue care with dr. christiansen. reinforced kidney health diet. praised for increase intake of fish over mammalian sources. [id number] Randal Estrada DO [facility] [address] [facility], [address] [facility] [address] 05/27/2018 08:54:43 05/27/2018 09:41:01 Type 2 diabetes mellitus 24597807 E11.3293 E11.40 pt reluctant to start new [...] metformin increase exercise Benign ess ential hypertension 6643720 I10 stable, continue metoprolol daily, as well as baby asa Hyperlipidemia 58106064 E78.2 LDL not quite at goal - diet and exercise recommende d Chronic ki dney disease stage 3 525555754 N18.3 will monitor cmp. continue care with dr. christiansen. reinforced kidney health diet. praised for increase intake of fish over mammalian sources. no improvemen t with d/c of metformin [id number] Randal Estrada DO [facility] [address] [facility],[place] [address] 10/08/2018 09:31:32 10/08/2018 10:40:01 Type 2 diabetes mellitus 33016849 E11.3293 E11.40 a1c worse at 8.8, up [...] metformin increase exercise Benign ess ential hypertension 1933502 I10 stable, continue metoprolol daily, as well as baby asa Hyperlipidemia 91814321 E78.2 LDL worse will increase lovastatin Chronic ki dney disease stage 3 904319362 N18.3 will monitor cmp. continue care with dr. christiansen. reinforced kidney health diet. praised for increase intake of fish over mammalian sources. no improvemen t since d/c of metformin Body mass index 25-29 - overweight 807943318 Z68.29 working on eating a healthier diet now. [id number] DO [facility] [address] [facility],[place] [address] 12/31/2018 09:05:34 12/31/2018 10:11:48 Type 2 diabetes mellitus 10835310 E11.3293 E11.40 a1c improved from 8.8 to [...] goal of <7 Benign ess ential hypertension 7715823 I10 well-contr olled, continue metoprolol daily, as well as baby asa Hyperlipidemia 64885517 E78.2 cholestero l panel improved LDL still not quite at goal with LDL of 101 but down from 140 Chronic ki dney disease stage 3 916595217 N18.3 will monitor cmp. continue care with dr. christiansen. reinforced kidney health diet. praised for increase intake of fish over mammalian sources. no improvemen t since d/c of metformin Body mass index 25-29 - overweight 408355882 Z68.29 working on eating a healthier diet now [id number] DO [facility] [address] [facility],[place] [address] 06/20/2019 10:34:21 06/20/2019 11:57:48 Type 2 diabetes mellitus 39027302 E11.22 actually heading in the right direction and hgb down from 9.5 and down to 8 cont good diet and glipizide and januvia Essential hypertension 45624171 I10 here for chk and is doing ok and is tolerating med without issue Active or passive immunization 846304209 Z23 needs tdap as last vaccine will send to pharm Chronic ki dney disease 190981656 N18.9 seems stable and no change in his meds Neuropathy due to diabetes mellitus 686675068 E11.49 ongoing neuropathy but is self limited [id number] Randal Estrada [facility] [address] [facility],[place] [address] 10/31/2019 08:57:37 10/31/2019 09:18:49 Essential hypertension 55932022 I10 here for chk and is doing ok and is tolerating med without issue Type 2 damaris betes mellitus 38589132 E11.22 actually heading in the right direction and hgb down from 9.5 and down to 8 cont good diet and glipizide and januvia Chronic ki dney disease 927842249 N18.9 seems stable and no change in his meds follows with dr hcristiansen and all has been ok reviewed lab in detail [facility] pt Neuropathy due to diabetes mellitus 157366935 E11.49 ongoing neuropathy but is self limited [id number] Randal Estrada [facility] [address] [facility] [address],[place] [address] 01/30/2020 09:03:51 01/30/2020 09:52:06 Type 2 diabetes mellitus 36321263 E11.22 A1c is 9.4, was 8 (but that was when he switched from glipizide to glimepirid e) states that his sugar is much better now that he has switched back cont good diet and glipizide and januvia staying active, walks with will have labs redo at the end of this month Essential hypertension 84970008 I10 BP is stable on the metoprolol 130/70 (01/30/20) Chronic ki dney disease 330496861 N18.[address] Christiansen again during the first week of February for f/u appt. will get blood work done at end of January to bring to him [id number] Randal Estrada [facility] [address] [facility] [address],[place] [address] 03/12/2020 11:41:20 03/12/2020 12:22:20 Hypercholesterolemia 06520668 E78.00 will be checking in a few months Type 2 damaris betes mellitus 47216784 E11.22 A1c is 9.3 and was 9.4, was 8 (but now he switched back from glipizide to glimepirid e and states that his sugar is much better now that he has switched back cont good diet and glipizide and januvia staying active, walks with will have labs redo at the end of this month Essential hypertension 46624903 I10 BP is stable on the metoprolol 130/70 (01/30/20) [id number] Randal Estrada [facility] [address] [facility],[place] [address] 05/24/2020 10:26:33 05/24/2020 11:10:22 Type 2 diabetes mellitus 04123803 E11.22 A1C was 9.3 is now 8.6 [...] the end of this month Essential hypertension 40626377 I10 BP is stable on the metoprolol Chronic ki dney disease 299520957 N18.[address] Christiansen next mo Ganglion c yst of left hand 4694243132 92676 M67.442 L 1st digit palmar Will monitor and refer if locking or painful [id number] Ranadl Estrada [facility] [address] [facility] [address],[place] [address] 11/23/2020 08:40:27 11/23/2020 15:44:08 Type 2 diabetes mellitus 99446756 E11.22 A1C was in jul 9.5 due [...] much due to the cold Essential hypertension 37519449 I10 BP is stable on the metoprolol Chronic ki dney disease 166951967 N18.[address] Christiansen next mo Neuropathy due to diabetes mellitus 323184373 E11.49 ongoing neuropathy but is self limited and has not worsened Hypercholesterolemia 136 41670 E78.00 will be checking in a few months Primary er ectile dysfunction 129360333 N52.9 [id number] Randal Estrada [facility] [address] [facility],[place] [address] 03/09/2021 10:46:48 03/09/2021 11:27:21 Essential hypertension 04396483 I10 BP is stable on the metoprolol Type 2 damaris betes mellitus 74186572 E11.22 A1C was in jul 9.5 due [...] much due to the cold Hypercholesterolemia 136 33779 E78.00 will be checking in a few months [id number] Randal Estrada DO [facility] [address] [facility],[place] [address] 06/22/2021 10:44:36 06/22/2021 11:33:49 Type 2 diabetes mellitus 62987479 E11.22 A1C was 7.4 today and was in fantasma 9.5 due to poor diet waiting for [...] much due to the cold Essential hypertension 94452975 I10 BP is stable on the metoprolol Chronic ki dney disease stage 3 644136825 N18.30 stable and is followed by renal although his numbers are about the same [id number] Randal Estrada DO [facility] [address] [facility] [address],Shellie [place] [address] 10/17/2021 11:12:08 10/17/2021 11:41:11 Type 2 diabetes mellitus 59649032 E11.22 A1C was 7.4 today and was [...] much due to the cold Hypercholesterolemia 136 34780 E78.00 will be checking in a few months but we feels he is doing good Essential hypertension 15308372 I10 BP is stable on the metoprolol cont current meds Type 2 damaris betes mellitus without complication 255151582 E11.9 a1c is 7.8 and doing oktrying not to eat too much [id number] Randal Estrada DO [facility] [address] [facility] [address],[place] [address] 01/30/2022 11:16:50 01/30/2022 15:15:57 Type 2 diabetes mellitus 55010910 E11.22 A1C was8.5 and in september was [...] much due to the cold Essential hypertension 80636421 I10 BP is stable on the metoprolol cont current meds Type 2 damaris betes mellitus without complication 097926187 E11.9 a1c is 7.8 and doing oktrying not to eat too much Chronic ki dney disease stage 3 808092530 N18.30 stable and is followed by renal although his numbers are about the same Neuropathy due to diabetes mellitus 701885172 E11.49 ongoing neuropathy but is self limited and has not worsened Hypercholesterolemia 136 82460 E78.00 will be checking in a few months but we feels he is doing good Candidiasis of skin 4988 3006 B37.2 [id number] Randal Estrada [facility] [address] [facility],[place] [address] 05/17/2022 10:50:14 05/17/2022 11:48:20 Depression screening 026375639 Z13.31 stable and negative Active or passive immunization 805591162 Z23 needs tdap as last vaccine will send to pharm Adult [facility] examination 013230620 Z00.01 long detailed discussion with present explaining the need to eat right he is eating all carbs and sweets and is not following a good dieti explained how this is hurting him etche will try to be better and we wilkl hold off on using insulin etc we will have him try to get a fre[place] gilberto etc [id number] Randal Estrada DO [facility] [address] [facility] [address],[place] [address] 06/23/2022 14:32:22 06/26/2022 08:42:21 Type 2 diabetes mellitus 10858490 E11.22 placed freestyle gilberto, upper left armpatient already has sridhar set up [id number] Randal Estrada DO [facility] [address] [facility],[place] [address] 08/04/2022 14:11:26 08/04/2022 14:25:16 Type 2 diabetes mellitus 57420799 E11.22 A1C was 8.5 and in september [...] to the cold Chronic ki dney disease 478311273 N18.[address] Christiansen next mo Essential hypertension 64775112 I10 BP is stable on the metoprolol cont current meds [id number] Randal Estrada [facility] [address] [facility],[place] [address] 11/10/2022 09:44:48 11/10/2022 14:41:44 Essential hypertension 42834371 I10 BP is stable on the metoprolol cont current meds Type 2 damaris betes mellitus 11860470 E11.22 A1C is pending Continue to work on diet and will keep walking daily PRIOR: last year cont good diet and trulicity and januvia staying active, walks with but not as much due to the cold Melena 6026748 K92.1 no evidnce of bleeding no evid of melena Chronic ki dney disease 568931043 N18.9 stable has had some lab earlier this year [place] [id number] Randal Estrada [facility] [address] [facility],[place] [address] 01/05/2023 09:18:59 01/05/2023 09:52:37 Type 2 diabetes mellitus 77649538 E11.22 A1C is pending Continue to work on diet and will keep walking daily PRIOR: last year cont good diet and trulicity and januvia staying active, walks with but not as much due to the cold Hypercholesterolemia 136 98175 E78.00 will be checking in a few months but we feels he is doing good Type 2 damaris betes mellitus without complication 222981387 E11.9 a1c is up to 9.7 this with januvia and trulicity we will try to change the januvia to jardiancet rying not to eat too much Chronic ki dney disease stage 3 488434108 N18.30 stable and is followed by renal although his numbers are about the same Chronic ki dney disease 583730602 N18.9 stable has had some lab earlier this year seeing Dr. Christiansen next mo Essential hypertension 61912911 I10 BP is stable on the metoprolol cont current meds [id number] Randal Estrada [facility] [address] [facility],[place] [address] 08/20/2023 11:35:04 08/20/2023 12:26:56 Chronic kidney disease stage 3 747257778 N18.30 stable and is followed by renal dr christiansen although his numbers are about the same Essential hypertension [id number] I10 BP is stable on the metoprolol cont current meds Hypercholesterolemia 136 88894 E78.00 will be checking in a few months but we feels he is doing good Type 2 damaris betes mellitus 67669057 E11.22 A1C is pending Continue to work on diet and will keep walking daily through endocrinol ogyno major issues except he is followed by endocrinst khanh active, walks with but not as much due to the weather [id number] Randal Estrada [facility] [address] [facility] [address] [address] 11/07/2023 11:36:08 11/07/2023 12:23:54 Essential hypertension 95369280 I10 BP is stable on the metoprolol cont current meds Hypercholesterolemia 136 18605 E78.00 will be checking in a few months but we feels he is doing good Type 2 damaris betes mellitus 28355157 E11.22 A1C is 8.7 Continue to work on diet and will keep walking daily through endocrinol ogyno major issues except he is followed by endocrinst khanh larios, walks with but not as much due to the weather Chronic ki dney disease 177136750 N18.9 stable has had some lab earlier this year seeing Dr. Christiansen next mo Chronic ki dney disease stage 3 [id number] N18.30 stable and is followed by renal dr christiansen although his numbers are about the same Type 2 damaris betes mellitus without complication 397063938 E11.9 a1c was up to 9.7 now down to 8.7 on jardiance and trulicityt rying not to eat too much but admits to eating things she shouldnt at times [id number] Randal Estrada [facility] [address] [facility] [address],[place] [address] 02/05/2024 11:43:52 02/05/2024 15:49:20 Cholecystitis 76589896 K80.47 currently on prilosec 40 mg for the next 30 dayscurren tly on sucralfate 1 g for the next 30 days Gastritis 3287398 K29.60 will set up [id number] Randal Estrada [facility] [address] [facility] [address] [address] 03/17/2024 10:04:01 03/17/2024 11:30:46 Chronic kidney disease 191893516 N18.9 stable has had some lab earlier this year seeing Dr. Christiansen next mo Essential hypertension 26177503 I10 BP is stable on the metoprolol cont current meds Type 2 damaris betes mellitus without complication 308648101 E11.9 a1c was up to 9.7 now down to 9.3 was 8.7 on jardiance and trulicityt rying not to eat too much but admits to eating things she shouldnt at times Type 2 damaris betes mellitus 04649832 E11.22 A1C is 8.7 Continue to work on diet and will keep walking daily through endocrinol ogyno major issues except he is followed by endocrinst khanh larios, walks with but not as much due to the weather Hypercholesterolemia 136 94484 E78.00 will be checking in a few months but we feels he is doing good Cholecystitis 74153941 K 80.47 Depressive disorder 1766 5155 F32.A [id number] Randal Estrada [facility] [address] [facility] [address] [address] 04/28/2024 15:15:27 04/28/2024 16:09:08 Depression screening 638926914 Z13.31 stable Depressive disorder 3548 9007 F32.A will increase the dose [id number] Randal Estrada [facility] [address] [facility] [address],[place] [address] 05/28/2024 10:36:07 05/28/2024 11:23:55 Essential hypertension 17109986 I10 BP is stable on the metoprolol cont current meds Chronic ki dney disease 483299295 N18.9 stable has had some lab earlier this year seeing Dr. 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 lopes next mo Essential hypertension 74917180 I10 BP is stable on the metoprolol cont current meds Type 2 damaris betes mellitus 06699190 E11.22 A1C was 8.7 last visit a1c now is pending Continue to work on diet and will keep walking daily through endocrinol ogyno major issues except he is followed by endocrinst khanh active, walks with but not as much due to the weather Dermatophytosis 75686293 B35.9 Depressive disorder 8 7897 F32.A will increase the dose [id number] Randal Estrada [facility] [address] [facility] [address],[place] [address] 01/02/2025 09:48:00 01/02/2025 10:47:55 Essential hypertension 13617163 I10 BP is stable on the metoprolol cont current meds Type 2 damaris betes mellitus without complication 435835631 E11.9 A1C due, lab ordered trying not to eat too much but admits to eating things she shouldnt at times Tinea pedis 5932125 B35. 3 Osteoarthr itis of right knee joint 5075286174 37090 M17.11 sherine is well [facility] Concerns Section Related Observation LastModified by Organization Detai ls LastModified Time None Recorded Concern Status LastModified by Organization Details LastModified Time None Recorded Advance Directives Directive None Recorded Payers Encounter Date Sequence Insurance Name Policy Number Policy Adams Covered Member ID Adams Member ID Guarantor Name 03/17/2024 1 [place] [employer] Max H Routhier [id number] Max Routhier 03/17/2024 2 [employer] - MAIL HANDLERS BENEFIT PLAN (PPO) [id number] Max H Routhier [id number] 1 Max Routhier 04/28/2024 1 [place] [employer] Max H Routhier [id number] Max Routhier 04/28/2024 2 [employer] - MAIL HANDLERS BENEFIT PLAN (PPO) [id number] Max H Routhier [id number] 1 Max Routhier 05/28/2024 1 [place] [employer] Max H Routhier [id number] 16 [id number] Max Routhier 05/28/2024 2 [employer] - MAIL HANDLERS BENEFIT PLAN (PPO) [id number] Max H Routhier [id number] 1 Max Routhier 09/24/2024 1 [place] [employer] Max H Routhier [id number] 16 [id number] Max Routhier 09/24/2024 2 [employer] - MAIL HANDLERS BENEFIT PLAN (PPO) [id number] Max H Routhier [id number] 1 Max Routhier 01/02/2025 1 [place] [employer] Max H Routhier [id number] 16 [id number] Max Routhier 01/02/2025 2 [employer] - [employer]IL [employer] BENEFIT PLAN (PPO) [id number] Max Rodriguez [id number] 1 Max Jennifer Notes Date Note Type Note Provider Name and Address Organization Details Recorded Time 4 text/htm l here for rechkstates that he feels he is going backwardsbut relates that he is concerned by his gall bladderdiscussed case with who feels he is depressedsleep is fair sleeps on a couch Randal Estrada DO [address] [place], [address], [facility] 03/17/2024 10:38:37 4 text/htm l [...] and his memory is not good anymore correction memory is good short term not so muchhe is not taking at nightwife relates he has been better as of late Randal Estrada DO [address] [place], [address], [facility] 04/28/2024 16:04:22 4 text/htm l [...] ok does take naps Randal Estrada DO [address] [place] [address], [phone], [facility] 05/28/2024 11:08:07 4 text/htm l [...] feet; no calluses on feet relates that heis kiersten giles no cp no sobsleeps and eats well denies any major prob except has a spot on tip of penis he wants evalmood is so so at times can be mayer \ has been doing a lot of cheating with hsi diet and eating a lot oc jelly beans and cookies Randal Estrada DO [address] [place] [address], [address], [facility] 09/24/2024 11:05:06 5 text/htm l [...] no headaches; no fatigue Randal Estrada, DO [address] [place] [address], [address], [facility] 01/02/2025 10:34:40
[2025-04-29 05:50] LABS: Estimated Average Glucose 169 mg/dL; Hemoglobin A1c % 7.5 % (<6.0)
== END 2025-04-28 13:39 | disposition home or self-care (01) ==
LOC: HO.MANLDS 13:38
PROVIDERS: Visit Provider Internal Medicine
DX: E11.22 Type 2 diabetes mellitus with diabetic chronic kidney disease (principal); N18.9 Chronic kidney disease, unspecified
CPT/HCPCS: 36415; 83036

== ENCOUNTER 2025-10-14 11:51 | Outpatient (REF) | payer MEDICARE, OTHER, SELFPAY ==
[2025-10-14 20:05] LABS: Alanine Aminotransferase 56 U/L (0-40); Albumin Level 4.0 g/dL (3.5-5.0); Alkaline Phosphatase 112 U/L (39-117); Anion Gap 15 (12-20); Aspartate Amino Transferase 30 U/L (5-37); Blood Urea Nitrogen 51 mg/dL (9-16); Calcium 9.5 mg/dL (8.4-10.2); Carbon Dioxide 22 mmol/L (22-29); Chloride 106 mmol/L (96-108); Cholesterol 168 mg/dL (<200); Estimated Glomerular Filt Rate 39; HDL Cholesterol 56 mg/dL (>40); Potassium 4.8 mmol/L (3.3-5.1); Sodium 138 mmol/L (135-145); Total Protein 6.7 g/dL (6.5-8.0); Triglycerides 65 mg/dL (<150)
--- OUTSIDE RECORDS SUMMARY | 2025-10-14 23:05 | XMS_ITS | Encounter Summary ---
Author Organization [facility] Address [address] [facility] [address] [place] [address] Phone Care Team Providers Care Warehouse Lead Name Role Phone Randal Pinon Primary Care Provider [phone] Encounter Details Date Type Department Care Team (Late st Contact Info) Description 09/09/2025 Telephone Adimab [facility] [address] [place] [address] Candace Meyers LDN [address] [facility], 1st [place] [address] Social History Tobacco Use Types Packs/Day Years Used Date Smoking Tobacco: Former Cigarettes Passive Smoke Exposure: Past Smokeless Tobacco: Never Alcohol Use Standard Drinks/Week Comments Not Currently 0 (1 standard drink = 0.6 oz pur e alcohol) Education Answer Date Recorded Are you interested in more education? Not on blue e 03/23/2023 Are you concerned about learning? Not on file 03/23/2023 No 03/23/2023 No 03/23/2023 Digital Access Answer Date Recorded No 04/21/2023 No 04/21/2023 Reliable internet access at home? Not on file 04/21/2023 Device with a working camera? Not on file Intimate Partner Violence Answer Date R ecorded Are you denied basic needs s uch as food, clothing, or medical care? No 06/06/2024 In the past 12 months have y ou been in a relationship with a person who hurts, threatens, or tries to control you? No 06/06/2024 Are you denied basic needs s uch as food, clothing, or medical care? No 06/06/2024 In the past 12 months have y ou been in a relationship with a person who hurts, threatens, or tries to control you? No 06/06/2024 Sex and Gender Information Value Date Recorded Sex Assigned at Male 02/02/2024 10:59 AM EST Legal Sex Male 10:14 PM EDT Gender Identity Male 02/02/2024 10:59 AM EST Sexual Orientation Straight 02/02/2024 10 :59 AM EST documented as of this encounter Progress Notes * Candace Meyers LDN - 09/09/2025 2:59 PM EDT Ok perfect thank you I told them to reach out sooner if having lows or waking up <100 * Enedelia Duncan CNP - 09/09/2025 2:55 PM EDT I agree with your plan, I think if they adjust the insulin at dinner for a smaller meal, this will help protect against overnight lows, however if despite this still noticing lows should reach out and let us know * Candace Meyers LDN - 09/09/2025 2:46 PM EDT Images from the original note were not included. Grayson Mcdaniels, Saw Max today. Time in range has increased from last visit. Occasionally trending lower overnight, noted appetite is less than it was before. We reviewed how to adjust dinner dose of insulin ifhe is eating a smaller meal at that time (reducing by 1 - 2 units), also noted PCP stopped Jardiance to see if it is impacting memory, encouraged them to keep a close eye on sugars if it is reintroduced, also low alarm was turned off again today, reviewed importance, Max does not remember turning off, showed both how to check if it is on and how to turn it on if it was off. Just wanted to see if you would adjust anything further at this time. Is taking: Basaglar 8 units daily at night Novolog 4 units with breakfast and 6 units with dinner Trulicity 0.75 mg weekly on Sunday Reports he was taken off Jardiance by PCP, reports has been of for two week, reports this was to see if impacting memory documented in this encounter Plan of Treatment Upcoming Encounters Date Type Department Care Team (Late st Contact Info) Description 12/03/2025 10:00 AM EST Office Visit [facility] Diabetes [address] [address] Enedelia Duncan CNP [address] [place] [address] 03/23/2026 11:00 AM EDT Nutrition [facility] Diabetes [address] [address] Candace Meyers LDN [address] [place] [address] documented as of this encounter Visit Diagnoses Not on filedocumented in this encounter Care Teams Warehouse Lead Relationship Specialty Start Date End Date Randal Pinon DO [address] [place] [address] PCP - General Internal Medicine 08/05/25 documented as of this encounter Additional Source Comments The information contained in this document represents components of the legal health record. It is not the complete legal health record.[facility]
--- OUTSIDE RECORDS SUMMARY | 2025-10-14 23:05 | XMS_ITS | Encounter Summary ---
Author Organization [facility] Address [address] [facility] [address] [place] [address] Phone Care Team Providers Care Litharge Mill Operator Name Role Phone Randla Pinon Primary Care Provider [phone] Encounter Details Date Type Department Care Team (Late st Contact Info) Description 08/26/2025 Procedure Pass [facility], [address] [place] [address] Social History Tobacco Use Types Packs/Day Years [...] AM EST documented as of this encounter Plan of Treatment Upcoming Encounters Date Type Department Care Team (Late st Contact Info) Description 12/03/2025 10:00 AM EST Office Visit [facility] Diabetes [address] [address] Enedelia Duncan, REGULATORY AFFAIRS PORTFOLIO LEADER [address] [place] [address] 03/23/2026 11:00 AM EDT Nutrition [address] [address] Candace Meyers, LIVE [address] [place] [address] documented as of this encounter Visit Diagnoses Not on filedocumented in this encounter Care Teams Litharge Mill Operator Relationship Specialty Start Date End Date Randal Pinon DO [address] [place] [address] PCP - General Internal Medicine 08/05/25 documented as of this encounter Additional Source Comments The information contained in this document represents components of the legal health record. It is not the complete legal health record.[facility]
--- OUTSIDE RECORDS SUMMARY | 2025-10-14 23:05 | XMS_ITS | Encounter Summary ---
Author Organization [facility] Address [address] [facility] [address] [place] [address] Phone Care Team Providers Care Interactive Media Designer Name Role Phone Randal Pinon DO Primary Care Provider [phone] Reason for Referral * MRI/CAT Scan - Closed Specialty Diagnoses / Procedures Referred By Rhoda fields Referred To Contact Radiology Diagnoses Disorientation, unspecified Procedures MRI Brain Randal Pinon DO [address] [facility] [address] [place], [place] Phone: tel: fax: [email or web address] Referral ID Status Reason Start Date Expiration Date Visits Re quested Visits Authorized [id number] Closed 08/26/2025 08/26/2026 1 1 Encounter Details Date Type Department Care Team (Late st Contact Info) Description 08/26/2025 Transcribe Orders Virtual Department [address] [place] [address] Randal Pinon DO [address] [facility] [place] [address] [email or web address] Disorientation, unspecified (Primary Dx) Social History Tobacco Use Types Packs/Day Years [...] Description 12/03/2025 10:00 AM EST Office Visit [facility] [address] [place] [address] Enedelia Duncan CNP [address] [place] [address] 03/23/2026 11:00 AM EDT Nutrition [facility] Diabetes [address] [address] Candace Meyers LDN [address] [place] [address] documented as of this encounter Results * MRI BRAIN WITHOUT CONTRAST (09/27/2025 11:53 AM EST) Anatomical Region Laterality Modality Head Magnetic Resonan ce 09/29/2025 10:1 3 AM EST Impressions 09/29/2025 10:29 AM EST 1. No definite regional brain parenchymal volume loss. Probable mild chronic small vessel disease. Narrative 09/29/2025 10:29 AM EST MRI BRAIN WITHOUT CONTRAST Referring clinician's provided indication for this examination in [facility]: Outside Radiology Order; disorientation TECHNIQUE: MRI BRAIN WITHOUT CONTRAST Multi-sequence, multi-planar MRI of the brain was performed without intravenous contrast. COMPARISON: FINDINGS: Brain Parenchyma: No cortical or large lacunar infarct. No parenchymal microhemorrhage or evidence of superficial siderosis. 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 There are scattered foci of T2 hyperintensity in the white matter, likely a manifestation of mild chronic small vessel disease. Ventricular System and Extra-Axial Spaces: There is mild diffuse brain parenchymal volume loss. No evidence of midline shift or hydrocephalus. Extracranial Structures: Expected arterial flow signal is observed at the skull base. Procedure Note Syed Suarez DO - 09/29/2025 MRI BRAIN WITHOUT CONTRAST Referring clinician's provided indication for this examination in [facility]:Outside Radiology Order; disorientation TECHNIQUE: MRI BRAIN WITHOUT CONTRAST Multi-sequence, multi-planar MRI of the brain was performed withoutintravenous contrast. COMPARISON: FINDINGS: Brain Parenchyma: No cortical or large lacunar infarct. No parenchymalmicrohemorrhage or evidence of superficial siderosis. There is a tiny oldright cerebellar infarct. There are scattered foci of T2 hyperintensity inthe white matter, likely a manifestation of mild chronic small vesseldisease. Ventricular System and Extra-Axial Spaces: There is mild diffuse brainparenchymal volume loss. No evidence of midline shift or hydrocephalus. Extracranial Structures: Expected arterial flow signal is observed at theskull base. IMPRESSION: 1. No definite regional brain parenchymal volume loss. Probable mildchronic small vessel disease. us Ranadl A Bigda DO IMG MR HEAD/NECK Final Result documented in this encounter Visit Diagnoses Diagnosis Disorientation, unspecified- Primary Disorientation, unspecified documented in this encounter Care Teams Interactive Media Designer Relationship Specialty Start Date End Date Jackieadolfo Randal Velázquez DO [address] [place] [address] [email or web address] PCP - General Internal Medicine 08/05/25 documented as of this encounter Additional Source Comments The information contained in this document represents components of the legal health record. It is not the complete legal health record.[facility]
--- OUTSIDE RECORDS SUMMARY | 2025-10-14 23:06 | XMS_ITS | Encounter Summary ---
Author Organization [facility], Address [address] [place] [address] Phone Care Team Providers Care Patient Appointment Coordinator Name Role Phone Jackieadolfo Randal ANGUIANO Primary Care Provider [phone] Encounter Details Date Type Department Care Team (Late st Contact Info) Description 07/20/2023 Documentation Only [facility] [address] [place] [address] Millie Christiansen MD Social History [...] Care Team (Late st Contact Info) Description 02/12/2026 10:30 AM EDT [facility] [place] [address] Kendrick Argueta MD [address] [place] [phone] documented as of this encounter Visit Diagnoses Not on filedocumented in this encounter Care Teams Patient Appointment Coordinator Relationship Specialty Start Date End Date Kathrin DO Randal [address] [place] [address] PCP - General 09/30/19 documented as of this encounter
--- OUTSIDE RECORDS SUMMARY | 2025-10-14 23:06 | XMS_ITS | Clinical Summary ---
Author Organization [facility] Address [address] [address] Phone Care Team Providers Care [place] [place] Name Role Phone Randal Pinon Primary Care Provider Allergies Active Allergy Reactions Criticality Noted Date Comments Lisinopril Other (See Comments),Cough 0 Patient denies Loratadine Other (See Comments) 02/16/2020 Patient denies Medications cholecalciferol, vitamin D3, 25 mcg (1,000 unit) capsule Take 2 capsules by mouth. Active ketoconazole 2 % cream APPLY TO THE AFFECTED AREA(S) BY TOPICAL ROUTE ONCE DAILY Active lovastatin (MEVACOR) 40 MG tablet Take 1 tablet by mouth daily. Active metoprolol succinate (TOPROL-XL) 25 MG 24 hr tablet 06/20/20 23 Active sildenafiL (VIAGRA) 50 mg tablet Take 1 tablet by mouth as needed. Active sucralfate (CARAFATE) 1 gram tablet Take 1 tablet (1 g total) by mouth 4 (four) times a day as needed. 30 tablet 02/02/20 24 Active Additional Information Patient not taking.Reported on 06/05/2025 insulin glargine-yfgn (SEMGLEE) 100 unit/mL (3 mL) subcutaneous penIndications:T ype 2 diabetes mellitus with stage 3b chronic kidney disease, with long-term current use of insulin Inject 8 Units under the skin daily. E11.22 15 mL 3 02/20/20 25 Active TRULICITY 0.75 mg/0.5 mL subcutaneous injectionIndicat ions:Type 2 diabetes mellitus with stage 3b chronic kidney disease, with long-term current use of insulin Inject 0.75 mg every week by subcutaneous route 6 mL 3 03/03/20 Active NOVOLOG FLEXPEN U-100 INSULIN 100 unit/mL (3 mL) flexpenIndicatio ns:Type 2 diabetes mellitus with stage 3b chronic kidney disease, with long-term current use of insulin Takejust before 4u breakfast and 6u supper. Do not take if you are not eating. 15 mL 3 03/03/20 25 Active empagliflozin (JARDIANCE) 10 mg tabletIndication s:Type 2 diabetes mellitus with stage 3b chronic kidney disease, with long-term current use of insulin Take 1 tablet (10 mg total) by mouth daily. 90 tablet 3 03/03/20 25 Active mirtazapine (REMERON) 30 MG tablet Take 30 mg by mouth nightly at bedtime. Active insulin pen needles, disposable, 31 gauge x 02/08 NdleIndications: Type 2 diabetes mellitus with stage 3b chronic kidney disease, with long-term current use of insulin 1 each by Miscellaneous route 3 (three) times a day. 180 each 3 06/12/20 Active ACCU-CHEK GUIDE TEST STRIPS Strp stripsIndication s:Type 2 diabetes mellitus with stage 3b chronic kidney disease, with long-term current use of insulin 1 each by Miscellaneous route 3 (three) times a day before meals. E11.22 Z79.4 300 strip 3 09/11/20 Active ACCU-CHEK GUIDE GLUCOSE METER Misc meterIndications :Type 2 diabetes mellitus with stage 3b chronic kidney disease, with long-term current use of insulin by Miscellaneous route 3 (three) times a day before meals. E11.22 Z79.4 1 each 09/11/20 Active ACCU-CHEK SOFTCLIX LANCETSIndicatio ns:Type 2 diabetes mellitus with stage 3b chronic kidney disease, with long-term current use of insulin 1 each by Miscellaneous route 3 (three) times a day before meals. E11.22 Z79.4 300 each 3 09/11/20 25 Active Hospital, Clinic, or Other Facility Administered Medication Ordered Dose Route Frequency Start Date End Date Status triamcinolone acetonide (KENALOG-40) 40 mg/mL injection 20 mgIndications:Bila teral hand pain,Acquired trigger finger 20 mg See Adm Inst See admin instructions 06/27/2024 Active BUPivacaine HCl (MARCAINE) 0.25% injection 0.5 mLIndications:Bila teral hand pain,Acquired trigger finger 0.5 mL See Adm Inst See admin instructions 06/27/2024 Active lidocaine (XYLOCAINE) 1% injection 0.5 mLIndications:Bila teral hand pain,Acquired trigger finger 0.5 mL See Adm Inst See admin instructions 06/27/2024 Active Active Problems Problem Noted Date Diagnosed Date Hypertension 06/05/2024 Assessment & Plan (06/05/2025 11:07 AM EDT): Blood pressure in excellent range today BP Goal < 130/80 On BB, SGLT2i also likely offering modest benefit for blood pressure Most recent GFR on file is 32 Follows with nephrology Assessment & Plan (03/03/2025 12:49 PM EDT): Blood pressure in good range today BP Goal < 130/80 On BB, SGLT2i likely offering modest benefit for blood pressure GFR 32 Assessment & Plan (10/31/2024 1:13 PM EST): Blood pressure in very good range today BP Goal < 130/80 On BB, SGLT2i likely offering modest benefit for blood pressure Most recent GFR on file is 36 Assessment & Plan (07/30/2024 11:41 AM EDT): Blood pressure in good range today BP Goal < 130/80 On BB, SGLT2i likely offering modest benefit for blood pressure Hyperlipidemia 06/05/2024 Assessment & Plan (06/05/2025 11:11 AM EDT): Most recent lipid panel reviewed Goal LDL <70 with DM, more ideally <55 with DM, CKD, most recent LDL is above goal No longer on statin therapy Most recent GFR on file is 32 Assessment & Plan (03/03/2025 12:49 PM EDT): No recent lipid panel to review Goal LDL <70 with DM, more ideally <55 with DM, CKD Continues on moderate intensity statin Most recent GFR on file is 32 Assessment & Plan (10/31/2024 1:14 PM EST): No recent lipid panel to review Goal LDL <70 with DM, more ideally <55 with DM, CKD Continues on moderate intensity statin Most recent GFR on file is 36 Assessment & Plan (07/30/2024 11:41 AM EDT): No recent lipid panel to review Goal LDL <70 with DM, more ideally <55 with DM, CKD Continues on moderate intensity statin Chronic kidney disease (CKD) 06/05/2024 Cardiac dysrhythmia 06/05/2024 Type 2 diabetes mellitus wit h stage 3b chronic kidney disease, with long-term current use of insulin 06/25/2023 Assessment & Plan (06/05/2025 11:19 AM EDT): Control is good, we discussed reasonable target A1c goal, ~7.5-8%, lower would be good only if hypoglycemia can continue to be avoided Continues on basal insulin in the evening and bolus insulin with breakfast and supper, these continue at modest doses, we discussed that mealtime insulin can be adjusted based on planned meal, if takes full dose but has smaller meal than expected then supplementing with something to prevent a low is advisable Max is tolerating his noninsulin therapies well and we discussed the renal and cardiac benefits of SGLT2i and GLP1ra therapies, he did not tolerate optimized dosage of Trulicity well due to aggressive weight loss and appetite loss, it would be most prudent to keep this at current doses given the stability of his glucose patterns Max has not been very active, he participates in ADLs and helps with errands and household activities, his is fortunately very active and tries to involve Max in activities with her, otherwise he spends time sedentary Based on CGM data, Max's hypoglycemia risk is low; he has appreciated CGM, encouraged continued for pattern recognition and using sensor information and planned meal to be flexible with mealtime dosing of Novolog Encouraged continued efforts at balanced, mindful eating Max will return to meet with me next year, he has an upcoming visit with Candace Meyers in 3 months, and with Enedelia Duncan in 6 months, encouraged to reach out with any questions or concerns in the interim Assessment & Plan (03/03/2025 12:48 PM EDT): Stable control, A1c goal continues to be ~8%, lower if able to avoid hypoglycemia, Max is achieving this Continues on basal insulin in the evening and bolus insulin with breakfast and supper at modest doses Max is doing well with this Max is tolerating his noninsulin therapies well and we discussed the renal and cardiac benefits of these, he did not tolerate optimized dosage of Trulicity well due to aggressive weight loss and appetite loss, it would be most prudent to keep these at current doses given the stability of his glucose patterns Has appreciated CGM, encouraged continued for pattern recognition Encouraged continued efforts at balanced, mindful eating Encouraged efforts at physical activity as tolerated Max has follow up set up with a member of our team every 3 months through this year. Encouraged reaching out with any questions or concerns in the interim Assessment & Plan (10/31/2024 1:11 PM EST): Control is stable, we discussed reasonable target A1c goal, ~8%, lower would be good only if hypoglycemia can continue to be avoided Continues on basal insulin in the evening and bolus insulin with breakfast and supper, these continue at modest doses Max is tolerating his noninsulin therapies well and we discussed the renal and cardiac benefits of these, he did not tolerate optimized dosage of Trulicity well due to aggressive weight loss and appetite loss, it would be most prudent to keep these at current doses given the stability of his glucose patterns Max has not been very active, he participates in ADLs and helps with household activities but spends much time sedentary, we discussed breaking up sedentary periods with hourly standing, walking in place while watching TV, etc Based on CGM data, Max's hypoglycemia risk is low; he has appreciated CGM, encouraged continued for pattern recognition Encouraged continued efforts at balanced, mindful eating Max will return to meet with me next summer, Candace Meyers in December, and Enedelia Duncan in February, encouraged reaching out with any questions or concerns in the interim Assessment & Plan (07/30/2024 11:39 AM EDT): Improving control overall Continues on basal insulin in the evening and bolus insulin with breakfast and supper Max is doing well with this, elevations are more consistent over the past week, there was some inconsistent insulin dosing so we discussed getting back on routine will likley lead to improved blood sugars There is room to optimize Trulicity or Jardiance, though Trulicity may lead to weight loss, Jardiance is less likely to lead to weight loss but could still contribute, will continue current doses for now Max reports approaching low levels occasionally, reports frequent snacking to prevent this but feels this is a habit and doesn't intend to break this, as recalled this is a pattern that Max has had in the past of frequent snacking even with elevated blood sugar patterns Hypoglycemia risk in the late evening seems most related to inconsistent meal size/eating, we discussed reducing dinnertime insulin if having less to eat than usual, will need to reduce long acting insulin if overnight lows occur Weight remains stable Has appreciated CGM, encouraged continued for pattern recognition Encouraged continued efforts at balanced, mindful eating Encouraged efforts at physical activity as tolerated Max will return to meet with Dr. Whittington in October, Candace in December, we will meet again in February. Encouraged reaching out with any questions or concerns in the interim Assessment & Plan (04/22/2024 10:40 AM EDT): Control has improved based upon the patient's dexcom G7 download. No frequent or severe hypoglycemia. He has been back on the jardiance and trulicity for 3 or 4 weeks now. Since being back on the medication his glucose levels have drastically improved. He has been having a lot of dried fruits for snacks lately. He is going to work on cutting back on these to help with his glucose levels. Will increase his dinner novolog to help with the post dinner highs. Continue to work on eating healthy and being active. To call or message with any issues managing his glucose levels. Up to date with [facility] Assessment & Plan (03/13/2024 11:48 PM EDT): Control is suboptimal based upon the patient's dexcom G7 download. No frequent or severe hypoglycemia. He has been without his trulicity and jardiance for 3 to 4 weeks. This is the likely cause of the elevated glucose levels. Will adjust his insulin higher as documented until he gets his other medications in. Once he starts getting these medications again will lower his insulin doses back to his current dosing to prevent lows. Continue to work on eating healthy and being active. To call or message with any issues managing his glucose levels. Thinks is due to schedule annual ophtho exam. Assessment & Plan (01/23/2024 1:17 PM EST): Improving control since beginning insulin, though recent worsening control with hyperglycemia overall, fasting sugars tend to be >180, sustained prandial elevations after breakfast and throughout the day Continues on basal insulin in the evening and bolus insulin with breakfast and supper Mxa is doing well with this, elevations seem to be most sustained in the midday, this is when Max tends to snack more, discussed strategies to reduce this to aid in blood sugar reduction There is room to optimize Trulicity or Jardiance, though Trulicity may lead to weight loss, Jardiance is less likely to lead to weight loss but could still contribute, will continue current doses for now Recommended increasing Basaglar by one unit and working on reducing midday snacking We discussed continuing to use CGM for pattern recognition and to use the data to see if making mealtime adjustments have any impact on lower blood sugar patterns. Weight remains stable, has gained weight since last visit Has appreciated CGM Encouraged continued efforts at balanced, mindful eating Encouraged efforts at physical activity as tolerated Max will return to meet with Abena in 2 weeks, we will meet again in February, encouraged reaching out with any questions or concerns in the interim Assessment & Plan (12/06/2023 2:22 PM EST): Improving control since beginning insulin, fasting sugars have improved mostly <180, after breakfast numbers still lead to sustained prandial elevations Continues on basal insulin in the evening and bolus insulin with breakfast and supper Max is doing well with this, elevations seem to be less significant around meal times, Max just remains above target throughout the day after initial meal, we discussed increasing breakfast dose by a unit, also discussed increasing suppertime dose by one unit for larger meals There is always room to optimize Trulicity or Jardiance, though Trulicity may lead to weight loss, Jardiance is less likely to lead to weight loss but could still contribute We discussed continuing to use CGM for pattern recognition and to use the data to see if making mealtime adjustments have any impact on lower blood sugar patterns. Weight remains stable Has appreciated CGM Advised to continue current doses of SGLT2i and GLP1ra Encouraged continued efforts at balanced, mindful eating Encouraged efforts at physical activity as tolerated Max will return to meet with me in 1 month and with me in 2 months with Abena. Max is encouraged to reach out sooner with any questions or concerns Assessment & Plan (11/08/2023 12:17 PM EST): Improving control since beginning insulin, fasting sugars have been >180, after breakfast numbers still lead to sustained prandial elevations Continues on basal bolus insulin with breakfast and supper Max is doing well with this, elevations seem to be less significant around meal times, Max just remains above target throughout the day, we discussed increasing basal insulin which he is agreeable to We also revisited that there is always room to optimize Trulicity or Jardiance, though Trulicity may lead to weight loss, Jardiance is less likely to lead to weight loss but could still contribute We discussed continuing to use CGM for pattern recognition and to use the data to see if making mealtime adjustments have any impact on lower blood sugar patterns. Weight remains stable and has actually increased since last visit Has appreciated CGM Advised to continue current doses of SGLT2i and GLP1ra Encouraged continued efforts at balanced, mindful eating Encouraged efforts at physical activity as tolerated Max will return to meet with me in 1 month and with me in 3 months with Abena. Max is encouraged to reach out sooner with any questions or concerns Assessment & Plan (09/04/2023 12:34 PM EDT): Improving control since beginning insulin, fasting sugars have been in the 100s, after breakfast numbers still lead to sustained prandial elevations, but this seems to be a bit less than previous since starting on a breakfast dose of Novolog Max is doing well with this, but still having sustained prandial elevations throughout the rest of the day We discussed that either Trulicity could be optimized, but may lead to weight loss, Jardiance could be optimized, which is less likely to lead to weight loss, but could still contribute, or increasing Novolog dose at breakfast and increasing frequency of dosing Max would like to increase Novolog breakfast dose and frequency, but is hesitant to take before each meal We will start with increasing breakfast dose to 2 units, and starting a dose of 1 unit at dinner, Max is agreeable to this We discussed continuing to use CGM for pattern recognition and to use the data to see if making mealtime adjustments have any impact on lower blood sugar patterns. Weight remains stable and has actually increased since last visit Has appreciated CGM Will continue basal insulin at current dose for now, consistent drop in readings overnight Advised to continue current doses of SGLT2i and GLP1ra Encouraged continued efforts at balanced, mindful eating Encouraged efforts at physical activity as tolerated Max will return to meet with Abena in 1 month and with me in 2 months. Max is encouraged to reach out sooner with any questions or concerns Assessment & Plan (07/05/2023 3:39 PM EDT): Improving control since beginning insulin, fasting sugars have been in the 100s Still having sustained prandial elevations, we discussed continuing to use CGM for pattern recognition and to use the data to see if making mealtime adjustments have any impact on lower blood sugar patterns. If not, we can optimize SGLT2i therapy Would avoid increasing GLP-1ra due to weight loss Weight is stable from last week, we revisited weight loss can be related to persistent hyperglycemia, advising that as blood sugars come down, if weight is still dropping, then we would need to discontinue Trpillo Has appreciated CGM, training provided on G7 personal sensor today, Max successfully inserted CGM in office today Will continue basal insulin at current dose for now, consistent drop in readings overnight, overall patterns improving over the past several days, these may continue to improve with the longer CGM is used and the more feedback Max can use to make realtime adjustments to lifestyle Advised to continue current doses of SGLT2i and GLP1ra Encouraged continued efforts at balanced, mindful eating Encouraged efforts at physical activity as tolerated Recent labs reviewed today with Max, GFR remains stable since SGLT2i initiation Max will return to meet with Abena in 1 month and with me in 2 months. Max is encouraged to reach out sooner with any questions or concerns CGM Training Type of Diabetes: Diabetes mellitus Type 2 Assessment/HPI: Max is here today for CGM training Procedures: Glucose Monitoring: Type of Sensor: DexDesti G7 Instruction: Patient Instructed on:, Calibrations, When to test BS, Troubleshooting, What to expect with the sensor, Patient instructed to remove sensor if redness, pain or bleeding occurs. . Insertion Site Selected: left arm Site Prep: Insertion site wiped with alcohol. Insertion: completed, area looks good, no redness, no bleeding. Plan: Patient will remove sensor and replace sensor jon 10 days, he will return in 1 month for follow up appointment. Assessment & Plan (06/25/2023 7:51 PM EDT): Max has been having worsening glycemic control Fasting sugars all >200, we discussed that basal insulin is recommended and Max is agreeable to starting this Discussed weight loss could be related to persistent hyperglycemia Would also like to resume CGM and we discussed that with daily insulin, this would be covered with insurance, Dexcom G7 sample provided today and this was started. We will place an order for continued coverage, especially with insulin initiation Advised starting with conservative dose of insulin given age and comorbidities, starting with 0.1 units/kg/day Reviewed hypoglycemia signs, symptoms, and management Advised to continue current doses of SGLT2i and GLP1ra Encouraged continued efforts at balanced, mindful eating Encouraged efforts at physical activity as tolerated Labs placed to check in on kidney levels since SGLT2i initiation, encouraged Max to have these done sometime prior to next visit, would expect higher sugar on this BMP, this resulted back and GFR remains stable from previous draw in February We will follow up in 10 days for first CGM change and insulin follow up, but Max is encouraged to reach out sooner with any questions or concerns CGM Trial Type of Diabetes: Diabetes mellitus Type 2 Assessment/HPI: Max is here today for CGM trial. Procedures: Glucose Monitoring: Type of Sensor: Dexcom G7 personal Instruction: Patient Instructed on:, Calibrations, When to test BS, Troubleshooting, What to expect with the sensor, Patient instructed to remove sensor if redness, pain or bleeding occurs. . Insertion Site Selected: arm Site Prep: Insertion site wiped with alcohol. Insertion: completed, area looks good, no redness, no bleeding. Plan: Patient will remove sensor and return in 10 days for follow up appointment. Instruction/Education: Medication: Medication: Basaglar kwik pen Instruction: Provider order reviewed with patient. When to take medication, dosage, and how to take medication. Information given on troubleshooting and side effects of medication. Education Materials Provided: BD pen insulin instruction and Tavia insulin injection handouts Insulin /Medication Instruction: Patient was instructed on the following topics: insulin pen, needle disposal, needle/lancet reuse, site selection, insulin storage Education Topics Discussed: medication, treatment of low BG using rule of 15 Patient Demonstrated: Injection with insulin demo pen on injection pad, will review again at next visit, demonstrates good technique, good understanding Encounters Date Type Department Care Team Description 10/08/2025 Telephone [facility] [address] [place] [address] [place] [address] Mckenna Schwab MA CLINICAL NOTES 09/28/[address] [place] [address] Candace Meyers LDN Dexcom not connecting to phone (Dexcom not connecting to phone) 09/27/2025 11:03 AM EST - 09/27/2025 11:59 PM EST Hospital Encounter [address] [place] [address] Randal Pinon, DO Discharge Disposition: Home or Self Care 09/11/[address] [place] [address] Candace Meyers LDN Dexcom not connecting to phone (Dexcom not connecting to phone) 09/09/2025 10:00 AM EDT Nutrition [address] [place] [address] Jonna Whittington MD Dawicki, Jessica Jeanne, LDN Type 2 diabetes mellitus with stage 3b chronic kidney disease, with long-term current use of insulin (Primary Dx) 09/09/[address] [place] [address] Candace Meyers LDN 08/26/2025 Procedure Pass [address] [place] [address] 08/26/2025 Transcribe Orders Virtual Department [address] [place] [address] Randal Pinon DO Disorientation, unspecified (Primary Dx) 08/10/2025 2:32 PM EDT - 08/10/2025 11:59 PM EDT Hospital Encounter [facility] [address] [place] [address] Kendrick Argueta MD Discharge Disposition: Home or Self Care 08/10/2025 Transcribe Orders [facility] [address] [place] [address] Kendrick Argueta MD Vitamin D deficiency, unspecified (Primary Dx); Type 2 diabetes mellitus with stage 3b chronic kidney disease, with long-term current use of insulin 08/04/2025 3:00 PM EDT Nurse Only [facility] [address] [place] [address] Jonna Whittington MD Type 2 diabetes mellitus with stage 3b chronic kidney disease, with long-term current use of insulin (Primary Dx) 07/30/2025 Telephone [facility] [address] [place] [address] Enedelia Duncan, WILDER Dexcom issue (Dexcom issue); Patient Returned Call from Last 3 Months Immunizations Immunization Administration Dates Next Due COVID-19 (Pre-09/17) Moderna Vaccine, mRNA, PF 1 RSV Vaccine (monovalent, adjuvanted) 01/01/2024 Zoster recombinant 03/06/2024 Social History Tobacco Use Types Packs/Day Years Used Date Smoking Tobacco: Former Cigarettes Passive Smoke Exposure: Past Smokeless Tobacco: Never Tobacco Cessation:Counseling Given: Not Answered Alcohol Use Standard Drinks/Week Comments Not Currently [...] Orientation Straight 02/02/2024 10 :59 AM EST Last Filed Vital Signs Vital Sign Reading Time Taken Comments Blood Pressure 116/66 06/05/2025 10:32 AM EDT Pulse 64 06/05/2025 10:32 AM EDT Temperature 35.9 C (96.7 F) 06/06/2024 12:34 PM EDT Respiratory Rate 11 06/06/2024 12:50 PM EDT Oxygen Saturation 98% 06/05/2025 10:32 AM EDT Inhaled Oxygen Concentration - - Weight 80.7 kg (178 lb) 09/21/2025 5:09 PM EDT Height 170.2 cm (5' 7 ) 09/21/2025 5:09 PM EDT Body Mass Index 27.88 09/21/2025 5:09 PM EDT Plan of Treatment Upcoming Encounters Date Type Department Care Team (Late st Contact Info) Description 12/03/2025 10:00 AM EST Office Visit [facility] Diabetes [address] [place] [address] Enedelia Duncan CNP [address] [place] [address], [address] [place] [address] 03/23/2026 11:00 AM EDT Nutrition [facility] Diabetes [address] [place] [address] Candace Meyers, LDN 22 [facility], 1st [place] [address] [email or web address] Health Maintenance Due Date Last Done Comments Adult Td,Tdap Booster 1935 DEPRESSION SCREENING 1947 DIABETIC EYE EXAM 07/24/2022 COVID-19 VACCINE ( season) 2025 09/11/2025, 09/16/2024, 08/31/2023, Additional history exists HEMOGLOBIN A1C 02/07/2026 08/10/2025, 06/26, 03/04/2024, Additional history exists RSV VACCINE Completed 01/01/2024 ZOSTER VACCINES Completed 05/08/2024, 03/06/2024 PNEUMOCOCCAL VACCINES (50+ years) Completed 02/06/2025 INFLUENZA VACCINE Completed 08/26/2025, 08/26/2024 HEPATITIS A VACCINES Aged Out No long er eligible based on patient's age to complete this topic HIB VACCINES Aged Out No longer eligi ble based on patient's age to complete this topic MENINGOCOCCAL VACCINES (ACWY) Aged Out No longer eligible based on patient's age to complete this topic MENINGOCOCCAL VACCINES (B) Aged Out N o longer eligible based on patient's age to complete this topic Medical Devices Not on file Procedures Procedure Name Priority Date/Time Associated Diagnosis Comments MRI BRAIN WITHOUT CONTRAST Routine 09/27/2025 11:53 AM EST Disorientation, unspecified CBC Routine 08/10/2025 2:49 PM EDT Vitamin D deficiency, unspecified Type 2 diabetes mellitus with stage 3b chronic kidney disease, with long-term current use of insulin IRON Routine 08/10/2025 2:49 PM EDT Vitamin D deficiency, unspecified Type 2 diabetes mellitus with stage 3b chronic kidney disease, with long-term current use of insulin PARATHYROID HORMONE (PTH) Routine 08/10/2025 2:49 PM EDT Vitamin D deficiency, unspecified Type 2 diabetes mellitus with stage 3b chronic kidney disease, with long-term current use of insulin HEMOGLOBIN A1C Routine 08/10/2025 2:49 PM EDT Type 2 diabetes mellitus with stage 3b chronic kidney disease, with long-term current use of insulin TOTAL PROTEIN, RANDOM URINE Routine 08/10/2025 2:49 PM EDT Vitamin D deficiency, unspecified Type 2 diabetes mellitus with stage 3b chronic kidney disease, with long-term current use of insulin 25-OH VITAMIN D Routine 08/10/2025 2:49 PM EDT Vitamin D deficiency, unspecified RENAL PANEL Routine 08/10/2025 2:49 PM EDT Vitamin D deficiency, unspecified Type 2 diabetes mellitus with stage 3b chronic kidney disease, with long-term current use of insulin from Last 3 Months Results * MRI BRAIN WITHOUT CONTRAST (09/27/2025 11:53 AM EST) Anatomical Region Laterality Modality Head Magnetic Resonan ce 09/29/2025 10:1 3 AM EST Impressions 09/29/2025 10:29 AM EST 1. No definite regional brain parenchymal volume loss. Probable mild chronic small vessel disease. Narrative 09/29/2025 10:29 AM EST MRI BRAIN WITHOUT CONTRAST Referring clinician's provided indication for this examination in Epic: Outside Radiology Order; disorientation TECHNIQUE: MRI BRAIN [...] clinician's provided indication for this examination in [facility]:Outside Radiology Order; disorientation TECHNIQUE: MRI BRAIN WITHOUT [...] loss. Probable mildchronic small vessel disease. us Randal Eber Pinon DO IMG MR HEAD/NECK Final Result * Iron (08/10/2025 2:49 PM EDT) IRON 64 45 - 160 ug/dL [facility] Blood 08/10/2025 2:49 PM EDT 08/10/2025 2:51 PM EDT us Kendrick Argueta MD LAB BLOOD ORDERABLES Final Resul t [facility] [address] [place] [address] * (ABNORMAL) Renal panel (08/10/2025 2:49 PM EDT) SODIUM 139 133 - 146 mmol/L [facility] POTASSIUM 4.4 3.3 - 5.1 mmol/L [facility] CHLORIDE 107 96 - 108 mmol/L [facility] CO2 22 21 - 35 mmol/L [facility] GLUCOSE 151(H) 70 - 99 mg/dL [facility] BUN 47(H) 6 - 19 mg/dL [facility] CREATININE 1.90(H) 0.5 - 1.5 mg/dL [facility] CALCIUM 9.0 8.4 - 10.3 mg/dL [facility] PHOSPHORUS 3.2 2.7 - 4.5 mg/dL [facility] ALBUMIN 4.4 3.9 - 4.8 g/dL [facility] EGFR 34(L) >59 mL/min/1.7 3m2 [facility] Comment:Estimated glomerular filtration rate calculated using the CKD-EPI refit equation. ANION GAP 14 10 - 20 mmol/L [facility] Blood 08/10/2025 2:49 PM EDT 08/10/2025 2:51 PM EDT us Kendrick Argueta MD LAB BLOOD BKR ORDERABLES Final R esult Performing Organization Address City/[facility]/ZIP Co de Phone Number [address] [address] * Total protein, random urine (08/10/2025 2:49 PM EDT) URINE TOTAL PROTEIN 10.0 mg/dL [facility] Urine (Urine) 08/10/2025 2:4 9 PM EDT 08/10/2025 2:51 PM EDT us Kendrick Argueta MD LAB URINE ORDERABLES Final Resul t Performing Organization Address [facility]/ZIP Co de Phone Number [address] [address] * (ABNORMAL) 25-OH vitamin D (08/10/2025 2:49 PM EDT) 25 OH VIT D (TOTAL) 70(H) 30 - 60 ng/mL [facility] Blood 08/10/2025 2:49 PM EDT 08/10/2025 2:51 PM EDT us Kendrick Argueta MD LAB BLOOD BKR ORDERABLES Final R esult Performing Organization Address [facility]/ZIP Co de Phone Number [address] [address] * (ABNORMAL) CBC (08/10/2025 2:49 PM EDT) WBC 7.10 4.00 - 11.00 K/uL [facility] RBC 4.13(L) 4.50 - 5.90 M/uL [facility] HGB 12.7(L) 13.5 - 17.5 g/dL [facility] HCT 39.0(L) 41.0 - 53.0 % [facility] PLT 191 150 - 450 K/uL [facility] MCV 94.4 80.0 - 100.0 fL [facility] MCH 30.8 27.0 - 31.0 pg [facility] MCHC 32.6 32.0 - 36.0 g/dL [facility] RDW 13.2 11.5 - 14.5 % [facility] MPV 9.3 8.4 - 12.0 fL [facility] NRBC 0.00 0.00 /100 WBCs [facility] ABSOLUTE NRBC 0.00 0.00 K/uL [facility] Blood 08/10/2025 2:49 PM EDT 08/10/2025 2:51 PM EDT Kendrick Argueta MD LAB BLOOD BKR ORDERABLES Final R esult Performing Organization Address City/[facility]/ZIP Co de Phone Number [address] [address] * Parathyroid hormone (PTH) (08/10/2025 2:49 PM EDT) PARATHYROID HORMONE 23 15 - 65 pg/mL [facility] Blood 08/10/2025 2:49 PM EDT 08/10/2025 2:50 PM EDT Kendrick Argueta MD LAB BLOOD BKR ORDERABLES Final R esult Performing Organization Address City/[facility] Co de Phone Number [address] [address] * (ABNORMAL) Hemoglobin A1c (08/10/2025 2:49 PM EDT) HEMOGLOBIN A1C 7.1(H) 4.3 - 5.8 % [facility] Blood 08/10/2025 2:49 PM EDT 08/10/2025 2:50 PM EDT us Kendrick Argueta MD LAB BLOOD BKR ORDERABLES Final R esult [address] [address] from Last 3 Months Insurance MEDICARE PART A & [facility] EPO MEDIC[facility] PART [facility] & [facility] POS EPO ([address] [address] MEDICARE PART A & B Member Subscriber Plan / Payer (Ef fective 2002-Present) Name:Max Rodriguez Member ID:[id number] Relation to Subscriber:Self Name:Max Rodriguez Subscriber ID:[id number] Payer ID:[id number] Group ID:Not on file Type:Medicare Address: [employer] [address] POS EPO MEDICARE PART A & B Member Subscriber Plan / Payer ( fective 2002-Present) Name:Max Rodriguez Member ID:[id number] Relation to Subscriber:Self Name:Max Rodriguez Subscriber ID:[id number] Payer ID:[id number] Group ID:Not on file Type:Medicare Address: [employer] [address] [place] [address] [place], [place] [address]O POS EPO MEDICARE PART A & B [facility] POS EPO MEDICARE PART A & B [facility] POS EPO MEDICARE PART A & B [facility] POS EPO MEDICARE PART A & B [facility] POS EPO MEDICARE PART A & B [facility] [facility] POS EPO Care Teams Roller Billet Mill Relationship Specialty Start Date End Date Randal Pinon DO [address] [place] [address] PCP - General Internal Medicine 08/05/25 Additional Source Comments The information contained in this document represents components of the legal health record. It is not the complete legal health record.[facility]
--- OUTSIDE RECORDS SUMMARY | 2025-10-14 23:06 | XMS_ITS | Encounter Summary ---
Author Organization [facility] Address [address] [facility] [address] [place] [address] Phone Care Team Providers Care Children'S Nursery Assistant Name Role Phone Randal Pinon Primary Care Provider [phone] JackieRandal mata DO Primary Care Provider [phone] Encounter Details Date Type Department Care Team (Late st Contact Info) Description 02/02/2024 Procedure Pass [facility], Ct Scan - [address] [address] Social History Tobacco Use Types Packs/Day Years [...] with a working camera? Not on file Sex and Gender Information Value Date Recorded Sex Assigned at Male 02/02/2024 10:59 AM EST Legal Sex Male 10:14 PM EDT Gender Identity Male 02/02/2024 10:59 AM EST Sexual Orientation Straight 02/02/2024 10 :59 AM EST documented as of this encounter Plan of Treatment Upcoming Encounters Date Type Department Care Team (Late st Contact Info) Description 12/03/2025 10:00 AM EST Office Visit [facility] [address] [place] [address] Enedelia Duncan, GREEN BELT 22 [facility], [address] [place] [address] 03/23/2026 11:00 AM EDT Nutrition [facility] [address] [address] Candace Meyers, DANGELON 22 [facility], [address] [place] [address] documented as of this encounter Visit Diagnoses Not on filedocumented in this encounter Care Teams Children'S Nursery Assistant Relationship Specialty Start Date End Date Randal Pinon DO PCP - General Internal Medicine 07/24/22 08/04/25 Randal Pinon DO [address] [place] [address] PCP - General Internal Medicine 08/05/25 documented as of this encounter Additional Source Comments The information contained in this document represents components of the legal health record. It is not the complete legal health record.[facility]
--- OUTSIDE RECORDS SUMMARY | 2025-10-14 23:06 | XMS_ITS | Encounter Summary ---
Author Organization [facility], Address [address] [place] [address] Phone Care Team Providers Care Medication Tech Name Role Phone Jackieadolfo Randal ANGUIANO Primary Care Provider [phone] Encounter Details Date Type Department Care Team (Late st Contact Info) Description 07/20/2023 Documentation Only [facility] [address] [place] [address] Millie Christiansen MD Social History [...] [facility] [place] [address] Kendrick Argueta MD [address] [place] [phone] documented as of this encounter Visit Diagnoses Not on filedocumented in this encounter Care Teams Medication Tech Relationship Specialty Start Date End Date Kathrin DO Randal [address] [place] [address] PCP - General 09/30/19 documented as of this encounter
--- OUTSIDE RECORDS SUMMARY | 2025-10-14 23:06 | XMS_ITS | Encounter Summary ---
Author Organization [facility] Address [address] [facility] [address] [place] [address] Phone Care Team Providers Care Road Roller Operator Name Role Phone Randal Pinon DO Primary Care Provider [phone] Randal Pinon DO Primary Care Provider [phone] Encounter Details Date Type Department Care Team (Late st Contact Info) Description 02/25/2024 Transcribe Orders Virtual Department [address] [place] [address] Leigh Devine PA [address] [place] [address] [email or web address] Upper abdominal pain (Primary Dx); Biliary calculus of other site without obstruction Social History Tobacco Use Types Packs/Day Years [...] Description 12/03/2025 10:00 AM EST Office Visit [facility] [address] [place] [address] [place] [address] Enedelia Duncan, DYE RANGE OPERATOR 22 [facility], [address] [place] [address] 03/23/2026 11:00 AM EDT Nutrition [facility] [place] [address] [place] [address] Candace Meyers LDN [address] [place] [address] documented as of this encounter Results * US ABDOMEN LIMITED RIGHT UPPER QUADRANT (03/03/2024 11:13 AM EDT) Anatomical Region Laterality Modality Abdomen Ultrasound 03/03/2024 5:42 PM EDT Impressions 03/04/2024 5:45 AM EDT Cholelithiasis/sludge with mild gallbladder distention and diffuse wall thickening, likely reflecting an element of gallbladder inflammation although may be subacute. Lack of tense fundal distention and positive sonographic Gómez sign argue against acute cholecystitis. RECOMMENDATION: Consider surgical consultation. A clinically significant result was communicated on 03/04/2024 5:45 AM, Message ID [id number]. Narrative 03/04/2024 5:45 AM EDT US ABDOMEN LIMITED RIGHT UPPER QUADRANT Referring clinician's provided indication for this examination in Epic: Outside Radiology Order; upper abdomen pain TECHNIQUE: US Abdominal limited right upper quadrant. COMPARISON: CT ABDOMEN/PELVIS WITH CONTRAST FINDINGS: Liver: No focal lesions. Main Portal Vein: Patent with normal direction of flow. Gallbladder: Filled with sludge and shadowing stones. Mild diffuse wall thickening to 0.7 cm diameter. Similar distention compared to recent CT (although the fundus does not appear to tensely distended, flattened by the anterior abdominal wall). Gómez's Sign: Negative. Biliary: No intrahepatic or extrahepatic biliary ductal dilatation. The common bile duct measures 6 mm. Procedure Note Randal Martell MD - 03/04/2024 US ABDOMEN LIMITED RIGHT UPPER QUADRANT Referring clinician's provided indication for this examination in [facility]:Outside Radiology Order; upper abdomen pain TECHNIQUE: US Abdominal limited right upper quadrant. COMPARISON: CT ABDOMEN/PELVIS WITH CONTRAST FINDINGS: Liver: No focal lesions. Main Portal Vein: Patent with normal direction of flow. Gallbladder: Filled with sludge and shadowing stones. Mild diffuse wallthickening to 0.7 cm diameter. Similar distention compared to recent CT(although the fundus does not appear to tensely distended, flattened bythe anterior abdominal wall). Gómez's Sign: Negative. Biliary: No intrahepatic or extrahepatic biliary ductal dilatation. The common bile duct measures 6 mm. IMPRESSION: Cholelithiasis/sludge with mild gallbladder distention and diffuse wallthickening, likely reflecting an element of gallbladder inflammationalthough may be subacute. Lack of tense fundal distention and positivesonographic Gómez sign argue against acute cholecystitis. RECOMMENDATION: Consider surgical consultation. A clinically significant result was communicated on 03/04/2024 5:45 AM,Message ID [id number]. Leigh PINK IMG US ABDOMEN Final Re sult documented in this encounter Visit Diagnoses Diagnosis Upper abdominal pain- Primary Biliary calculus of other site without obstruction Upper abdominal pain Biliary calculus of other site without obstruction documented in this encounter Care Teams Road Roller Operator Relationship Specialty Start Date End Date Randal Pinon DO PCP - General Internal Medicine 07/24/22 08/04/25 Randal Pinon DO [address] [place] [address] [email or web address] PCP - General Internal Medicine 08/05/25 documented as of this encounter Additional Source Comments The information contained in this document represents components of the legal health record. It is not the complete legal health record.[facility]
--- OUTSIDE RECORDS SUMMARY | 2025-10-14 23:06 | XMS_ITS | Encounter Summary ---
Author Organization [facility], Address [address] [place] [address] Phone Care Team Providers Care Labor Contract Analyst Name Role Phone Jackieadolfo Randal ANGUIANO Primary Care Provider [phone] Encounter Details Date Type Department Care Team (Late st Contact Info) Description 07/20/2023 Documentation Only [facility] [address] [place] [address] Millie Christiansen MD Social History [...] [facility] [place] [address] Kendrick Argueta MD [address] [place] [phone] documented as of this encounter Visit Diagnoses Not on filedocumented in this encounter Care Teams Labor Contract Analyst Relationship Specialty Start Date End Date Kathrin DO Randal [address] [place] [address] PCP - General 09/30/19 documented as of this encounter
--- OUTSIDE RECORDS SUMMARY | 2025-10-14 23:06 | XMS_ITS | Encounter Summary ---
Author Organization [facility], Address [address] [place] [address] Phone Care Team Providers Care Crewman Main Battle Tank Name Role Phone Randal Pinon DO Primary Care Provider [phone] Encounter Details Date Type Department Care Team (Late st Contact Info) Description 02/04/2025 Documentation Only [facility] [address] [place] [address] Nissa Rodriguez [address] [place] [address] Social History Tobacco Use Types Packs/Day Years [...] Visit [facility] Shawna SLATER [address] [place] [phone] Kendrick Argueta MD [address] [place] [address] [place] [address] documented as of this encounter Visit Diagnoses Not on filedocumented in this encounter Care Teams Crewman Main Battle Tank Relationship Specialty Start Date End Date Randal Pinon DO 6 [facility] [place] [address] PCP - General 09/30/19 documented as of this encounter
--- OUTSIDE RECORDS SUMMARY | 2025-10-14 23:06 | XMS_ITS | Encounter Summary ---
Author Organization [facility], Address [address] [place] [address] Phone Care Team Providers Care Dowel Maker Name Role Phone Jackieadolfo Randal ANGUIANO Primary Care Provider [phone] Encounter Details Date Type Department Care Team (Late st Contact Info) Description 07/20/2023 Documentation Only [facility] [place] [address] Millie Christiansen MD Social History [...] Visit [facility] [place] [address] Kendrick Argueta MD [address] [place] [phone] documented as of this encounter Visit Diagnoses Not on filedocumented in this encounter Care Teams Dowel Maker Relationship Specialty Start Date End Date Kathrin DO Randal [address] [place] [address] PCP - General 09/30/19 documented as of this encounter
--- OUTSIDE RECORDS SUMMARY | 2025-10-14 23:06 | XMS_ITS | Encounter Summary ---
Author Organization [facility] Address [address] [facility] [address] [place] [address] Phone Care Team Providers Care Rotary Drill Rig Operator Name Role Phone Randal Pinon DO Primary Care Provider [phone] JackieRandal mata DO Primary Care Provider [phone] Encounter Details Date Type Department Care Team (Late st Contact Info) Description 06/06/2024 Procedure Pass [facility] Endoscopy Admitting Dept Virtual Department [address] [place] [address] Social History Tobacco Use Types Packs/Day Years [...] Description 12/03/2025 10:00 AM EST Office Visit [facility] Diabetes [address] [address] Enedelia Duncan, MANIPULATOR OPERATOR [address] [place] [address] 03/23/2026 11:00 AM EDT Nutrition [address] [address] Candace Meyers, LDN [address] [place] [address] documented as of this encounter Visit Diagnoses Not on filedocumented in this encounter Care Teams Rotary Drill Rig Operator Relationship Specialty Start Date End Date Randal Pinon DO PCP - General Internal Medicine 07/24/22 08/04/25 Randal Pinon DO [address] [place] [address] PCP - General Internal Medicine 08/05/25 documented as of this encounter Additional Source Comments The information contained in this document represents components of the legal health record. It is not the complete legal health record.[facility]
--- OUTSIDE RECORDS SUMMARY | 2025-10-14 23:06 | XMS_ITS | Encounter Summary ---
Author Organization [facility], Address [address] [place] [address] Phone Care Team Providers Care Student Admissions Clerk Name Role Phone Randal Pinon DO Primary Care Provider [phone] Encounter Details Date Type Department Care Team (Late st Contact Info) Description 08/10/2025 Documentation Only [facility] [address] [place] [address] Nissa Rodriguez [address] [place] [address] Social History Tobacco Use Types Packs/Day [...] Visit [facility] Shawna SLATER [address] [place] [phone] Kendrick Argueta MD [address] [place] [address] [place] [address] documented as of this encounter Visit Diagnoses Not on filedocumented in this encounter Care Teams Student Admissions Clerk Relationship Specialty Start Date End Date Randal Pinon DO 6 [place] [place] [phone] PCP - General 09/30/19 documented as of this encounter
--- OUTSIDE RECORDS SUMMARY | 2025-10-14 23:06 | XMS_ITS | Clinical Summary ---
Author Organization [facility], Address [address] [place] [phone] Phone Care Team Providers Care Register Repairer Name Role Phone Randal Pinon DO Primary Care Provider [phone] Allergies Active Allergy Reactions Criticality Noted Date [...] Date Dysuria 04/03/2022 11/13/2023 Hyperlipidemia 02/20/2018 07/24/2023 Encounters Date Type Department Care Team Description 08/14/2025 10:15 AM EDT Office Visit [facility] [address] [place] [phone] Kendrikc Argueta MD Stage 3b chronic kidney disease (HCC) (Primary Dx); Renal disorder due to type 2 diabetes mellitus <Other diabetic kidney complication> (HCC); Essential hypertension 08/10/2025 Documentation Only [facility] [place], [address] [place] [phone] Nissa Rodriguez from Last 3 Months Immunizations Immunization Administration Dates Next Due Influenza Split High [...] 66 11/14/2023 1:54 PM EST Temperature 36.7 C (98 F) 09/17/2019 12:00 PM EDT Respiratory Rate 14 [...] Visit [facility] Mallory Carroll [address] [address] [place] [phone] Kendrick Argueta MD [address] [place] [address] Health Maintenance Due Date Last Done Comments Pneumococcal Vaccine: 50+ Years (1 of 2 - PCV) 02/09/1954 Diabetes: Ophthalmology Exam 02/16/2020 Diabetes: Pedal Pulse Checked 02/16/2020 Diabetes: Sensory Foot Exam 02/16/2020 Diabetes: Visual Foot Exam 02/16/2020 Diabetes: Hemoglobin A1C 10/08/2024 07/08/2024, 04/0 07/2024 Influenza Vaccine (#1) 2025 2, 08/29/2021, 10/01/2020, Additional history exists Hepatitis B Vaccine Aged Out No longe r eligible based on patient's age to complete this topic Insurance Medicare [employer] Commercial Care Teams Register Repairer Relationship Specialty Start Date End Date Randal Pinon DO [address] [place] [address] PCP - General 09/30/19
--- OUTSIDE RECORDS SUMMARY | 2025-10-14 23:06 | XMS_ITS | Encounter Summary ---
Author Organization [facility] Address [address] [facility] [address] [place] [phone] Phone Care Team Providers Care Plant Operations Vice President Name Role Phone Randal Pinon DO Primary Care Provider [phone] Randal Pinon DO Primary Care Provider [phone] Encounter Details Date Type Department Care Team ([facility] st Contact Info) Description 02/25/2024 Transcribe Orders [facility] Phleb [address] [place] [address] Leigh Devine PA [address] [place] [address] [email or web address] Upper abdominal pain (Primary Dx) Social History Tobacco Use Types [...] Description 12/03/2025 10:00 AM EST Office Visit [facility] Diabetes [address] [address] Enedelia Duncan, [address] [facility], [address] [place] [address] 03/23/2026 11:00 AM EDT Nutrition [facility] Diabetes [address] [address] Candace Meyers LDN [address] [address] documented as of this encounter Results * GGT (Gamma glutamyl transferase) (02/25/2024 11:54 AM EDT) GGT 26 11 - 51 U/L [facility] Blood 02/25/2024 11:5 4 AM EDT 02/25/2024 11:57 AM EDT Leigh PINK LAB BLOOD BKR ORDERABLES Final Result [address] [address] * (ABNORMAL) Comprehensive metabolic panel (02/25/2024 11:54 AM EDT) SODIUM 135 133 - 146 mmol/L [facility] POTASSIUM 4.6 3.3 - 5.1 mmol/L [facility] CHLORIDE 98 96 - 108 mmol/L [facility] CO2 27 21 - 35 mmol/L [facility] BUN 63(H) 6 - 19 mg/dL [facility] CREATININE 1.80(H) 0.5 - 1.5 mg/dL [facility] GLUCOSE 301(H) 70 - 99 mg/dL [facility] ALBUMIN 3.8(L) 3.9 - 4.8 g/dL [facility] TOTAL PROTEIN 6.5 6.5 - 8.0 g/dL [facility] CALCIUM 9.1 8.4 - 10.3 mg/dL [facility] ALKALINE PHOSPHATASE 109 39 - 117 U/L [facility] TOTAL BILIRUBIN 0.5 0.0 - 1.2 mg/dL [facility] AST 17 0 - 37 U/L [facility] ALT 18 0 - 40 U/L [facility] GLOBULIN 2.7 1 - 4.8 g/dL [facility] EGFR 36(L) >59 mL/min/1.7 3m2 [facility] Comment:Estimated glomerular filtration rate calculated using the CKD-EPI refit equation. ANION GAP 15 10 - 20 mmol/L [facility] Blood 02/25/2024 11:5 4 AM EDT 02/25/2024 11:57 AM EDT Leigh PINK LAB BLOOD BKR ORDERABLES Final Result [facility] [address] [place], [place] [phone] * (ABNORMAL) CBC (02/25/2024 11:54 AM EDT) WBC 6.65 4.00 - 11.00 K/uL [facility] RBC 3.62(L) 3.90 - 5.69 M/uL [facility] HGB 10.3(L) 12.4 - 17.3 g/dL [facility] HCT 32.4(L) 37.0 - 51.0 % [facility] PLT 182 140 - 430 K/uL [facility] MCV 89.5 78.0 - 97.0 fL [facility] MCH 28.5 25.0 - 33.0 pg [facility] MCHC 31.8(L) 32.0 - 36.0 g/dL [facility] RDW 14.4 11.0 - 15.0 % [facility] MPV 9.7 8.4 - 12.8 [facility] Blood 02/25/2024 11:5 4 AM EDT 02/25/2024 11:57 AM EDT Leigh PINK LAB BLOOD BKR ORDERABLES Final Result [facility] [address] [place] [address] documented in this encounter Visit Diagnoses Diagnosis Upper abdominal pain- Primary documented in this encounter Care Teams Plant Operations Vice President Relationship Specialty Start Date End Date Randal Pinon DO PCP - General Internal Medicine 07/24/22 08/04/25 Randal Pinon DO [address] [place] [phone] PCP - General Internal Medicine 08/05/25 documented as of this encounter Additional Source Comments The information contained in this document represents components of the legal health record. It is not the complete legal health record.[facility]
--- OUTSIDE RECORDS SUMMARY | 2025-10-14 23:06 | XMS_ITS | Encounter Summary ---
Author Organization [facility] [place], Address [address] [place] [address] Phone Care Team Providers Care Lead Java Programmer Name Role Phone Randal Pinon DO Primary Care Provider [phone] Encounter Details Date Type Department Care Team (Late st Contact Info) Description 02/04/2025 Documentation Only [facility] [address] [place] [address] Nissa Rodriguez [address] [place] [phone] Social History Tobacco Use Types Packs/Day [...] Visit [facility] Shawna [address] [place] [phone] Kendrick Argueta MD [address] [place] [address] [place] [address] documented as of this encounter Visit Diagnoses Not on filedocumented in this encounter Care Teams Lead Java Programmer Relationship Specialty Start Date End Date Randal Pinon DO [address] [facility] [phone] PCP - General 09/30/19 documented as of this encounter
--- OUTSIDE RECORDS SUMMARY | 2025-10-14 23:06 | XMS_ITS | Encounter Summary ---
Author Organization [facility] [place], Address [address] [place] [address] Phone Care Team Providers Care Railroad Inspector Name Role Phone Randal Pinon DO Primary Care Provider [phone] Encounter Details Date Type Department Care Team (Late st Contact Info) Description 02/18/2021 Orders Only [facility] [place] [facility] [address] [facility] [address] [place] [phone] Millie Christiansen MD Chronic kidney disease stage [...] Visit [facility] [place], - [address] [place] [phone] Kendrick Argueta MD [address] [facility] [place] [phone] documented as of this encounter Visit Diagnoses Diagnosis Chronic kidney disease stage 3 (HCC) documented in this encounter Care Teams Railroad Inspector Relationship Specialty Start Date End Date Kathrin DO Randal [address] [facility] [place] [phone] PCP - General 09/30/19 documented as of this encounter
--- OUTSIDE RECORDS SUMMARY | 2025-10-14 23:06 | XMS_ITS | Data Portability ---
Author Organization [facility], Telehealth Patient Home Address [address] [place] [address] Assessment Encounter Date Assessment Date Assessment LastModified by Organization Details LastModified Time 01/02/2025 01/02/2025 [id number] [place] [id number] (EXECUTIVE ASST) : MDM LOW MUST MEET 2 OF [...] THE ELEMENTS COVERED Not available 01/02/2025 10:32:24 05/04/2025 05/04/2025 Patient presente d to office today for their Medicare Annual Wellness Visit. Education was provided on healthy nutrition, including a diet rich in fruits and vegetables, minimizing simple carbohydrates, salt, and saturated fats. Encouraged regular cardiovascular exercise such as walking at least 30 minutes daily, 5 times per week. Emphasized preventive health measures and educated pt on fall prevention and community-based lifestyle interventions to help reduce health risks and promote healthy living. Not available 04/22/2025 15:44:08 08/26/2025 08/26/2025 [id number] [place] [id number] (EXECUTIVE ASST) MDM MODERATE MUST MEET 2 OUT OF 3 [...] EACH ELEMENT THAT IS COVERED Not available 08/26/2025 15:12:12 09/25/2025 09/25/2025 [id number] [place] [id number] (EXECUTIVE ASST) MDM MODERATE MUST MEET 2 OUT OF 3 [...] EACH ELEMENT THAT IS COVERED Not available 09/25/2025 16:30:30 Plan of Treatment Reminders Order Date Submit Date Provider Last Modified By Organization Details Last Modified Time Details Appointments FOLLOW UP 15 2024 04:15P M DR ESTRADA Not available Not available Not available FOLLOW UP 15 2024 09:30A M DR ESTRADA Not available Not available Not available Lab hemoglobi n A1c, QN, blood 2024 025 [facility], [address], [place], [address], 01/05/2025 12:19:44 Referral None recorded. Procedures None recorded. Surgeries None recorded. Imaging MRI, brain, w/o contrast 2024 025 [facility] Central Scheduling (Not Breast), [address] [place], [address], 08/28/2025 08:41:16 Medication Orders terbinafi ne HCl 250 mg tablet 2024 025 [facility]0373, [address] [place], [address], 08/26/2025 15:05:26 ketoconaz ole 2 % topical cream 2024 025 [facility]acy #0373, [address] [place], [address], 01/02/2025 10:32:56 mirtazapi ne 30 mg tablet 2023 025 [facility]/Pharmacy #0373, [address] [place], [address], 08/26/2025 14:43:36 clotrimaz ole-betam ethasone 1 %-0.05 % topical cream 2023 024 [facility]/Ph[facility]acy #0373, [address] [place], [address], 09/24/2024 11:04:03 Patient TargetsNo targets recorded. Patient Instructions Encounter Date Encounter Id Patient Instructions Last Modified By Organization Details Last Modified Time 09/24/2024 [id number] learning about type 2 diabetes Not available 09/24/2024 11:04:00 type 2 diabetes: care instructions Not available 09/24/2024 11:03:59 high blood pressure: care instructions Not available 09/24/2024 11:03:59 learning about high blood pressure Not available 09/24/2024 11:04:00 ringworm: care instructions Not available 09/24/2024 11:04:00 05/04/2025 [id number] advance care planning: care instructions Not available 05/04/2025 12:28:16 Discussed and explained advance directives such as standard forms to the patient. Face to face discussion lasted for a duration of __25_ minutes. Not available 05/04/2025 14:02:00 09/25/2025 [id number] learning about type 2 diabetes Not available 09/25/2025 16:33:46 type 2 diabetes: care instructions Not available 09/25/2025 16:33:46 Reason for Referral None Reported. Results Created Date Observation Date Name Description Value Unit Range Abnormal Flag Note LastModifiedBy Organization Detail LastModifiedTime 09/29/2009/27/2025 MRI, brain , w/o contr ast No observ ation record ed. [email or web address] [address], [place], [address], 10/05/2025 08:55:03 Result Notes None recorded. Problems Name Problem SNOMED Code Status Onset Date Resolution Date Notes Provider Name and Address Organization Details Recorded Time Type 2 diabetes mellitus 67976319 Active 2017 Randal Estrada DO [address] [place] [address], [address], [facility] 5 15:15:25 Neuropath y due to diabetes mellitus 486714686 Active 2017 Not Available [facility] 3 16:04:36 Essential hypertens ion 68160863 Active 2017 Not Available [facility] 3 16:04:36 Hyperchol esterolem ia 07336781 Active 2017 Not Available [facility] 3 16:04:35 Chronic kidney disease 830933348 Active 2017 Stage 3 Not Available [facility] 3 16:04:36 Melena 7997116 Active 2021 Not Available [facility] 3 16:04:36 Dysuria 65428526 Active 2021 Not Available [facility] 3 16:04:36 Chronic kidney disease stage 3 310451722 Active 2022 Not Available [facility] 3 16:04:36 Cholecyst itis 88720694 Active 2023 APRYL SPRAGUE [address] [place], [address], [facility] 4 11:59:49 Gastritis 9701651 Active 2023 APRYL SPRAGUE [address] [place] [address], [address], [facility] 4 12:04:13 Diarrhea 91714301 Active 2023 APRYL SPRAGUE [address] [place] [address], [address], [facility] 4 13:44:52 Depressiv e disorder 12010007 Active 2023 Randal Estrada, DO [address] [place] [address], [address], [facility] 4 10:36:59 Dupuytren 's contractu re of finger 486488576 Active 2023 Randal Estrada DO [address] [place] [address], [address], [facility] 4 11:05:22 Dermatoph ytosis 42470748 Active 2023 Randal Estrada DO [address] [place] [address], [address], [facility] 4 11:02:32 Osteoarth ritis of right knee joint 954273489365 100 Active 2024 Randal Estrada DO [address] [place] [address], [address], [facility] 5 10:34:03 Onychomyc osis of toenails 106903627 Active 2024 Randal Estrada DO [address] [place] [address], [address], [facility] 5 12:27:18 Disorient ated 30847860 Active 2024 Randal Estrada DO [address] [place] [address], [address], [facility] 5 15:16:40 Confusion al state 082778034 Active 2024 Randal Estrada, DO [address] [place], [address], [facility] 5 16:31:31 Keshav henriquez 369434375 Active 2024 Randal Estrada, DO [address] [place], [address], [facility] 5 13:36:11 Notes:Some problems listed i n Documents: #[id number], #[id number], #[id number], #[id number], #[id number], #[id number], #[id number], #[id number], #[id number] could not be added to this patient's [...] n cough Not available Not available 02/20/2018 62279 RxNorm [facility] 8 13:34:23 9838 loratadin e medicatio n other Not available Not available 10/14/20252019 12659 RxNorm Not Available [place] - External Data Service - prod 5 14:41:44 Medications Name Sig Start Date Stop Date [...] TAKE 1 TABLET BY MOUTH EVERY DAY 09/25 completed Not Available Not Available Not Available Accu-Chek Softclix Lancets USE 1 LANCET TO CHECK BLOOD SUGARS 3 (THREE) TIMES A DAY BEFORE MEALS. E11.22 Z79.4 active Not Available Not Available No t [...] Not Available Not Available No t Available terbinafin e HCl 250 mg tablet TAKE 1 TABLET BY MOUTH EVERY DAY 08/26 completed Not Available Not Available Not Available meclizine 25 mg tablet TAKE 0.5 [...] TABLET BY MOUTH EVERY DAY AT BEDTIME 08/26 completed Not Available Not Available Not Available clotrimazo le-betamet hasone 1 %-0.05 % [...] BY MOUTH EVERY DAY FOR 30 DAYS 08/26 completed Not Available Not Available Not Available metoprolol succinate ER 25 mg tablet,ext ended [...] aspart 100 unit/mL (3 mL) subcutaneo us INJECT 4 UNITS JUST BEFORE BREAKFAS T AND 6 UNITS BEFORE SUPPER. DO NOT TAKE IF YOU ARE NOT EATING. active Not Available Not Available No t Available [employer] Flash System kit active Not Available Not Available N ot Available mirtazapin e 7.5 mg tablet TAKE 1 TABLET BY MOUTH EVERY DAY FOR 30 DAYS 04/28 completed Not Available Not Available Not Available chlorhexid ine gluconate 0.12 % mouthwash [...] Not Available Not Available Not Available Jardiance 10 mg tablet TAKE 1 TABLET BY MOUTH EVERY DAY 09/25 completed Not Available Not Available Not Available Jardiance 25 mg tablet Take 1 tablet every day by oral route for 90 days. 09/25 completed Not Available Not Available Not Available Trulicity 1.5 mg/0.5 mL subcutaneo us pen injector Inject 0.5 mL every week by subcutan eous route for 90 days. 08/04 completed has lost too much weight Not Available Not Available Not Available Trulicity 0.75 mg/0.5 mL subcutaneo us pen injector INJECT 0.75MG SUBCUTAN EOUSLY ONE TIME PER WEEK active Not Available Not Available No t Available Vitamin B12 1000mg once a day 06/20 completed Not Available Not Available Not Available Clare Chen U-100 Insulin 100 unit/mL (3 mL) subcutaneo us INJECT 8 UNITS UNDER THE SKIN NIGHTLY AT BEDTIME. active Not Available Not Available No t Available Accu-Chek Guide test strips USE 1 STRIP 3 TIMES A DAY BEFORE MEALS. active Not Available Not Available No t Available Accu-Chek Guide Glucose Meter BY MISCELLA NEOUS ROUTE 3 (THREE) TIMES A DAY BEFORE MEALS. E11.22 Z79.4 active Not Available Not Available No t Available BD Princess 2nd Gen Pen Needle 32 gauge x 5/32 USE 2 TIMES A DAY BEFORE MEALS active Not Available Not Available No t Available FreeStyle Gilberto 2 Sensor kit use 1 sensor every 14 days 2021 active Not Available Not Available Not Avai lable FreeStyle Gilberto 2 [place] Use as directed . 2021 active Not Available Not Available Not Avai lable Fluzone High-Dose Quad 202021 (PF) 240 mcg/0.7 mL IM syringe PHARMACY ADMINIST EREFitz 03/09 completed Not Available Not Available Not Available insulin glargine-y fgn (U-100) 100 unit/mL (3 mL) subcutaneo us pen INJECT 8 UNITS UNDER THE SKIN DAILY. E11.22 active Not Available Not Available No t Available Ultra-Fine Pen Needle 31 gauge x 3/16 USE ONE 3 TIMES A DAY active Not Available Not Available No t Available Vitals Date Recorded Body height Body mass index (BMI) Body weight Heart rate Oxygen saturation Oxygen saturation in Arterial blood by Pulse oximetry Systolic And Diastolic Provider Name and Address Organization Details Last Updated DateTime 5 170.18 cm 27.7 kg/m2 61988.8 5 g 78 /min 98 % 98 % 140/80 mm[Hg] Isis Bradley [facility] 5 09:53:21 Date Recorded Body height Body mass index (BMI) Body weight Heart rate Oxygen saturation Oxygen saturation in Arterial blood by Pulse oximetry Systolic And Diastolic Provider Name and Address Organization Details Last Updated DateTime 5 170.18 cm 28.6 kg/m2 82447.0 4 g 71 /min 97 % 97 % 126/72 mm[Hg] GAIL CEDILLO [facility] 5 11:49:23 Date Recorded Body height Body mass index (BMI) Body weight Heart rate Oxygen saturation Oxygen saturation in Arterial blood by Pulse oximetry Systolic And Diastolic Provider Name and Address Organization Details Last Updated DateTime 5 170.18 cm 27.4 kg/m2 37580.6 6 g 62 /min 98 % 98 % 128/84 mm[Hg] Ingrid Holden [facility] 5 14:45:30 Date Recorded Body height Body mass index (BMI) Body weight Heart rate Oxygen saturation Oxygen saturation in Arterial blood by Pulse oximetry Systolic And Diastolic Provider Name and Address Organization Details Last Updated DateTime 4 170.18 cm 27.8 kg/m2 05025 g 84 /min 99 % 99 % 134/70 mm[Hg] Hay Neville [facility] 4 10:39:01 Date Recorded Body height Body mass index (BMI) Body weight Oxygen saturation Oxygen saturation in Arterial blood by Pulse oximetry Heart rate Systolic And Diastolic Provider Name and Address Organization Details Last Updated DateTime 5 170.18 cm 27.8 kg/m2 73029.7 2 g 94 % 94 % 62 /min 124/70 mm[Hg] GAIL MAMADOU [facility] 5 16:13:43 Social History Question Answer Notes LastModified by Organizat ion Details LastModified Time Tobacco Smoking Status Former Smoker Not Available [facility] 09/28/2020 03:36:24 What Was The Date Of Your Most Recent Tobacco Screening? 09/25/2025 Information not available 09/25/2025 How Many Years Have You Smoked Tobacco? 50 [id number] Information not available 09/28/2020 Sex: Unknown Functional Status Question Answer Note LastModified by Organization D etails LastModified Time Do you or have you ever used any other forms of tobacco or nicotine? No [email or web address] Information not available 08/20/2023 Mental Status None [...] Time zoster recombinant 5 completed Not Available [facility] 08/06/2023 16:05:00 Influenza, split virus, quadrivalent, preservative 8 completed Not Available [facility] 08/06/2023 16:05:00 COVID-19, mRNA, LNP-S, PF, 30 mcg/0.3 mL dose 1 completed Not Available [facility] 08/06/2023 16:05:00 Influenza, split virus, quadrivalent, preservative 1 completed Not Available [facility] 08/06/2023 16:05:00 COVID-19, mRNA, LNP-S, PF, 30 mcg/0.3 mL dose 2 completed Not Available [facility] 08/06/2023 16:05:00 influenza, unspecified formulation 2 completed Not Available [facility] 08/06/2023 16:05:00 zoster, unspecified formulation 4 completed Randal Estrada, DO [address] [place], [address], [facility] 05/11/2024 08:53:32 influenza, unspecified formulation 5 completed GAIL ag, [facility] 08/28/2025 13:20:35 Influenza, split virus, quadrivalent, preservative 9 completed Not Available [facility] 08/06/2023 16:05:00 Influenza, split virus, quadrivalent, preservative 0 completed Not Available [facility] 08/06/2023 16:05:00 COVID-19, mRNA, LNP-S, PF, 30 mcg/0.3 mL dose 1 completed Not Available [facility] 08/06/2023 16:05:00 COVID-19, mRNA, LNP-S, PF, 30 mcg/0.3 mL dose 1 completed Not Available [facility] 08/06/2023 16:05:00 Past Encounters Encounter ID Performer Location Encounter Start Date Encounter Closed Date Diagnosis/Indication Diagnosis SNOMED-CT Code Diagnosis ICD10 Code Diagnosis IMO Codes Diagnosis Note [id number] February JB Mullen [facility] [address],[place] [address] 02/25/2018 10:16:02 02/25/2018 11:34:02 Type 2 diabetes mellitus 20590042 E11.40 E11.3293 exercise more- pt plans to walk more- this is encouraged better diet control continue januvia & glipizide consider restarting metformin in future continue daily fbs monitoring continue q9week toenail maintenanc e Benign ess ential hypertension 1473503 I10 stable, continue metoprolol daily, as well as baby asa Hyperlipidemia 07797056 E78.2 overdue for labs- will order for next visit Chronic ki dney disease stage 3 269305439 N18.3 will monitor cmp. continue care with dr. christiansen. reinforced kidney health diet. praised for increase intake of fish over mammalian sources. [id number] DO [facility] [address]ie [address] [facility] [address] 05/27/2018 08:54:43 05/27/2018 09:41:01 Type 2 diabetes mellitus 09383453 E11.3293 E11.40 pt reluctant to start new [...] metformin increase exercise Benign ess ential hypertension 8113299 I10 stable, continue metoprolol daily, as well as baby asa Hyperlipidemia 22029363 E78.2 LDL not quite at goal - diet and exercise recommende d Chronic ki dney disease stage 3 568103088 N18.3 will monitor cmp. continue care with dr. christiansen. reinforced kidney health diet. praised for increase intake of fish over mammalian sources. no improvemen t with d/c of metformin [id number] DO [facility] [address],[place] [address] 10/08/2018 09:31:32 10/08/2018 10:40:01 Type 2 diabetes mellitus 27078213 E11.3293 E11.40 a1c worse at 8.8, up [...] metformin increase exercise Benign ess ential hypertension 4637173 I10 stable, continue metoprolol daily, as well as baby asa Hyperlipidemia 83794768 E78.2 LDL worse will increase lovastatin Chronic ki dney disease stage 3 558538689 N18.3 will monitor cmp. continue care with dr. christiansen. reinforced kidney health diet. praised for increase intake of fish over mammalian sources. no improvemen t since d/c of metformin Body mass index 25-29 - overweight 521995212 Z68.29 working on eating a healthier diet now. [id number] Randal Estrada [facility] [address],[place] [address] 12/31/2018 09:05:34 12/31/2018 10:11:48 Type 2 diabetes mellitus 20895929 E11.3293 E11.40 a1c improved from 8.8 to [...] goal of <7 Benign ess ential hypertension 0322100 I10 well-contr olled, continue metoprolol daily, as well as baby asa Hyperlipidemia 44286598 E78.2 cholestero l panel improved LDL still not quite at goal with LDL of 101 but down from 140 Chronic ki dney disease stage 3 505107193 N18.3 will monitor cmp. continue care with dr. christiansen. reinforced kidney health diet. praised for increase intake of fish over mammalian sources. no improvemen t since d/c of metformin Body mass index 25-29 - overweight 165990132 Z68.29 working on eating a healthier diet now [id number] Randal Estrada [facility] [address],[place] [address] 06/20/2019 10:34:21 06/20/2019 11:57:48 Type 2 diabetes mellitus 67389855 E11.22 actually heading in the right direction and hgb down from 9.5 and down to 8 cont good diet and glipizide and januvia Essential hypertension 86282584 I10 here for chk and is doing ok and is tolerating med without issue Active or passive immunization 930376654 Z23 needs tdap as last vaccine will send to pharm Chronic ki dney disease 952999142 N18.9 seems stable and no change in his meds Neuropathy due to diabetes mellitus 251029859 E11.49 ongoing neuropathy but is self limited [id number] Randal Estrada, [facility] [address] [facility] [address] [place] V [facility]UN[facility] [place] [address] 10/31/2019 08:57:37 10/31/2019 09:18:49 Essential hypertension 28671938 I10 here for chk and is doing ok and is tolerating med without issue Type 2 damaris betes mellitus 03215769 E11.22 actually heading in the right direction and hgb down from 9.5 and down to 8 cont good diet and glipizide and januvia Chronic ki dney disease 988094640 N18.9 seems stable and no change in his meds follows with dr christiansen and all has been ok [facility] Neuropathy due to diabetes mellitus 492445627 E11.49 ongoing neuropathy but is self limited [id number] Randal Estrada [facility] [address] [facility] [address] [place] [address] 01/30/2020 09:03:51 01/30/2020 09:52:06 Type 2 diabetes mellitus 17448474 E11.22 A1c is 9.4, was 8 (but that was when he switched from glipizide to glimepirid e) states that his sugar is much better now that he has switched back cont good diet and glipizide and januvia staying active, walks with will have labs redo at the end of this month Essential hypertension 44014563 I10 BP is stable on the metoprolol 130/70 (01/30/20) Chronic ki dney disease 288371202 N18.[address] Christiansen again during the first week of February for f/u appt. will get blood work done at end of January to bring to him [id number] Randal Estrada [facility] [address] [facility] [place] [address] [facility] [address] 03/12/2020 11:41:20 03/12/2020 12:22:20 Hypercholesterolemia 42298688 E78.00 will be checking in a few months Type 2 damaris betes mellitus 16158334 E11.22 A1c is 9.3 and was 9.4, was 8 (but now he switched back from glipizide to glimepirid e and states that his sugar is much better now that he has switched back cont good diet and glipizide and januvia staying active, walks with will have labs redo at the end of this month Essential hypertension 59339762 I10 BP is stable on the metoprolol 130/70 (01/30/20) [id number] Randal Estrada [facility] [address] [facility],[place] [address] 05/24/2020 10:26:33 05/24/2020 11:10:22 Type 2 diabetes mellitus 00715968 E11.22 A1C was 9.3 is now 8.6 [...] the end of this month Essential hypertension 68727437 I10 BP is stable on the metoprolol Chronic ki dney disease 783064912 N18.[address] Christiansen next mo Ganglion c yst of left hand 0320420337 07446 M67.442 L 1st digit palmar Will monitor and refer if locking or painful [id number] Randal Estrada DO [facility] [address] [facility] [address],[place] [address] 11/23/2020 08:40:27 11/23/2020 15:44:08 Type 2 diabetes mellitus 41028095 E11.22 A1C was in jul 9.5 due [...] much due to the cold Essential hypertension 37076915 I10 BP is stable on the metoprolol Chronic ki dney disease 475795794 N18.[address] Christiansen next mo Neuropathy due to diabetes mellitus 824852690 E11.49 ongoing neuropathy but is self limited and has not worsened Hypercholesterolemia 136 57911 E78.00 will be checking in a few months Primary er ectile dysfunction 806700127 N52.9 [id number] Randal Estrada [facility] [address] [facility] [place] [facility] [place] [address] 03/09/2021 10:46:48 03/09/2021 11:27:21 Essential hypertension 51432101 I10 BP is stable on the metoprolol Type 2 damaris betes mellitus 76118263 E11.22 A1C was in jul 9.5 due [...] much due to the cold Hypercholesterolemia 136 55683 E78.00 will be checking in a few months [id number] Randal Estrada [facility] [address] [facility] [address],[place] [address] 06/22/2021 10:44:36 06/22/2021 11:33:49 Type 2 diabetes mellitus 50936025 E11.22 A1C was 7.4 today and was [...] much due to the cold Essential hypertension 21258920 I10 BP is stable on the metoprolol Chronic ki dney disease stage 3 056598453 N18.30 stable and is followed by renal although his numbers are about the same [id number] Randal Estrada DO [facility] [address] [facility],[place] [address] 10/17/2021 11:12:08 10/17/2021 11:41:11 Type 2 diabetes mellitus 19141630 E11.22 A1C was 7.4 today and was [...] much due to the cold Hypercholesterolemia 136 86172 E78.00 will be checking in a few months but we feels he is doing good Essential hypertension 89104799 I10 BP is stable on the metoprolol cont current meds Type 2 damaris betes mellitus without complication 468213476 E11.9 a1c is 7.8 and doing oktrying not to eat too much [id number] Randal Estrada DO [facility] [address] [facility],[place] [facility] [address] 01/30/2022 11:16:50 01/30/2022 15:15:57 Type 2 diabetes mellitus 75102022 E11.22 A1C was8.5 and in september was [...] much due to the cold Essential hypertension 59902254 I10 BP is stable on the metoprolol cont current meds Type 2 damaris betes mellitus without complication 058971507 E11.9 a1c is 7.8 and doing oktrying not to eat too much Chronic ki dney disease stage 3 [id number] N18.30 stable and is followed by renal although his numbers are about the same Neuropathy due to diabetes mellitus 808239663 E11.49 ongoing neuropathy but is self limited and has not worsened Hypercholesterolemia 136 69107 E78.00 will be checking in a few months but we feels he is doing good Candidiasis of skin 4988 3006 B37.2 51091 Randal Estrada [facility] [address] [facility],[place] [employer] [place] [address] 05/17/2022 10:50:14 05/17/2022 11:48:20 Depression screening [id number] Z13.31 stable and negative Active or passive immunization 321522226 Z23 needs tdap as last vaccine will send to pharm Adult [facility] th examination 459514562 Z00.01 long detailed discussion with present explaining the need to eat right he is eating all carbs and sweets and is not following a good dieti explained how this is hurting him etche will try to be better and we wilkl hold off on using insulin etc we will have him try to get [place] [address] Randal Estrada DO [facility] Internal [facility] [address] [facility],[employer] [place] [address] 06/23/2022 14:32:22 06/26/2022 08:42:21 Type 2 diabetes mellitus 50315676 E11.22 placed freestyle gilberto, upper left armpatient [place] [id number] Randal Estrada DO [facility] Internal [facility] [address] [facility],[employer] [facility] [place] [address] 08/04/2022 14:11:26 08/04/2022 14:25:16 Type 2 diabetes mellitus 37955541 E11.22 A1C was 8.5 and in september [...] to the cold Chronic ki dney disease 753831799 N18.[address] Christiansen next mo Essential hypertension 79956081 I10 BP is stable on the metoprolol cont current meds 65995 Randal Estrada [facility] [address] [facility], [place] [address] 11/10/2022 09:44:48 11/10/2022 14:41:44 Essential hypertension 82657656 I10 BP is stable on the metoprolol cont current meds Type 2 damaris betes mellitus 50753544 E11.22 A1C is pending Continue to work on diet and will keep walking daily PRIOR: last year cont good diet and trulicity and januvia staying active, walks with but not as much due to the cold Melena 9458912 K92.1 no evidnce of bleeding no evid of melena Chronic ki dney disease 640927332 N18.9 stable has had some lab earlier this [place] [id number] Randal Estrada [facility] [address] [facility],[place] [address] 01/05/2023 09:18:59 01/05/2023 09:52:37 Type 2 diabetes mellitus 25974082 E11.22 A1C is pending Continue to work on diet and will keep walking daily PRIOR: last year cont good diet and trulicity and januvia staying active, walks with but not as much due to the cold Hypercholesterolemia 136 07809 E78.00 will be checking in a few months but we feels he is doing good Type 2 damaris betes mellitus without complication 204356595 E11.9 a1c is up to 9.7 this with januvia and trulicity we will try to change the januvia to jardiancet rying not to eat too much Chronic ki dney disease stage 3 434757712 N18.30 stable and is followed by renal although his numbers are about the same Chronic ki dney disease 749489108 N18.9 stable has had some lab earlier this year seeing Dr. 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 A1C is pending Continue to work on diet and will keep walking daily through endocrinol ogyno major issues except he is followed by endocrinst khanh active, walks with but not as much due to the weather 581800 Randal Estrada [facility] [address] [facility],[place] [address] 11/07/2023 11:36:08 11/07/2023 12:23:54 Essential hypertension 29036187 I10 BP is stable on the metoprolol cont current meds Hypercholesterolemia 136 30073 E78.00 will be checking in a few months but we feels he is doing good Type 2 damaris betes mellitus 87872842 E11.22 A1C is 8.7 Continue to work on diet and will keep walking daily through endocrinol ogyno major issues except he is followed by endocrinst khanh larios, walks with but not as much due to the weather Chronic ki dney disease 071659294 N18.9 stable has had some lab earlier this year seeing Dr. 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 010388638 E11.9 a1c was up to 9.7 now down to 8.7 on jardiance and trulicityt rying not to eat too much but admits to eating things she shouldnt at times 735804 Randal Estrada [facility] [address] [facility],[place] [employer] [facility] [place] [address] 02/05/2024 11:43:52 02/05/2024 15:49:20 Cholecystitis 19330043 K80.47 currently on prilosec 40 mg for the next 30 dayscurren tly on sucralfate 1 g for the next 30 days Gastritis 3160843 K29.60 will set up [id number] Randal Estrada [facility] [address] [facility], [place] [address] 03/17/2024 10:04:01 03/17/2024 11:30:46 Chronic kidney disease 112275204 N18.9 stable has had some lab earlier this year seeing Dr. 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 358624542 E11.9 a1c was up to 9.7 now down to 9.3 was 8.7 on jardiance and trulicityt rying not to eat too much but admits to eating things she shouldnt at times Type 2 damaris betes mellitus 27095572 E11.22 A1C is 8.7 Continue to work on diet and will keep walking daily through endocrinol richie major issues except he is followed by endocrinst khanh larios, walks with but not as much due to the weather Hypercholesterolemia 136 36217 E78.00 will be checking in a few months but we feels he is doing good Cholecystitis 72476879 K 80.47 Depressive disorder 4050 9022 F32.A [id number] Randal Estrada [facility] [address] [facility] [place] [place] [facility] [place] [address] 04/28/2024 15:15:27 04/28/2024 16:09:08 Depression screening 760558573 Z13.31 stable Depressive disorder 7659 6687 F32.A will increase the dose [id number] Randal Jose Luis Estrada [facility] [address] [facility] on [address] [place] itn[place] [place] [address] 05/28/2024 10:36:07 05/28/2024 11:23:55 Essential hypertension 67841267 I10 BP is stable on the metoprolol cont current meds Chronic ki dney disease 694034917 N18.9 stable has had some lab earlier this year seeing Dr. lopes next mo Type 2 damaris betes mellitus 58730248 E11.22 A1C was 8.7 last visit a1c now is pending Continue to work on diet and will keep walking daily through endocrinol ogyno major issues except he is followed by endocrinst khanh active, walks with but not as much due to the weather Dupuytren' s contracture of finger 519485075 M72.0 Depressive disorder 3548 9007 F32.A will increase the dose 586263 Randal Estrada [facility] [address] [facility],[place] it[place] [facility] [place] [address] 09/24/2024 10:31:31 09/24/2024 11:22:37 Chronic kidney disease 966442836 N18.9 stable has had some lab earlier this year seeing Dr. lopes next mo Essential hypertension 51900797 I10 BP is stable on the metoprolol cont current meds Type 2 damaris betes mellitus 46567065 E11.22 A1C was 8.7 last visit a1c now is pending Continue to work on diet and will keep walking daily through endocrinol ogyno major issues except he is followed by endocrinst khanh active, walks with but not as much due to the weather Dermatophytosis 68732986 B35.9 Depressive disorder 3542 9007 F32.A will increase the dose 786391 Randal Jose Luis Estrada [facility] [address] 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 3 Osteoarthr itis of right knee joint 3678842129 07134 M17.11 sherine is well paola [id number] Randal Estrada [facility] [address] [facility] on [place], [place] 7 05/04/2025 11:33:25 05/04/2025 13:46:06 Screening for cardiovascular system disease 802133204 Z13.6 long detailed discussion with present explaining the need to eat right he is eating all carbs and sweets and is not following a good diet Essential hypertension 39870984 I10 BP is stable on the metoprolol cont current meds Hypercholesterolemia 136 69452 E78.00 will be checking in a few months but we feels he is doing good Type 2 damaris betes mellitus 34795548 E11.22 A1C was 8.7 last visit a1c now is pending Continue to work on diet and will keep walking daily through endocrinol ogyno major issues except he is followed by endocrinst khanh larios, walks with but not as much due to the weather General ex amination of patient 365307272 Z00.01 28973627 eating better and diet is good a1c is 7.5 Onychomyco sis of toenails 265130619 B35.1 2023776 [id number] Randal Estrada [facility] [address] [facility],[place], [place] 7 08/26/2025 14:33:32 08/26/2025 16:37:28 Depression screening 062200820 Z13.31 stable Essential hypertension 31982882 I10 BP is stable on the metoprolol cont current meds Type 2 damaris betes mellitus 27677919 E11.22 A1C is 7.1 was 8.7 last visit a1c now is pending Continue to work on diet and will keep walking daily through endocrinol ogyno major issues except he is followed by endocrinst khanh larios, walks with but not as much due to the weather Disorientated 16158018 R 41.0 404906 noted to be having signif difficulty [id number] Randal Estrada [facility] [address] [facility] [place], [place] 7 09/25/2025 15:56:22 09/28/2025 08:47:40 Depression screening 676643039 Z13.31 stable Essential hypertension 27824175 I10 BP is stable on the metoprolol cont current meds Type 2 damaris betes mellitus 53029028 E11.22 A1C is 7.1 off jardiance Continue to work on diet and will keep walking daily through endocrinol ogyno major issues except he is followed by endocrinst khanh larios, walks with but not as much due to the weather Confusional state 621506 003 R41.0 87945 stopping the jardiance did not help bp are low normal and will have him wean off beta allen to see if some of the confusion gets better rechk in a couple weeks Health Concerns Section Related Observation LastModified by Organization Detai ls LastModified Time None Recorded Concern Status LastModified by Organization Details LastModified Time None Recorded Advance Directives Directive None Recorded Payers Insurance Date Sequence Insurance Name Policy Number Policy Adams Covered Member ID Adams Member ID Guarantor Name 09/22/2025 1 [place] [employer] Max Rodriguez [id number] Max Rodriguez 09/28/2025 2 [employer] - [employer] BENEFIT PLAN (PPO) [id number] Max Rodriguez [id number] 1 Max Rodriguez Notes Date Note Type Note Provider Name and Address Organization Details Recorded Time 09/24/20 24 text/htm l Care Management - HypertensionReported by Patient Care Management - DiabetesReported by PatientHPIFor self care, patient reportsseeing eye doctor yearly for dilated eye exam,checking feet regularly,normal range of home blood sugars (in the low 100s), andno side effects from medications. For associated symptoms, patient reportssymptoms are usually well controlled,no fatigue,no dizziness,no excessive sweating,no headaches,no confusion,no increased thirst,no increased appetite,no increased urination,no blurred vision,no numbness of feet, andno calluses on feet.ROS as noted in the HPI relates that heis doin g good no cp no sobsleeps and eats well denies any major prob except has a spot on tip of penis he wants evalmood is so so at times can be mayer \ has been doing a lot of cheating with hsi diet and eating a lot oc jelly beans and cookies Randal Estrada, DO [address] [place], [address], [facility] 09/24/2024 11:05:06 01/02/20 25 text/htm l Care Management - HypertensionReported by PatientHPIFor self care, patient reportsnot under emotional stress. For severity, patient reportssymptoms are improvinganddoes not interfere with daily activities. For associated symptoms, patient reportsno dizziness,no lightheadedness,no chest pain,no shortness of breath,no palpitations,no edema,no calf muscle cramps,no blurred vision,no confusion,no headaches, andno fatigue. Care Management - DiabetesReported by PatientHPIFor self care, patient reportsseeing eye doctor yearly for dilated eye exam,checking feet regularly,normal range of home blood sugars (in the low 100s), andno side effects from medications. For associated symptoms, patient reportssymptoms are usually well controlled,no fatigue,no dizziness,no excessive sweating,no headaches,no confusion,no increased thirst,no increased appetite,no increased urination,no blurred vision,no numbness of feet, andno calluses on feet.due for A1C, orderedROS as noted in the HPI Randal Estrada, [address] [place], [address], [facility] 01/02/2025 10:34:40 05/04/20 25 text/htm l Care Management - DiabetesReported by PatientHPIFor self care, patient reportsseeing eye doctor yearly for dilated eye exam,checking feet regularly,normal range of home blood sugars (in the low 100s), andno side effects from medications. For associated symptoms, patient reportssymptoms are usually well controlled,no fatigue,no dizziness,no excessive sweating,no headaches,no confusion,no increased thirst,no increased appetite,no increased urination,no blurred vision,no numbness of feet, andno calluses on feet. Care Management - HypertensionReported by PatientHPIFor self care, patient reportsnot under emotional stress. For severity, patient reportssymptoms are improvinganddoes not interfere with daily activities. For associated symptoms, patient reportsno dizziness,no lightheadedness,no chest pain,no shortness of breath,no palpitations,no edema,no calf muscle cramps,no blurred vision,no confusion,no headaches, andno fatigue. Care Management - HyperlipidemiaReported by PatientHPIFor control, patient reportsusually well controlled,improving, andat goal. For complications, patient reportsno coronary artery disease,no heart attack,no cardiovascular disease,no pancreatitis, andno stroke. Medicare Annual Wellness VisitReported by PatientSocial/Behavioral HistoryFor diet and nutrition, patient reportshealthy diet. For fracture risk, patient reportsno history of fractures,no recent explained fracture,no sudden unexplained fractures, andno previous musculoskeletal injuries. For physical activity, patient reportsexercises on a regular basis,recent increase in physical activity, andgood physical condition.Mental Status:For depression risk, patient reportsnever feels sad, empty, or tearful,no loss of interest in activities,no significant changes in weight,no sleep disturbances or insomnia,no agitation,no loss of energy,no feelings of worthlessness or guilt,no thoughts of suicide,no history of depression, andno history of mood disorders. For orientation, patient reportsno disorientation to time,no disorientation to date, andno disorientation to place. For concentration and memory, patient reportsno decreased concentrating ability,no memory lapses or loss, anddoes not forget words. For speech/motor difficulties, patient reportsno speech difficulties,no difficulty expressing formulated concepts,no difficulty with fine manipulative tasks,no difficulty writing/copying,no slowed reaction time, anddoes not knock things over when trying to pick them up.Functional AbilityFor hearing, patient reportsno loss of hearing. For vision, patient reportsno vision problems. For activities of daily living, patient reportsable to bathe with limited or no assistance,able to contol urination and bowels,able to dress with limited or no assistance,able to feed self with limited or no assistance,able to get out of chair or bed with limited or no assistance,able to groom with limited or no assistance, andable to toilet with limited or no assistance. For instrumental activities of daily living, patient reportsable to do house work with limited or no assistance,able to grocery shop with limited or no assistance,able to manage medications with limited or no assistance,able to manage money with limited or no assistance,able to prepare meals with limited or no assistance, andable to use the phone with limited or no assistance. For falls risk assessment, patient reportsno frequent falls while walking,no fall in the past year,no fall since last visit, andno dizziness/vertigo. For home safety, patient reportsno unsafe roro hazzards,no unsafe stairs,no unsafe gas appliances,working smoke/co detectors,wears protective head gear for biking/high velocity,use of seatbelts,practicing 'safer sex',no vision or hearing loss while driving,no fire arms,has hand bars in the bathroom/shower, andgood lighting in the home.ROS as noted in the HPI here for mwv doing well overall no major issuesno cp no sobappetite and sleep are goodbowels are good bladder only up once or twice at most Randal Estrada DO [address] [facility], [place], [address], [facility] 05/04/2025 13:43:48 08/26/20 25 text/htm l Care Management - HypertensionReported by PatientHPIFor self care, patient reportsnot under emotional stress. For severity, patient reportssymptoms are improvinganddoes not interfere with daily activities. For associated symptoms, patient reportsno dizziness,no lightheadedness,no chest pain,no shortness of breath,no palpitations,no edema,no calf muscle cramps,no blurred vision,no confusion,no headaches, andno fatigue. Care Management - DiabetesReported by PatientHPIFor self care, patient reportsseeing eye doctor yearly for dilated eye exam,checking feet regularly,normal range of home blood sugars (in the low 100s), andno side effects from medications. For associated symptoms, patient reportssymptoms are usually well controlled,no fatigue,no dizziness,no excessive sweating,no headaches,no confusion,no increased thirst,no increased appetite,no increased urination,no blurred vision,no numbness of feet, andno calluses on feet.ROS as noted in the HPI here per that he has been having an issue now getting lost at night and relates he has gotten confusedshort term memory not good but is still remembering to do bills etchlotus no longer watching the ipadnot reading Randal Estrada DO [address] [facility], [place], [address], [facility] 08/26/2025 15:18:43 09/25/20 25 text/htm l ROS as noted in the HPI here for rechk he is still fatigued and not motivated confusion is still presentand relates worse at nightnot hungry at times Randal Estrada DO [address] [facility], [place], [address], [facility] 09/25/2025 16:34:08
--- OUTSIDE RECORDS SUMMARY | 2025-10-14 23:07 | XMS_ITS | Encounter Summary ---
Author Organization [facility], Address [address] [place] [address] Phone Care Team Providers Care Facility Specialist Name Role Phone Randal Pinon DO Primary Care Provider [phone] Encounter Details Date Type Department Care Team (Late st Contact Info) Description 02/11/2021 Orders Only [facility] - [facility] [address] [facility] [address] [place] [address] Millie Christiansen MD Chronic kidney disease stage [...] Visit [facility] [address] [place] [address] Kendrick Argueta MD [address] [place] [address] [place] [phone] documented as of this encounter Visit Diagnoses Diagnosis Chronic kidney disease stage 3 (HCC) Anemia in chronic kidney disease Essential hypertension documented in this encounter Care Teams Facility Specialist Relationship Specialty Start Date End Date Randal Pinon DO [address] [facility] [address] PCP - General 09/30/19 documented as of this encounter
--- OUTSIDE RECORDS SUMMARY | 2025-10-14 23:07 | XMS_ITS | Encounter Summary ---
Author Organization [facility], Address [address] [place] [address] Phone Care Team Providers Care Picked Edge Sewing Machine Operator Name Role Phone Randal Pinon DO Primary Care Provider Encounter Details Date Type Department Care Team (Late Contact Info) Description 08/20/2020 Orders Only [facility] - [facility] [address] [facility] 3 [place] [phone] Millie Christiansen MD Chronic kidney disease stage [...] Visit [facility] - [address] [place] [address] Kendrick Argueta MD [address] [place] [address] [place] [phone] documented as of this encounter Visit Diagnoses Diagnosis Chronic kidney disease stage 3 (HCC) documented in this encounter Care Teams Picked Edge Sewing Machine Operator Relationship Specialty Start Date End Date Kathrin Randal [address] [facility] [place] [address] PCP - General 09/30/19 documented as of this encounter
== END 2025-10-14 11:52 | disposition home or self-care (01) ==
LOC: HO.MANLDS 11:51
PROVIDERS: Visit Provider Internal Medicine
DX: E11.22 Type 2 diabetes mellitus with diabetic chronic kidney disease (principal)
CPT/HCPCS: 36415; 80053; 80061; 83036

== ENCOUNTER 2025-10-19 18:46 | Outpatient (REF) | payer MEDICARE, OTHER, SELFPAY ==
--- OUTSIDE RECORDS SUMMARY | 2025-10-19 20:37 | XMS_ITS | Encounter Summary ---
Author Organization [facility] Address [address] [facility] [address] [place] [address] Phone Care Team Providers Care Emergency Medicine Nurse Practitioner Name Role Phone Randal Pinon Primary Care Provider [phone] Encounter Details Date Type Department Care Team (Late st Contact Info) Description 08/26/2025 Procedure Pass [facility], [address] [place] [address] Social History Tobacco Use Types Packs/Day Years [...] Description 12/03/2025 10:00 AM EST Office Visit [facility] Diabetes [address] [address] Enedelia Duncan, DAYCARE PROVIDER [address] [place] [phone] [email or web address] 03/23/2026 11:00 AM EDT Nutrition [address] [address] Candace Meyers, LIVE [address] [place] [address] documented as of this encounter Visit Diagnoses Not on filedocumented in this encounter Care Teams Emergency Medicine Nurse Practitioner Relationship Specialty Start Date End Date Randal Pinon DO [address] [place] [id number] PCP - General Internal Medicine 08/05/25 documented as of this encounter Additional Source Comments The information contained in this document represents components of the legal health record. It is not the complete legal health record.[facility]
--- OUTSIDE RECORDS SUMMARY | 2025-10-19 20:37 | XMS_ITS | Encounter Summary ---
Author Organization [facility] Address [address] [facility] [address] [place] [address] Phone Care Team Providers Care Visual Communications Instructor Name Role Phone Randal Pinon DO Primary Care Provider [phone] Reason for Referral * MRI/CAT Scan - Closed Specialty Diagnoses / Procedures Referred By Rhoda fields Referred To Contact Radiology Diagnoses Disorientation, unspecified Procedures MRI Brain Randal Pinon DO [address] [facility] [place], [place] Phone: tel: fax: [email or web address] Referral ID Status Reason Start Date Expiration Date Visits Re quested Visits Authorized [id number] Closed 08/26/2025 08/26/2026 1 1 Encounter Details Date Type Department Care Team (Late st Contact Info) Description 08/26/2025 Transcribe Orders Virtual Department [address] [place] [address] Randal Pinon DO [address] [facility] [address] Disorientation, unspecified (Primary Dx) Social History Tobacco [...] Description 12/03/2025 10:00 AM EST Office Visit [facility] [address] [place] [address] Enedelia Duncan CNP [address] [place] [phone] [email or web address] 03/23/2026 11:00 AM EDT Nutrition [facility] Diabetes [address] [address] Candace Meyers LDN [address] [place] [phone] documented as of this encounter Results * [...] clinician's provided indication for this examination in [facility]: Outside Radiology Order; disorientation TECHNIQUE: MRI BRAIN [...] clinician's provided indication for this examination in [facility]:Outside Radiology Order; disorientation TECHNIQUE: MRI BRAIN WITHOUT [...] Probable mildchronic small vessel disease. us Randal A Bigda DO IMG MR HEAD/NECK Final Result documented in this encounter Visit Diagnoses Diagnosis Disorientation, unspecified- Primary Disorientation, unspecified documented in this encounter Care Teams Visual Communications Instructor Relationship Specialty Start Date End Date Jackieadolfo Randal Velázquez DO [address] [place] [address] [email or web address] PCP - General Internal Medicine 08/05/25 documented as of this encounter Additional Source Comments The information contained in this document represents components of the legal health record. It is not the complete legal health record.[facility]
--- OUTSIDE RECORDS SUMMARY | 2025-10-19 20:37 | XMS_ITS | Encounter Summary ---
Author Organization [facility] Address [address] [facility] [address] [place] [address] Phone Care Team Providers Care Director Of Healthcare Systems Name Role Phone Randal Pinon DO Primary Care Provider [phone] Randal Pinon DO Primary Care Provider [phone] Encounter Details Date Type Department Care Team (Late st Contact Info) Description 02/25/2024 Transcribe Orders Virtual Department [address] [place] [address] Leigh Devine PA [address] [place] [address] [email or web address] Upper abdominal pain (Primary Dx); Biliary calculus [...] Description 12/03/2025 10:00 AM EST Office Visit [facility] [address] [place] [address] [place] [address] Enedelia Duncan, SURVEY RESEARCH MANAGER [address] [facility], [address] [place] [phone] [email or web address] 03/23/2026 11:00 AM EDT Nutrition [facility] Diabetes [place] [address] [place] [address] Candace Meyers LDN [address] [place] [phone] documented as of this encounter Results * [...] communicated on 03/04/2024 5:45 AM, Message ID [id number]. Narrative 03/04/2024 5:45 AM EDT US ABDOMEN [...] clinician's provided indication for this examination in [facility]:Outside Radiology Order; upper abdomen pain TECHNIQUE: US [...] was communicated on 03/04/2024 5:45 AM,Message ID [id number]. Leigh PINK IMG US ABDOMEN Final Re sult documented in this encounter Visit Diagnoses Diagnosis Upper abdominal pain- Primary Biliary calculus of other site without obstruction Upper abdominal pain Biliary calculus of other site without obstruction documented in this encounter Care Teams Director Of Healthcare Systems Relationship Specialty Start Date End Date Randal Pinon DO [email or web address] PCP - General Internal Medicine 07/24/22 08/04/25 Randal Pinon DO [address] [place] [address] [email or web address] PCP - General Internal Medicine 08/05/25 documented as of this encounter Additional Source Comments The information contained in this document represents components of the legal health record. It is not the complete legal health record.[facility]
--- OUTSIDE RECORDS SUMMARY | 2025-10-19 20:37 | XMS_ITS | Data Portability ---
Author Organization [facility], Telehealth Patient Home Address [address] [place] [address] Assessment Encounter Date Assessment Date Assessment LastModified by Organization Details LastModified Time 01/02/2025 01/02/2025 [address] [place] [address] (DIRECTOR RADIATION ONCOLOGY) : MDM LOW MUST MEET 2 OF [...] reduce health risks and promote healthy living. [email or web address] Not available 04/22/2025 15:44:08 08/26/2025 08/26/2025 [address] [place] [address] (DIRECTOR RADIATION ONCOLOGY) MDM MODERATE MUST MEET 2 OUT OF [...] COVERED Not available 08/26/2025 15:12:12 09/25/2025 09/25/20[place] [address] [place] [address] (DIRECTOR RADIATION ONCOLOGY) MDM MODERATE MUST MEET 2 OUT OF [...] THAT IS COVERED Not available 09/25/2025 16:30:30 10/19/2025 10/19/2025 [id number] [place] [address] (DIRECTOR RADIATION ONCOLOGY) MDM MODERATE MUST MEET 2 OUT OF [...] EACH ELEMENT THAT IS COVERED Not available 10/19/2025 16:45:13 Plan of Treatment Reminders Order Date Submit Date Provider Last Modified By Organization Details Last Modified Time Details Appointments FOLLOW UP 15 2024 04:15P M DR ESTRADA Not available Not available Not available FOLLOW UP 15 2024 09:30A M DR ESTRADA Not available Not available Not available FOLLOW UP 15 2024 10:15A M DR ESTRADA Not available Not available Not available Lab BMP, serum or plasma 2024 [facility], [address] [place] [address], [address], 10/19/2025 16:46:34 hemoglobi n A1c, QN, blood 2024 025 [facility], [address] [place] [address], [place], [address], 01/05/2025 12:19:[address] referral 2024 025 [email or web address] Marques Warren MD, [address] [place] [address], [address], 10/19/2025 16:48:58 Procedures None recorded. Surgeries None recorded. Imaging MRI, brain, w/o contrast 2024 025 [facility] Central Scheduling (Not Breast), [address] [place] [address], [address], 08/28/2025 08:41:16 Medication Orders triamtere ne 37.5 mg-hydroc hlorothia zide 25 mg tablet 2024 025 [id number], [address] [place], [address], 10/19/2025 16:39:21 terbinafi ne HCl 250 mg tablet 2024 025 [id number], [address] [place], [address], 08/26/2025 15:05:26 ketoconaz ole 2 % topical cream 2024 025 [id number], [address] [facility], [place], [address], 01/02/2025 10:32:56 Patient TargetsNo targets recorded. Patient Instructions Encounter Date Encounter Id Patient Instructions Last Modified By Organization Details Last Modified Time 05/04/2025 [id number] advance care planning: care instructions Not available 05/04/2025 12:28:16 Discussed and explained advance directives such as standard forms to the patient. Face to face discussion lasted for a duration of __25_ minutes. Not available 05/04/2025 14:02:00 09/25/2025 [id number] learning about type 2 diabetes Not available 09/25/2025 16:33:46 type 2 diabetes: care instructions Not available 09/25/2025 16:33:46 Reason for Referral Neurologist Referral for Unc ompensated short term memory deficit having worsening memory and motivation we wish your opinion as to possible further work up or tr Referring Physician: Randal Estrada, Internal Medicine, Encounter Date: 10/19/2025 Results Created Date Observation Date Name Description Value Unit Range Abnormal Flag Note LastModifiedBy Organization Detail LastModifiedTime 09/29/2009/27/2025 MRI, brain , w/o contr ast No observ ation record ed. [email or web address] [facility] [address] [place], [address], 10/05/2025 08:55:03 Result Notes None recorded. Problems Name Problem SNOMED Code Status Onset Date Resolution Date Notes Provider Name and Address Organization Details Recorded Time Type 2 diabetes mellitus 06832199 Active 2017 Randal Estrada, DO [address] [facility], [place], [address], [facility] 5 15:15:25 Neuropath y due to diabetes mellitus 937092513 Active 2017 Not Available [facility] 3 16:04:36 Essential hypertens ion 60194733 Active 2017 Not Available [facility] 3 16:04:36 Hyperchol esterole[place] 62802090 Active 2017 Not Available [facility] 3 16:04:35 Chronic kidney disease 185117901 Active 2017 Stage 3 Not Available [facility] 3 16:04:36 Melena 4465890 Active 2021 Not Available [facility] 3 16:04:36 Dysuria 21688538 Active 2021 Not Available [facility] 3 16:04:36 Chronic kidney disease stage 3 250984291 Active 2022 Not Available [facility] 3 16:04:36 Cholecyst itis 25240265 Active 2023 APRYL SPRAGUE [address] [place] [address], [address], [facility] 4 11:59:49 Gastritis 8543322 Active 2023 APRYL SPRAGUE [address] [place] [address], [address], [facility] 4 12:04:13 Diarrhea 71669924 Active 2023 APRYL SPRAGUE [address] [place] [address], [address], [facility] 4 13:44:52 Depressiv e disorder 00514083 Active 2023 Randal Estrada DO [address] [place] [address], [address], [facility] 4 10:36:59 Dupuytren 's contractu re of finger 416388850 Active 2023 Randal Estrada DO [address] [place] [address], [address], [facility] 4 11:05:22 Dermatoph ytosis 15950284 Active 2023 Randal Estrada DO [address] [place] [address], [address], [facility] 4 11:02:32 Osteoarth ritis of right knee joint 329495715983 100 Active 2024 Randal Estrada, DO [address] [place] [address], [address], [facility] 5 10:34:03 Onychomyc osis of toenails 671369025 Active 2024 Randal Estrada, [address], [address], [facility] 5 12:27:18 Disorient ated 31203426 Active 2024 Randal Estrada, [address], [address], [facility] 15:16:40 Confusion al state 739588525 Active 2024 Randal Estrada [address], [address], [facility] 16:31:31 Keshav hematuria 261935240 Active 2024 Randal Estrada [address], [address], [facility] 13:36:11 Uncompens ated short term memory deficit 62871830 Active 2024 Randal Estrada [address], [address], [facility] 16:40:52 Notes:Some problems listed i n Documents: #[id number], #[id number], #[id number], #[id number], #[id number], #[id number], #[id number], #[id number], #[id number] could not be added to this patient's [...] n cough Not available Not available 02/20/2018 08365 RxNorm Mayte ag [place] [facility] 8 13:34:23 9838 loratadin e medicatio n other Not available Not available 10/14/20252019 84279 RxNorm Not Available brandon - External Data Service - prod 5 [...] completed Not Available Not Available Not Available triamteren e 37.5 mg-hydroch lorothiazi de 25 mg tablet Take 1 tablet every day by oral route for 30 days. 2024 active Not Available Not Available Not Avai lable mirtazapin e 15 mg tablet TAKE 1 TABLET BY MOUTH EVERY DAY FOR 30 DAYS 08/26 completed Not Available Not Available Not Available metoprolol succinate ER 25 mg tablet,ext ended release 24 hr TAKE 1 TABLET ONCE DAILY 10/19 completed Not Available Not Available Not Available ketoconazo le 2 % topical cream [...] Not Available Not Available Not Available Basaglar ArtikPen U-100 Insulin 100 unit/mL (3 mL) subcutaneo [...] Not Available Not Available No t Available Dexcom G6 Sensor active Not Available Not Available Not Available BD Princess 2nd Gen Pen Needle 32 gauge x 5/32 USE 2 TIMES A DAY BEFORE MEALS active Not Available Not Available No t Available FreeStyle Gilberto 2 Sensor kit use 1 sensor every 14 days 10/19 completed Not Available Not Available Not Available FreeStyle Gilberto 2 Bowler Use as directed . 10/19 completed Not Available Not Available Not Available Fluzone High-Dose Quad (PF) 240 mcg/0.7 mL [...] (BMI) Body weight Heart rate Oxygen saturation Systolic And Diastolic Provider Name and Address Organization Details Last Updated DateTime 5 170.18 cm 27.7 kg/m2 88365.8 5 g 78 /min 98 % 140/80 mm[Hg] Isis Kirk [facility] 5 09:53:21 Date Recorded Body height Body mass index (BMI) Body weight Heart rate Oxygen saturation Systolic And Diastolic Provider Name and Address Organization Details Last Updated DateTime 5 170.18 cm 28.6 kg/m2 60596.0 4 g 71 /min 97 % 126/72 mm[Hg] GAIL CEDILLO [facility] 5 11:49:23 Date Recorded Body height Body mass index (BMI) Body weight Heart rate Oxygen saturation Systolic And Diastolic Provider Name and Address Organization Details Last Updated DateTime 5 170.18 cm 27.4 kg/m2 08875.6 6 g 62 /min 98 % 128/84 mm[Hg] Ingrid Holden [facility] 5 14:45:30 Date Recorded Body height Body mass index (BMI) Body weight Oxygen saturation Heart rate Systolic And Diastolic Provider Name and Address Organization Details Last Updated DateTime 5 170.18 cm 27.8 kg/m2 86137.7 2 g 94 % 62 /min 124/70 mm[Hg] GAIL CEDILLO [facility] 5 16:13:43 Date Recorded Body height Body mass index (BMI) Body weight Heart rate Oxygen saturation Systolic And Diastolic Provider Name and Address Organization Details Last Updated DateTime 5 170.18 cm 28.6 kg/m2 80170.9 7 g 68 /min 99 % 138/60 mm[Hg] Pat Leonardo [facility] 5 16:16:49 Social History Question Answer Notes LastModified by Organizat ion Details LastModified Time Tobacco Smoking Status Former Smoker Not Available [facility] 09/28/2020 03:36:24 What Was The Date Of Your Most Recent Tobacco Screening? 10/19/2025 [email or web address] Information not available 10/19/2025 How Many Years Have You Smoked Tobacco? 50 [id number] Information not available 09/28/2020 Sex: Unknown Functional Status Question Answer Note LastModified by Organization D etails LastModified Time Do you or have you ever used any other forms of tobacco or nicotine? No Information not available 08/20/2023 Mental Status None [...] Time zoster recombinant 5 completed Not Available [facility] 08/06/2023 16:05:00 Influenza, split virus, quadrivalent, preservative 8 completed Not Available [facility] 08/06/2023 16:05:00 COVID-19, mRNA, LNP-S, PF, 30 mcg/0.3 mL dose 1 completed Not Available [facility] 08/06/2023 16:05:00 Influenza, split virus, quadrivalent, preservative 1 completed Not Available [facility] 08/06/2023 16:05:00 COVID-19, mRNA, LNP-S, PF, 30 mcg/0.3 mL dose 2 completed Not Available [facility] 08/06/2023 16:05:00 influenza, unspecified formulation 2 completed Not Available [facility] 08/06/2023 16:05:00 zoster, unspecified formulation 4 completed Randal Estrada, DO [address] [facility], [place], [address], [facility] 05/11/2024 08:53:32 influenza, unspecified formulation 5 completed GAIL ag [facility] 08/28/2025 13:20:35 Influenza, split virus, quadrivalent, preservative 9 completed Not Available [facility] 08/06/2023 16:05:00 Influenza, split virus, quadrivalent, preservative 0 completed Not Available [facility] 08/06/2023 16:05:00 COVID-19, mRNA, LNP-S, PF, 30 mcg/0.3 mL dose 1 completed Not Available [facility] 08/06/2023 16:05:00 COVID-19, mRNA, LNP-S, PF, 30 mcg/0.3 mL dose 1 completed Not Available [facility] 08/06/2023 16:05:00 Past Encounters Encounter ID Performer Location Encounter Start Date Encounter Closed Date Diagnosis/Indication Diagnosis SNOMED-CT Code Diagnosis ICD10 Code Diagnosis IMO Codes Diagnosis Note [id number] February JB Mullen [facility] [address] [facility],[place] [address] 02/25/2018 10:16:02 02/25/2018 11:34:02 Type 2 diabetes mellitus 34612139 E11.40 E11.3293 exercise more- pt plans to walk more- this is encouraged better diet control continue januvia & glipizide consider restarting metformin in future continue daily fbs monitoring continue q9week toenail maintenanc e Benign ess ential hypertension 3445210 I10 stable, continue metoprolol daily, as well as baby asa Hyperlipidemia 39114481 E78.2 overdue for labs- will order for next visit Chronic ki dney disease stage 3 839352269 N18.3 will monitor cmp. continue care with dr. christiansen. reinforced kidney health diet. praised for increase intake of fish over mammalian sources. [id number] Randal Estrada DO [facility] [address] [facility],[place] [address] 05/27/2018 08:54:43 05/27/2018 09:41:01 Type 2 diabetes mellitus 89284846 E11.3293 E11.40 pt reluctant to start new [...] metformin increase exercise Benign ess ential hypertension 0982440 I10 stable, continue metoprolol daily, as well as baby asa Hyperlipidemia 42336186 E78.2 LDL not quite at goal - diet and exercise recommende d Chronic ki dney disease stage 3 096572345 N18.3 will monitor cmp. continue care with dr. christiansen. reinforced kidney health diet. praised for increase intake of fish over mammalian sources. no improvemen t with d/c of metformin [id number] Randal Estrada DO [facility] [address] [facility], [place] [address] 10/08/2018 09:31:32 10/08/2018 10:40:01 Type 2 diabetes mellitus 92069354 E11.3293 E11.40 a1c worse at 8.8, up [...] metformin increase exercise Benign ess ential hypertension 0059889 I10 stable, continue metoprolol daily, as well as baby asa Hyperlipidemia 95630232 E78.2 LDL worse will increase lovastatin Chronic ki dney disease stage 3 733323293 N18.3 will monitor cmp. continue care with dr. christiansen. reinforced kidney health diet. praised for increase intake of fish over mammalian sources. no improvemen t since d/c of metformin Body mass index 25-29 - overweight 718857171 Z68.29 working on eating a healthier diet now. [id number] Randal Estrada DO [facility] [address] [facility],[place] [address] 12/31/2018 09:05:34 12/31/2018 10:11:48 Type 2 diabetes mellitus 58780566 E11.3293 E11.40 a1c improved from 8.8 to [...] goal of <7 Benign ess ential hypertension 4313254 I10 well-contr olled, continue metoprolol daily, as well as baby asa Hyperlipidemia 98203194 E78.2 cholestero l panel improved LDL still not quite at goal with LDL of 101 but down from 140 Chronic ki dney disease stage 3 174234875 N18.3 will monitor cmp. continue care with dr. christiansen. reinforced kidney health diet. praised for increase intake of fish over mammalian sources. no improvemen t since d/c of metformin Body mass index 25-29 - overweight 174208232 Z68.29 working on eating a healthier diet now [id number] Randal Estrada DO [facility] [address] [facility],[place] [address] 06/20/2019 10:34:21 06/20/2019 11:57:48 Type 2 diabetes mellitus 63439628 E11.22 actually heading in the right direction and hgb down from 9.5 and down to 8 cont good diet and glipizide and januvia Essential hypertension 19528419 I10 here for chk and is doing ok and is tolerating med without issue Active or passive immunization 803805759 Z23 needs tdap as last vaccine will send to pharm Chronic ki dney disease 556956955 N18.9 seems stable and no change in his meds Neuropathy due to diabetes mellitus 497185369 E11.49 ongoing neuropathy but is self limited [id number] Randal Estrada DO [facility] [address] [facility],[place] [address] 10/31/2019 08:57:37 10/31/2019 09:18:49 Essential hypertension 09168444 I10 here for chk and is doing ok and is tolerating med without issue Type 2 damaris betes mellitus 80881208 E11.22 actually heading in the right direction and hgb down from 9.5 and down to 8 cont good diet and glipizide and januvia Chronic ki dney disease 161640579 N18.9 seems stable and no change in his meds follows with dr christiansen and all has been ok reviewed lab in detail [facility] pt Neuropathy due to diabetes mellitus 682849176 E11.49 ongoing neuropathy but is self limited [id number] Randal Estrada [facility] [address] [facility] [place], [place] [facility] [place] [address] 01/30/2020 09:03:51 01/30/2020 09:52:06 Type 2 diabetes mellitus 89089765 E11.22 A1c is 9.4, was 8 (but that was when he switched from glipizide to glimepirid e) states that his sugar is much better now that he has switched back cont good diet and glipizide and januvia staying active, walks with will have labs redo at the end of this month Essential hypertension 76944309 I10 BP is stable on the metoprolol 130/70 (01/30/20) Chronic ki dney disease 992095696 N18.[address] Christiansen again during the first week of February for f/u appt. will get blood work done at end of January to bring to him [id number] Randal Estrada [facility] [address] [facility], [place] [facility] [place] [address] 03/12/2020 11:41:20 03/12/2020 12:22:20 Hypercholesterolemia 10258212 E78.00 will be checking in a few months Type 2 damaris betes mellitus 87651450 E11.22 A1c is 9.3 and was 9.4, was 8 (but now he switched back from glipizide to glimepirid e and states that his sugar is much better now that he has switched back cont good diet and glipizide and januvia staying active, walks with will have labs redo at the end of this month Essential hypertension 63590308 I10 BP is stable on the metoprolol 130/70 (01/30/20) [id number] Randal Estrada [facility] [address] [facility] [place], [place] [place] [address] 05/24/2020 10:26:33 05/24/2020 11:10:22 Type 2 diabetes mellitus 26140675 E11.22 A1C was 9.3 is now 8.6 [...] the end of this month Essential hypertension 61111680 I10 BP is stable on the metoprolol Chronic dney disease 023560738 N18.[address] Christiansen next mo Ganglion c yst of left hand 3239753007 43144 M67.442 L 1st digit palmar Will monitor and refer if locking or painful [id number] Randal Estrada [facility] [address] [facility] [address] [place] [facility] [address] 11/23/2020 08:40:27 11/23/2020 15:44:08 Type 2 diabetes mellitus 76291260 E11.22 A1C was in jul 9.5 due [...] much due to the cold Essential hypertension 83681453 I10 BP is stable on the metoprolol Chronic dney disease 078901015 N18.[address] Christiansen next mo Neuropathy due to diabetes mellitus 110685660 E11.49 ongoing neuropathy but is self limited and has not worsened Hypercholesterolemia 136 92432 E78.00 will be checking in a few months Primary er ectile dysfunction 267087060 N52.9 [id number] Randal Estrada [facility] [address] [facility] [address],[place] [address] 03/09/2021 10:46:48 03/09/2021 11:27:21 Essential hypertension 59227051 I10 BP is stable on the metoprolol Type 2 damaris betes mellitus 70035740 E11.22 A1C was in jul 9.5 due [...] much due to the cold Hypercholesterolemia 136 07449 E78.00 will be checking in a few months [id number] Randal Estrada [facility] [address] [facility] [address],[place] [address] 06/22/2021 10:44:36 06/22/2021 11:33:49 Type 2 diabetes mellitus 79686201 E11.22 A1C was 7.4 today and was [...] much due to the cold Essential hypertension 16943694 I10 BP is stable on the metoprolol Chronic ki dney disease stage 3 722429977 N18.30 stable and is followed by renal although his numbers are about the same [id number] Randal Estrada DO [facility] [address] [facility] [address],[place] [address] 10/17/2021 11:12:08 10/17/2021 11:41:11 Type 2 diabetes mellitus 92263180 E11.22 A1C was 7.4 today and was [...] much due to the cold Hypercholesterolemia 136 36219 E78.00 will be checking in a few months but we feels he is doing good Essential hypertension 77016652 I10 BP is stable on the metoprolol cont current meds Type 2 damaris betes mellitus without complication 630226272 E11.9 a1c is 7.8 and doing oktrying not to eat too much [id number] Randal Estrada [facility] [address] [facility],[place] [facility] [address] 01/30/2022 11:16:50 01/30/2022 15:15:57 Type 2 diabetes mellitus 76780176 E11.22 A1C was8.5 and in september was [...] much due to the cold Essential hypertension 93739056 I10 BP is stable on the metoprolol cont current meds Type 2 damaris betes mellitus without complication 195004233 E11.9 a1c is 7.8 and doing oktrying not to eat too much Chronic ki dney disease stage 3 225834147 N18.30 stable and is followed by renal although his numbers are about the same Neuropathy due to diabetes mellitus 869050447 E11.49 ongoing neuropathy but is self limited and has not worsened Hypercholesterolemia 136 54564 E78.00 will be checking in a few months but we feels he is doing good Candidiasis of skin 4988 3006 B37.2 [id number] Randal Estrada [facility] [address] [facility],[place] [facility] [address] 05/17/2022 10:50:14 05/17/2022 11:48:20 Depression screening 834425831 Z13.31 stable and negative Active or passive immunization 585027453 Z23 needs tdap as last vaccine will send to pharm Adult heal th examination 772065345 Z00.01 long detailed discussion with present explaining the need to eat right he is eating all carbs and sweets and is not following a good dieti explained how this is hurting him etche will try to be better and we wilkl hold off on using insulin etc we will have him try to get a fre[place] gilber[place] etc [id number] Randal Estrada [facility] [address] [facility] [address],[place] [address] 06/23/2022 14:32:22 06/26/2022 08:42:21 Type 2 diabetes mellitus 18437789 E11.22 placed freestyle gilberto, upper left armpatient already has sridhar set up [id number] Randal Estrada [facility] [address] [facility] [address] [place],[place] [address] 08/04/2022 14:11:26 08/04/2022 14:25:16 Type 2 diabetes mellitus 91574220 E11.22 A1C was 8.5 and in september [...] to the cold Chronic ki dney disease 572719104 N18.[address] Christiansen next mo Essential hypertension 39258863 I10 BP is stable on the metoprolol cont current meds [id number] Randal Estrada [facility] [address] [facility] [address],[place] [address] 11/10/2022 09:44:48 11/10/2022 14:41:44 Essential hypertension 91790717 I10 BP is stable on the metoprolol cont current meds Type 2 damaris betes mellitus 83692499 E11.22 A1C is pending Continue to work on diet and will keep walking daily PRIOR: last year cont good diet and trulicity and januvia staying active, walks with but not as much due to the cold Melena 4131522 K92.1 no evidnce of bleeding no evid of melena Chronic ki dney disease 848297012 N18.9 stable has had some lab earlier this [place] [id number] Randal Estrada [facility] Internal Medicine [address] [facility] [place] [address] 01/05/2023 09:18:59 01/05/2023 09:52:37 Type 2 diabetes mellitus 35576339 E11.22 A1C is pending Continue to work on diet and will keep walking daily PRIOR: last year cont good diet and trulicity and januvia staying active, walks with but not as much due to the cold Hypercholesterolemia 136 64006 E78.00 will be checking in a few months but we feels he is doing good Type 2 damaris betes mellitus without complication 360526988 E11.9 a1c is up to 9.7 this with januvia and trulicity we will try to change the januvia to jardiancet rying not to eat too much Chronic ki dney disease stage 3 [id number] N18.30 stable and is followed by renal although his numbers are about the same Chronic ki dney disease 984652654 N18.9 stable has had some lab earlier this year seeing Dr. Christiansen next mo Essential hypertension 19715356 I10 BP is stable on the metoprolol cont current meds [id number] Randal Estrada [facility] Internal Medicine [address] [facility] [address] 08/20/2023 11:35:04 08/20/2023 12:26:56 Chronic kidney disease stage 3 736525492 N18.30 stable and is followed by renal dr christiansen although his numbers are about the same Essential hypertension 25920579 I10 BP is stable on the metoprolol cont current meds Hypercholesterolemia 136 44249 E78.00 will be checking in a few months but we feels he is doing good Type 2 damaris betes mellitus 64470616 E11.22 A1C is pending Continue to work on diet and will keep walking daily through endocrinol ogyno major issues except he is followed by endocrinst khanh larios, walks with but not as much due to the weather [id number] Randal Estrada DO [facility] Internal Medicine [address] [facility] [address],[place] [address] 11/07/2023 11:36:08 11/07/2023 12:23:54 Essential hypertension 28367233 I10 BP is stable on the metoprolol cont current meds Hypercholesterolemia 136 61273 E78.00 will be checking in a few months but we feels he is doing good Type 2 damaris betes mellitus 81840968 E11.22 A1C is 8.7 Continue to work on diet and will keep walking daily through endocrinol ogyno major issues except he is followed by endocrinst khanh lairos, walks with but not as much due to the weather Chronic ki dney disease 096608917 N18.9 arun has had some lab earlier this year seeing Dr. Christiansen next mo Chronic ki dney disease stage 3 413681326 N18.30 stable and is followed by renal dr christiansen although his numbers are about the same Type 2 damaris betes mellitus without complication 341917725 E11.9 a1c was up to 9.7 now down to 8.7 on jardiance and trulicityt rying not to eat too much but admits to eating things she shouldnt at times [id number] Randal Estrada [facility] Internal Medicine [address] [facility],[address] [address] [place] [address] 02/05/2024 11:43:52 02/05/2024 15:49:20 Cholecystitis 42607536 K80.47 currently on prilosec 40 mg for the next 30 dayscurren tly on sucralfate 1 g for the next 30 days Gastritis 2531714 K29.60 will set up [id number] Randal Estrada [facility] Internal Medicine [address] [facility] [address],[place] [address] 03/17/2024 10:04:01 03/17/2024 11:30:46 Chronic kidney disease 141805147 N18.9 stable has had some lab earlier this year seeing Dr. 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 288665493 E11.9 a1c was up to 9.7 now down to 9.3 was 8.7 on jardiance and trulicityt rying not to eat too much but admits to eating things she shouldnt at times Type 2 damaris betes mellitus 42363736 E11.22 A1C is 8.7 Continue to work on diet and will keep walking daily through endocrinol ogyno major issues except he is followed by endocrinst khanh larios, walks with but not as much due to the weather Hypercholesterolemia 136 76480 E78.00 will be checking in a few months but we feels he is doing good Cholecystitis 19568128 K 80.47 Depressive disorder 9067 9007 F32.A 798235 Randal Estrada [facility] Internal Medicine [address] [facility],[place] [address] 04/28/2024 15:15:27 04/28/2024 16:09:08 Depression screening 722668930 Z13.31 stable Depressive disorder 7556 9007 F32.A will increase the dose 331206 Randal Estrada [facility] Internal Medicine [address] [facility],[place] [address] 05/28/2024 10:36:07 05/28/2024 11:23:55 Essential hypertension 82103400 I10 BP is stable on the metoprolol cont current meds Chronic ki dney disease 677830366 N18.9 stable has had some lab earlier this year seeing Dr. lopes next mo Type 2 damaris betes mellitus 34076545 E11.22 A1C was 8.7 last visit a1c now is pending Continue to work on diet and will keep walking daily through endocrinol ogyno major issues except he is followed by endocrinst khanh larios, walks with but not as much due to the weather Dupuytren' s contracture of finger 553834347 M72.0 Depressive disorder 9145 0047 F32.A will increase the dose 759733 Randal Estrada [facility] Internal Medicine [address] [facility] [address],[place] [address] 09/24/2024 10:31:31 09/24/2024 11:22:37 Chronic kidney disease 810723986 N18.9 stable has had some lab earlier this year seeing Dr. lopes next mo Essential hypertension 47016133 I10 BP is stable on the metoprolol cont current meds Type 2 damaris betes mellitus 32995782 E11.22 A1C was 8.7 last visit a1c now is pending Continue to work on diet and will keep walking daily through endocrinol ogyno major issues except he is followed by endocrinst khanh larios, walks with but not as much due to the weather Dermatophytosis 53552677 B35.9 Depressive disorder 2778 9007 F32.A will increase the dose 808825 Randal Estrada [facility] Internal Medicine [address] [facility],[place] [address] 01/02/2025 09:48:00 01/02/2025 10:47:55 Essential hypertension 38009790 I10 BP is stable on the metoprolol cont current meds 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 3 Osteoarthr itis of right knee joint 1389730448 20006 M17.11 sherine is well paola 516608 Randal Estrada [facility] Internal Medicine [address] [facility],[place] [address] 05/04/2025 11:33:25 05/04/2025 13:46:06 Screening for cardiovascular system disease 411906855 Z13.6 long detailed discussion with present explaining the need to eat right he is eating all carbs and sweets and is not following a good diet Essential hypertension 71536228 I10 BP is stable on the metoprolol cont current meds Hypercholesterolemia 136 92662 E78.00 will be checking in a few months but we feels he is doing good Type 2 damaris betes mellitus 74661021 E11.22 A1C was 8.7 last visit a1c now is pending Continue to work on diet and will keep walking daily through endocrinol ograe major issues except he is followed by endocrinst khanh larios, walks with but not as much due to the weather General ex amination of patient 071606412 Z00.01 07352273 eating better and diet is good a1c is 7.5 Onychomyco sis of toenails 921939214 B35.1 8739811 [id number] Randal Estrada [facility] Medicine [address] [facility],[place] [address] 08/26/2025 14:33:32 08/26/2025 16:37:28 Depression screening 754171369 Z13.31 stable Essential hypertension 33963537 I10 BP is stable on the metoprolol cont current meds Type 2 damaris betes mellitus 17093422 E11.22 A1C is 7.1 was 8.7 last visit a1c now is pending Continue to work on diet and will keep walking daily through endocrinol ogyno major issues except he is followed by endocrinst khanh larios, walks with but not as much due to the weather Disorientated 00110421 R 41.0 873592 noted to be having signif difficulty [id number] Randal Estrada [facility] Internal Medicine [address] [facility],[place] [address] 09/25/2025 15:56:22 09/28/2025 08:47:40 Depression screening 590401856 Z13.31 stable Essential hypertension 46241127 I10 BP is stable on the metoprolol cont current meds Type 2 damaris betes mellitus 88131169 E11.22 A1C is 7.1 off jardiance Continue to work on diet and will keep walking daily through endocrinol ogyno major issues except he is followed by endocrinst khanh larios, walks with but not as much due to the weather Confusional state 252954 003 R41.0 54734 stopping the jardiance did not help bp are low normal and will have him wean off beta allen to see if some of the confusion gets better rechk in a couple weeks [id number] Randal Estrada [facility] Internal Medicine [address] [facility],[place] [address] 10/19/2025 16:08:58 10/19/2025 16:48:58 Depression screening 932666597 Z13.31 stable Essential hypertension 21899252 I10 will try dyazide cont to stay off the metoprolol cont current meds Hypercholesterolemia 136 71626 E78.00 will be checking in a few months but we feels he is doing good Type 2 damaris betes mellitus 77011040 E11.22 A1C is 7.1 off jardiance Continue to work on diet and will keep walking daily through endocrinol ogyno major issues except he is followed by endocrinst aying active, walks with but not as much due to the weather Uncompensa elaina short term memory deficit 08264625 R41.3 8681499 Health Concerns Section Related Observation LastModified by Organization Detai ls LastModified Time None Recorded Concern Status LastModified by Organization Details LastModified Time None Recorded Advance Directives Directive None Recorded Payers Insurance Date Sequence Insurance Name Policy Number Policy Adams Covered Member ID Adams Member ID Guarantor Name 10/19/2025 1 [place]IC[place]: [employer] Max Rodriguez [id number] Max Rodriguez 10/16/2025 2 [employer] - MAIL [employer] BENEFIT PLAN (PPO) [id number] Max Rodriguez [id number] Max Rodriguez Notes Date Note Type Note Provider Name and Address Organization Details Recorded Time 01/02/20 25 text/htm l Care Management - [...] as noted in the HPI Randal Estrada, DO [address] [facility], [place], [address], [facility] 01/02/2025 10:34:40 05/04/20 25 text/htm [...] andno fatigue. Care Management - HyperlipidemiaReported by PatientIFor control, patient reportsusually well controlled,improving, andat goal. [...] up once or twice at most Randal A. DO Kathrin [address] [facility], [place], [address], [facility] 05/04/2025 13:43:48 08/26/20 25 text/htm l Care Management - HypertensionReported by PatientHPIFor self care, patient reportsnot under emotional stress. For severity, patient reportssymptoms are improvinganddoes not interfere with daily activities. For associated symptoms, patient reportsno dizziness,no lightheadedness,no chest pain,no shortness of breath,no palpitations,no edema,no calf muscle cramps,no blurred vision,no confusion,no headaches, andno fatigue. Care Management - DiabetesReported by PatientIFor self care, patient reportsseeing eye doctor yearly [...] but is still remembering to do bills etches no longer watching the ipadnot reading Randal Estrada DO [address] [place], [address], [facility] 08/26/2025 15:18:43 09/25/20 25 text/htm l ROS as noted in the HPI here for rechk he is still fatigued and not motivated confusion is still presentand relates worse at nightnot hungry at times Randal Estrada DO [address] [place], [address], [facility] 09/25/2025 16:34:08 10/19/20 25 text/htm l Care Management - [facility]Reported by [facility], patient reportsseeing eye doctor yearly [...] disease,no heart attack,no cardiovascular disease,no pancreatitis, andno stroke.ROS as noted in the HPI still the same no real improvemnthas been off jardiance for a month and no real change off metoprolol for 10 days and no real change here for rechk he is still fatigued and not motivated confusion is still presentand relates worse at nightnot hungry at times Randal Estrada DO [address] [facility], [place], [address], [facility] 10/19/2025 16:48:35
--- OUTSIDE RECORDS SUMMARY | 2025-10-19 20:37 | XMS_ITS | Clinical Summary ---
Author Organization [facility] Address [address] [address] Phone Care Team Providers Care Knife Sharpener Name Role Phone Randal Pinon Primary Care Provider [phone] Allergies Active Allergy Reactions Criticality Noted Date [...] his glucose levels. Up to date with [facility] Assessment & Plan (03/13/2024 11:48 PM EDT): [...] training Procedures: Glucose Monitoring: Type of Sensor: DexSymtavision G7 Instruction: Patient Instructed on:, Calibrations, When [...] Care Team Description 10/08/2025 Telephone [facility] [address] [place] [address] [place] [address] Mckenna Schwab MA CLINICAL NOTES 09/28/[address] [place] [address] Candace Meyers LDN Dexcom not connecting to phone (Dexcom not connecting to phone) 09/27/2025 11:03 AM EST - 09/27/2025 11:59 PM EST Hospital Encounter [address] [place] [address] Randal Pinon, DO Discharge Disposition: Home or Self Care 09/11/[address] [place] [address] Candace Meyers LDN Dexcom not connecting to phone (Dexcom not connecting to phone) 09/09/2025 10:00 AM EDT Nutrition [address] [place] [address] Jonna Whittington MD Dawicki, Jessica Jeanne, LDN Type 2 diabetes mellitus with stage 3b chronic kidney disease, with long-term current use of insulin (Primary Dx) 09/09/[address] [place] [address] Candace Meyers LDN 08/26/2025 Procedure Pass [address] [place] [address] 08/26/2025 Transcribe Orders Virtual Department [address] [place] [address] Randal Pinon DO Disorientation, unspecified (Primary Dx) 08/10/2025 2:32 PM EDT - 08/10/2025 11:59 PM EDT Hospital Encounter [facility] [address] [place] [address] Kendrick Argueta MD Discharge Disposition: Home or Self Care 08/10/2025 Transcribe Orders [facility] [address] [place] [address] Kendrick Argueta MD Vitamin D deficiency, unspecified (Primary Dx); Type 2 diabetes mellitus with stage 3b chronic kidney disease, with long-term current use of insulin 08/04/2025 3:00 PM EDT Nurse Only [facility] [address] [place] [address] Jonna Whittington MD Type 2 diabetes mellitus with stage 3b chronic kidney disease, with long-term current use of insulin (Primary Dx) 07/30/2025 Telephone [facility] [address] [place] [address] Enedelia Duncan, WILDER Dexcom issue (Dexcom issue); [...] Description 12/03/2025 10:00 AM EST Office Visit [facility] [address] [place] [address] Enedelia Duncan CNP [address] [place] [address], [address] [place] [address] 03/23/2026 11:00 AM EDT Nutrition [facility] [address] [place] [address] Candace Meyers, LDN [address] [facility], 1st [place] [address] [email or web address] Health Maintenance Due Date Last Done Comments [...] clinician's provided indication for this examination in [facility]:Outside Radiology Order; disorientation TECHNIQUE: MRI BRAIN WITHOUT [...] EDT) IRON 64 45 - 160 ug/dL [facility] Blood 08/10/2025 2:49 PM EDT 08/10/2025 2:51 PM EDT us Kendrick Argueta MD LAB BLOOD ORDERABLES Final Resul t [facility] [address] [place] [address] * (ABNORMAL) Renal panel (08/10/2025 2:49 PM EDT) SODIUM 139 133 - 146 mmol/L [facility] POTASSIUM 4.4 3.3 - 5.1 mmol/L [facility] CHLORIDE 107 96 - 108 mmol/L [facility] CO2 22 21 - 35 mmol/L [facility] GLUCOSE 151(H) 70 - 99 mg/dL [facility] BUN 47(H) 6 - 19 mg/dL [facility] CREATININE 1.90(H) 0.5 - 1.5 mg/dL [facility] CALCIUM 9.0 8.4 - 10.3 mg/dL [facility] PHOSPHORUS 3.2 2.7 - 4.5 mg/dL [facility] ALBUMIN 4.4 3.9 - 4.8 g/dL [facility] EGFR 34(L) >59 mL/min/1.7 3m2 [facility] Comment:Estimated glomerular filtration rate calculated using the CKD-EPI refit equation. ANION GAP 14 10 - 20 mmol/L [facility] Blood 08/10/2025 2:49 PM EDT 08/10/2025 2:51 PM EDT us Kendrick Argueta MD LAB BLOOD BKR ORDERABLES Final R esult Performing Organization Address City/[facility]/ZIP Co de Phone Number [address] [address] * Total protein, random urine (08/10/2025 2:49 PM EDT) URINE TOTAL PROTEIN 10.0 mg/dL [facility] Urine (Urine) 08/10/2025 2:4 9 PM EDT 08/10/2025 2:51 PM EDT us Kendrick rAgueta MD LAB URINE ORDERABLES Final Resul t Performing Organization Address [facility]/ZIP Co de Phone Number [address] [address] * (ABNORMAL) 25-OH vitamin D (08/10/2025 2:49 PM EDT) 25 OH VIT D (TOTAL) 70(H) 30 - 60 ng/mL [facility] Blood 08/10/2025 2:49 PM EDT 08/10/2025 2:51 PM EDT us Kendrick Argueta MD LAB BLOOD BKR ORDERABLES Final R esult Performing Organization Address [facility]/ZIP Co de Phone Number [address] [address] * (ABNORMAL) CBC (08/10/2025 2:49 PM EDT) WBC 7.10 4.00 - 11.00 K/uL [facility] RBC 4.13(L) 4.50 - 5.90 M/uL [facility] HGB 12.7(L) 13.5 - 17.5 g/dL [facility] HCT 39.0(L) 41.0 - 53.0 % [facility] PLT 191 150 - 450 K/uL [facility] MCV 94.4 80.0 - 100.0 fL [facility] MCH 30.8 27.0 - 31.0 pg [facility] MCHC 32.6 32.0 - 36.0 g/dL [facility] RDW 13.2 11.5 - 14.5 % [facility] MPV 9.3 8.4 - 12.0 fL [facility] NRBC 0.00 0.00 /100 WBCs [facility] ABSOLUTE NRBC 0.00 0.00 K/uL [facility] Blood 08/10/2025 2:49 PM EDT 08/10/2025 2:51 PM EDT Kendrick Argueta MD LAB BLOOD BKR ORDERABLES Final R esult Performing Organization Address City/[facility]/ZIP Co de Phone Number [address] [address] * Parathyroid hormone (PTH) (08/10/2025 2:49 PM EDT) PARATHYROID HORMONE 23 15 - 65 pg/mL [facility] Blood 08/10/2025 2:49 PM EDT 08/10/2025 2:50 PM EDT Kendrick Argueta MD LAB BLOOD BKR ORDERABLES Final R esult Performing Organization Address City/[facility] Co de Phone Number [address] [address] * (ABNORMAL) Hemoglobin A1c (08/10/2025 2:49 PM EDT) HEMOGLOBIN A1C 7.1(H) 4.3 - 5.8 % [facility] Blood 08/10/2025 2:49 PM EDT 08/10/2025 2:50 PM EDT us Kendrick Argueta MD LAB BLOOD BKR ORDERABLES Final R esult [address] [address] from Last 3 Months Insurance [facility] A & B [facility] POS EPO ([address] [address] MEDICARE PART A & B Member Subscriber Plan / Payer (Ef fective 2002-Present) Name:Max Rodriguez Member ID:[id number] Relation to Subscriber:Self Name:Max Rodriguez Subscriber ID:[id number] Payer ID:[id number] Group ID:Not on file Type:Medicare Address: [employer] [address] POS EPO MEDICARE PART A & B Member Subscriber Plan / Payer ( fective 2002-Present) Name:Max Rodriguez Member ID:[id number] Relation to Subscriber:Self Name:Max Rodriguez Subscriber ID:[id number] Payer ID:[id number] Group ID:Not on file Type:Medicare Address: [employer] [address] [place] [address] [place], [place] [address] POS EPO MEDICARE PART A & B [facility] POS EPO MEDICARE PART A & [facility] POS EPO MEDICARE PART A & B [facility] POS EPO MEDICARE PART A & [facility] POS EPO MEDICARE PART A & B [employer] POS EPO Care Teams Knife Sharpener Relationship Specialty Start Date End Date Randal Pinon DO [address] [place] [address] PCP - General Internal Medicine 08/05/25 Additional Source Comments The information contained in this document represents components of the legal health record. It is not the complete legal health record.[facility]
--- OUTSIDE RECORDS SUMMARY | 2025-10-19 20:37 | XMS_ITS | Encounter Summary ---
Author Organization [facility] Address [address] [place] [address] Phone Care Team Providers Care Cdl Flatbed Truck Driver Name Role Phone Randal Pinon DO Primary Care Provider [phone] Randal Pinon DO Primary Care Provider [phone] Encounter Details Date Type Department Care Team ([facility] st Contact Info) Description 02/25/2024 Transcribe Orders [facility] Phleb [address] 2nd [place] [address] Leigh Devine PA [address] [place] [address] [email or web address] Upper abdominal pain (Primary Dx) Social History [...] Description 12/03/2025 10:00 AM EST Office Visit [facility] [address] [address] Enedelia Duncan, WILDER 22 [facility], [address] [place] [address] 03/23/2026 11:00 AM EDT Nutrition [facility] [address] [address] Candace Meyers LDN [address] [address] documented as of this encounter Results * GGT (Gamma glutamyl transferase) (02/25/2024 11:54 AM EDT) GGT 26 11 - 51 U/L [facility] Blood 02/25/2024 11:5 4 AM EDT 02/25/2024 11:57 AM EDT Leigh PINK LAB BLOOD BKR ORDERABLES Final Result [address] [address] * (ABNORMAL) Comprehensive metabolic panel (02/25/2024 11:54 AM EDT) SODIUM 135 133 - 146 mmol/L [facility] POTASSIUM 4.6 3.3 - 5.1 mmol/L [facility] CHLORIDE 98 96 - 108 mmol/L [facility] CO2 27 21 - 35 mmol/L [facility] BUN 63(H) 6 - 19 mg/dL [facility] CREATININE 1.80(H) 0.5 - 1.5 mg/dL [facility] GLUCOSE 301(H) 70 - 99 mg/dL [facility] ALBUMIN 3.8(L) 3.9 - 4.8 g/dL [facility] TOTAL PROTEIN 6.5 6.5 - 8.0 g/dL [facility] CALCIUM 9.1 8.4 - 10.3 mg/dL [facility] ALKALINE PHOSPHATASE 109 39 - 117 U/L [facility] TOTAL BILIRUBIN 0.5 0.0 - 1.2 mg/dL [facility] AST 17 0 - 37 U/L [facility] ALT 18 0 - 40 U/L [facility] GLOBULIN 2.7 1 - 4.8 g/dL [facility] EGFR 36(L) >59 mL/min/1.7 3m2 [facility] Comment:Estimated glomerular filtration rate calculated using the CKD-EPI refit equation. ANION GAP 15 10 - 20 mmol/L [facility] Blood 02/25/2024 11:5 4 AM EDT 02/25/2024 11:57 AM EDT Leigh PINK LAB BLOOD BKR ORDERABLES Final Result [facility] [address] [place], [place] [id number] * (ABNORMAL) CBC (02/25/2024 11:54 AM EDT) WBC 6.65 4.00 - 11.00 K/uL [facility] RBC 3.62(L) 3.90 - 5.69 M/uL [facility] HGB 10.3(L) 12.4 - 17.3 g/dL [facility] HCT 32.4(L) 37.0 - 51.0 % [facility] PLT 182 140 - 430 K/uL [facility] MCV 89.5 78.0 - 97.0 fL [facility] MCH 28.5 25.0 - 33.0 pg [facility] MCHC 31.8(L) 32.0 - 36.0 g/dL [facility] RDW 14.4 11.0 - 15.0 % [facility] MPV 9.7 8.4 - 12.8 [facility] Blood 02/25/2024 11:5 4 AM EDT 02/25/2024 11:57 AM EDT Leigh PINK LAB BLOOD BKR ORDERABLES Final Result [facility] [address] [place] [address] documented in this encounter Visit Diagnoses Diagnosis Upper abdominal pain- Primary documented in this encounter Care Teams Cdl Flatbed Truck Driver Relationship Specialty Start Date End Date Randal Pinon DO [email or web address] PCP - General Internal Medicine 07/24/22 08/04/25 Randal Pinon DO [address] [place] [address] PCP - General Internal Medicine 08/05/25 documented as of this encounter Additional Source Comments The information contained in this document represents components of the legal health record. It is not the complete legal health record.[facility]
--- OUTSIDE RECORDS SUMMARY | 2025-10-19 20:37 | XMS_ITS | Encounter Summary ---
Author Organization [facility] Address [address] [facility] [address] [place] [address] Phone Care Team Providers Care Buckle Strap Drum Operator Name Role Phone Randal Pinon Primary Care Provider [phone] Encounter Details Date Type Department Care Team (Late st Contact Info) Description 09/09/2025 Telephone [facility] [address] [place] [address] Candace Meyers LDN [address] [facility], 1st [place] [address] Social History Tobacco Use Types Packs/Day Years [...] from the original note were not included. Grasyon Mcdaniels, Saw Max today. Time in range [...] Description 12/03/2025 10:00 AM EST Office Visit [facility] Diabetes [address] [address] Enedelia Duncan CNP [address] [place] [address] 03/23/2026 11:00 AM EDT Nutrition [facility] Diabetes [address] [address] Candace Meyers LDN [address] [place] [address] documented as of this encounter Visit Diagnoses Not on filedocumented in this encounter Care Teams Buckle Strap Drum Operator Relationship Specialty Start Date End Date Randal Pinon DO [address] [place] [address] PCP - General Internal Medicine 08/05/25 documented as of this encounter Additional Source Comments The information contained in this document represents components of the legal health record. It is not the complete legal health record.[facility]
--- OUTSIDE RECORDS SUMMARY | 2025-10-19 20:37 | XMS_ITS | Continuity of Care Document ---
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 Surgeries None recorded. Imaging None recorded. Medication Orders triamtere ne 37.5 mg-hydroc hlorothia zide 25 mg tablet 2024 025 [id number], [address] [place], [address], 10/19/2025 16:39:21 Patient TargetsNo targets recorded. Patient InstructionsNo instructions recorded. Reason for Referral Neurologist Referral for Unc [...] contr ast No observ ation record ed. [email or web address] [facility] [address] [place], [address], 10/05/2025 08:55:03 Result Notes None recorded. Problems Name Problem SNOMED Code Status Onset Date Resolution Date Notes Provider Name and Address Organization Details Recorded Time Type 2 diabetes mellitus 88509224 Active 2017 Randal Estrada, DO [address] [facility], [place], [address], [facility] 5 15:15:25 Neuropath y due to diabetes mellitus 726929617 Active 2017 Not Available [facility] 3 16:04:36 Essential hypertens ion 20229228 Active 2017 Not Available [facility] 3 16:04:36 Hyperchol esterolem ia 13521746 Active 2017 Not Available [facility] 3 16:04:35 Chronic kidney disease 016983178 Active 2017 Stage 3 Not Available [facility] 3 16:04:36 Melena 0076344 Active 2021 Not Available [facility] 3 16:04:36 Dysuria 45045722 Active 2021 Not Available [facility] 3 16:04:36 Chronic kidney disease stage 3 270754536 Active 2022 Not Available [facility] 3 16:04:36 Cholecyst itis 66908566 Active 2023 APRYL SPRAGUE [address] [place] [address], [address], [facility] 4 11:59:49 Gastritis 7653469 Active 2023 APRYL SPRAGUE [address] [place] [address], [address], [facility] 4 12:04:13 Diarrhea 45187979 Active 2023 APRYL SPRAGUE [address] [place] [address], [address], [facility] 4 13:44:52 Depressiv e disorder 34702476 Active 2023 Randal Estrada DO [address] [place] [address], [address], [facility] 4 10:36:59 Dupuytren 's contractu re of finger 307633364 Active 2023 Randal Estrada DO [address] [place] [address], [address], [facility] 4 11:05:22 Dermatoph ytosis 79717185 Active 2023 Randal Estrada DO [address] [place] [address], [address], [facility] 4 11:02:32 Osteoarth ritis of right knee joint 611034261775 100 Active 2024 Randal Estrada DO [address] [place] [address], [address], [facility] 5 10:34:03 Onychomyc osis of toenails 731502863 Active 2024 Randal Amaya DO Kathrin [address] [place] [address], [address], [facility] Internal [facility] 5 12:27:18 Disorient ated 29396065 Active 2024 Randal Amaya DO Kathrin [address] [place] [address], [address], [facility] 15:16:40 Confusion al state 781420323 Active 2024 Randal Amaya Kathrin [address], [address], [facility] 16:31:31 Keshav hematuria 675511703 Active 2024 Randal Mejiaadolfo [address], [address], [facility] 5 13:36:11 Uncompens ated short term memory deficit 41224338 Active 2024 Randal Estrada [address], [address], [facility] 16:40:52 Notes:Some problems listed i n Documents: #[id number], #[id number], #[id number], #[id number], #[id number], #[id number], #[id number], #[id number], #[id number] could not be added to this patient's [...] n cough Not available Not available 02/20/2018 72631 [facility] 8 13:34:23 9838 loratadin e medicatio n other Not available Not available 10/14/20252019 93191 RxNorm Not Available brandon - External Data [...] TO 2 WEEKS NEEDED FOR ITCH, AVOID MACEIL AND GROIN active Not Available Not Available [...] Not Available Not Available No t Available FreeGive[employer] Flash System kit active Not Available Not [...] Not Available Not Available FreeStyle Gilberto 2 [place] Use as directed . 10/19 completed Not Available Not Available Not Available Fluzone High-Dose Quad 2020- (PF) 240 mcg/0.7 mL IM syringe PHARMACY [...] Updated DateTime 5 170.18 cm 28.6 kg/m2 23046.9 7 g 68 /min 99 % 138/60 mm[Hg] [facility] 5 16:16:49 Social History Question Answer Notes LastModified by Organizat ion Details LastModified Time Tobacco Smoking Status Former Smoker Not Available [facility] 09/28/2020 03:36:24 What Was The Date Of Your Most Recent Tobacco Screening? 10/19/2025 [email or web address] Information not available 10/19/2025 How Many Years Have You Smoked Tobacco? 50 [id number] Information not available 09/28/2020 Sex: Unknown Functional Status Question Answer Note LastModified by Organization D etails LastModified Time Do you or have you ever used any other forms of tobacco or nicotine? No [email or web address] Information not available 08/20/2023 Mental Status None [...] zoster recombinant 5 completed Not Available [facility] 08/06/2023 16:05:00 Influenza, split virus, quadrivalent, preservative 8 completed Not Available [facility] 08/06/2023 16:05:00 COVID-19, mRNA, LNP-S, PF, 30 mcg/0.3 mL dose 1 completed Not Available [facility] 08/06/2023 16:05:00 Influenza, split virus, quadrivalent, preservative 1 completed Not Available [facility] 08/06/2023 16:05:00 COVID-19, mRNA, LNP-S, PF, 30 mcg/0.3 mL dose 2 completed Not Available [facility] 08/06/2023 16:05:00 influenza, unspecified formulation 2 completed Not Available [facility] 08/06/2023 16:05:00 zoster, unspecified formulation 4 completed Randal Estrada DO [address] [place], [address], [facility] 05/11/2024 08:53:32 influenza, unspecified formulation 5 completed GAIL ag [facility] 08/28/2025 13:20:35 Influenza, split virus, quadrivalent, preservative 9 completed Not Available [facility] 08/06/2023 16:05:00 Influenza, split virus, quadrivalent, preservative 0 completed Not Available [facility] 08/06/2023 16:05:00 COVID-19, mRNA, LNP-S, PF, 30 mcg/0.3 mL dose 1 completed Not Available [facility] 08/06/2023 16:05:00 COVID-19, mRNA, LNP-S, PF, 30 mcg/0.3 mL dose 1 completed Not Available [facility] 08/06/2023 16:05:00 Past Encounters Encounter ID Performer Location Encounter Start Date Encounter Closed Date Diagnosis/Indication Diagnosis SNOMED-CT Code Diagnosis ICD10 Code Diagnosis IMO Codes Diagnosis Note [id number] Randal Estrada DO [facility] [address] [facility],[place] [address] 09/25/2025 15:56:22 09/28/2025 08:47:40 Depression screening 245243447 Z13.31 stable Essential hypertension 19426882 I10 BP is stable on the metoprolol cont current meds Type 2 damaris betes mellitus 17873511 E11.22 A1C is 7.1 off jardiance Continue to work on diet and will keep walking daily through endocrinol ogyno major issues except he is followed by endocrinst aying active, walks with but not as much due to the weather Confusional state 979526 003 R41.0 33973 stopping the jardiance did not help bp are low normal and will have him wean off beta allen to see if some of the confusion gets better rechk in a couple weeks [id number] Randal Estrada, [facility] Internal [facility] [address] [facility] [address] [facility] [address],Shellie [place] [address] 10/19/2025 16:08:58 10/19/2025 16:48:58 Depression screening 914346770 Z13.31 stable Essential hypertension 40310368 I10 will try dyazide cont to stay off the metoprolol cont current meds Hypercholesterolemia 136 32899 E78.00 will be checking in a few months but we feels he is doing good Type 2 damaris betes mellitus 43162877 E11.22 A1C is 7.1 off jardiance Continue to work on diet and will keep walking daily through endocrinol ogyno major issues except he is followed by endocrinst aying active, walks with but not as much due to the weather Uncompensa elaina short term memory deficit 57554524 R41.3 [id number] Health Concerns Section Related Observation LastModified by Organization Detai ls LastModified Time None Recorded Concern Status LastModified by Organization Details LastModified Time None Recorded Payers Encounter Date Sequence Insurance Name Policy Number Policy Adams Covered Member ID Adams Member ID Guarantor Name 10/19/2025 1 MEDICARE [place]: [facility] [employer] Max Rodriguez [id number] Max Rodriguez 10/19/2025 2 [employer] - [employer] BENEFIT PLAN (PPO) [id number] Max Rodriguez [id number] Max Rodriguez Notes Date Note Type Note Provider Name and Address Organization Details Recorded Time 10/19/20 25 text/htm l Care Management - [...] worse at nightnot hungry at times Randal Estrada, [address] [facility], [place], [address], [facility] 10/19/2025 16:48:35
--- OUTSIDE RECORDS SUMMARY | 2025-10-19 20:37 | XMS_ITS | Continuity of Care Document ---
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 Referral None recorded . Procedures None recorded . Surgeries None recorded . Imaging None recorded . Medication Orders None recorded . Patient TargetsNo targets recorded. Patient Instructions Encounter Date Encounter Id Patient Instructions Last Modified By Organization Details Last Modified Time 09/25/2025 [id number] learning about type 2 diabetes Not available 09/25/2025 16:33:46 type 2 diabetes: care instructions Not available 09/25/2025 16:33:46 Reason for Referral None Reported. Results Created Date Observation Date Name Description Value Unit Range Abnormal Flag Note LastModifiedBy Organization Detail LastModifiedTime 09/29/2009/27/2025 MRI, brain , w/o contr ast No observ ation record ed. [facility] [address] [place], [address], 10/05/2025 08:55:03 Result Notes None recorded. Problems Name Problem SNOMED Code Status Onset Date Resolution Date Notes Provider Name and Address Organization Details Recorded Time Type 2 diabetes mellitus 23736605 Active 2017 Randal Estrada DO [address] [place], [address], [facility] 5 15:15:25 Neuropath y due to diabetes mellitus 745560300 Active 2017 Not Available [facility] 3 16:04:36 Essential hypertens ion 94315532 Active 2017 Not Available [facility] 3 16:04:36 Hyperchol esterolem ia 91232982 Active 2017 Not Available [facility] 3 16:04:35 Chronic kidney disease 267280832 Active 2017 Stage 3 Not Available [facility] 3 16:04:36 Melena 2487105 Active 2021 Not Available [facility] 3 16:04:36 Dysuria 65020412 Active 2021 Not Available [facility] 3 16:04:36 Chronic kidney disease stage 3 465525385 Active 2022 Not Available [facility] 3 16:04:36 Cholecyst itis 24812342 Active 2023 APRYL SPRAGUE [address] [place], [address], [facility] 4 11:59:49 Gastritis 9997671 Active 2023 APRYL SPRAGUE [address] [place] [address], [address], [facility] 4 12:04:13 Diarrhea 75764809 Active 2023 APRYL SPRAGUE [address] [place] [address], [address], [facility] 4 13:44:52 Depressiv e disorder 05953999 Active 2023 Randal Estrada, DO [address] [place] [address], [address], [facility] 4 10:36:59 Dupuytren 's contractu re of finger 068786794 Active 2023 Randal Estrada DO [address] [place] [address], [address], [facility] 4 11:05:22 Dermatoph ytosis 51371254 Active 2023 Randal Estrada DO [address] [place] [address], [address], [facility] 4 11:02:32 Osteoarth ritis of right knee joint 342491475804 100 Active 2024 Randal Estrada DO [address] [place] [address], [address], [facility] 5 10:34:03 Onychomyc osis of toenails 442705124 Active 2024 Randal Estrada DO [address] [place] [address], [address], [facility] 5 12:27:18 Disorient ated 07973265 Active 2024 Randal Estrada DO [address] [place] [address], [address], [facility] 5 15:16:40 Confusion al state 122580426 Active 2024 Randal Estrada DO [address] [place] [address], [address], [facility] 16:31:31 Keshav hematuria 194871738 Active 2024 Randal Estrada, DO [address] [place] [address], [address], [facility] 5 13:36:11 Uncompens ated short term memory deficit 18433767 Active 2024 Randal Estrada, DO [address] [place], [address], [facility] 5 16:40:52 Notes:Some problems listed i n Documents: #[id number], #[id number], #[id number], #[id number], #[id number], #[id number], #[id number], #[id number], #[id number] could not be added to this patient's [...] n cough Not available Not available 02/20/2018 86834 [facility] 8 13:34:23 9838 loratadin e medicatio n other Not available Not available 10/14/20252019 72413 RxNorm Not Available brandon - External Data Service - prod 14:41:44 Medications Name Sig Start Date Stop [...] Not Available Not Available [employer] Gilberto 2 [place] Use as directed . 10/19 completed Not [...] Updated DateTime 5 170.18 cm 27.8 kg/m2 36125.7 2 g 94 % 62 /min 124/70 mm[Hg] GAIL CEDILLO [facility] 5 16:13:43 Social History Question Answer Notes LastModified by Organizat ion Details LastModified Time Tobacco Smoking Status Former Smoker Not Available [facility] 09/28/2020 03:36:24 What Was The Date Of Your Most Recent Tobacco Screening? 10/19/2025 [email or web address] Information not available 10/19/2025 How Many Years Have You Smoked Tobacco? 50 [id number] Information not available 09/28/2020 Sex: Unknown Functional Status Question Answer Note LastModified by Organization D etails LastModified Time Do you or have you ever used any other forms of tobacco or nicotine? No [email or web address] Information not available 08/20/2023 Mental Status None [...] Time zoster recombinant 5 completed Not Available [facility] 08/06/2023 16:05:00 Influenza, split virus, quadrivalent, preservative 8 completed Not Available [facility] 08/06/2023 16:05:00 COVID-19, mRNA, LNP-S, PF, 30 mcg/0.3 mL dose 1 completed Not Available [facility] 08/06/2023 16:05:00 Influenza, split virus, quadrivalent, preservative 1 completed Not Available [facility] 08/06/2023 16:05:00 COVID-19, mRNA, LNP-S, PF, 30 mcg/0.3 mL dose 2 completed Not Available [facility] 08/06/2023 16:05:00 influenza, unspecified formulation 2 completed Not Available [facility] 08/06/2023 16:05:00 zoster, unspecified formulation 4 completed Randal Estrada, DO [address] [facility], [place], [address], [facility] 05/11/2024 08:53:32 influenza, unspecified formulation 5 completed GAIL ag [facility] 08/28/2025 13:20:35 Influenza, split virus, quadrivalent, preservative 9 completed Not Available [facility] 08/06/2023 16:05:00 Influenza, split virus, quadrivalent, preservative 0 completed Not Available [facility] 08/06/2023 16:05:00 COVID-19, mRNA, LNP-S, PF, 30 mcg/0.3 mL dose 1 completed Not Available [facility] 08/06/2023 16:05:00 COVID-19, mRNA, LNP-S, PF, 30 mcg/0.3 mL dose 1 completed Not Available [facility] 08/06/2023 16:05:00 Past Encounters Encounter ID Performer Location Encounter Start Date Encounter Closed Date Diagnosis/Indication Diagnosis SNOMED-CT Code Diagnosis ICD10 Code Diagnosis IMO Codes Diagnosis Note [id number] Randal Estrada [facility] [address] [facility],[place] [address] 08/26/2025 14:33:32 08/26/2025 16:37:28 Depression screening 772995995 Z13.31 stable Essential hypertension 67742845 I10 BP is stable on the metoprolol cont current meds Type 2 damaris betes mellitus 62125052 E11.22 A1C is 7.1 was 8.7 last visit a1c now is pending Continue to work on diet and will keep walking daily through endocrinol ogyno major issues except he is followed by endocrinst khanh larios, walks with but not as much due to the weather Disorientated 72530142 R 41.0 702432 noted to be having signif difficulty [id number] Randal Estrada [facility] [address] [facility],[place] [address] 09/25/2025 15:56:22 09/28/2025 08:47:40 Depression screening 598287080 Z13.31 stable Essential hypertension 77178604 I10 BP is stable on the metoprolol cont current meds Type 2 damaris betes mellitus 04090981 E11.22 A1C is 7.1 off jardiance Continue to work on diet and will keep walking daily through endocrinol ogyno major issues except he is followed by endocrinst khanh larios, walks with but not as much due to the weather Confusional state 901952 003 R41.0 44760 stopping the jardiance did not help bp [...] Member ID Adams Member ID Guarantor Name 09/25/2025 1 [place]ICARE B-[place]: [employer] Max Rodriguez [id number] Max Rodriguez 09/25/2025 2 [employer] - MAIL [employer] BENEFIT PLAN (PPO) [id number] Max Rodriguez [id number] 1 Max Rodriguez Notes Date Note Type Note Provider Name a nd Address Organization Details Recorded Time 09/25/2025 text/html ROS as noted in the HPI here for rechk he is still fatigued and not motivated confusion is still presentand relates worse at nightnot hungry at times Randal Estrada, [address] [facility], [place], [address], [facility] 09/25/2025 16:34:08
--- OUTSIDE RECORDS SUMMARY | 2025-10-19 20:38 | XMS_ITS | Continuity of Care Document ---
Author Organization [facility] Address [address] [facility] [place] [address] [place] [address] Assessment Encounter Date Assessment Date Assessment LastModified by Organization Details LastModified Time 08/26/2025 08/26/2025 [id number] [place] [id number] (FERMENTER WINE) MDM MODERATE MUST MEET 2 OUT OF [...] THAT IS COVERED Not available 08/26/2025 15:12:12 Plan of Treatment Reminders Order Date Submit Date Provider Last Modified By Organization Details Last Modified Time Details Appointments FOLLOW UP 15 2024 04:15P M DR ESTRADA Not available Not available Not available FOLLOW UP 15 20[address] 09:[address] M [address] ESTRADA Not available Not available Not available FOLLOW UP 15 2024 10:15A M DR ESTRADA Not available Not available Not available Lab None recorded. Referral None recorded. Procedures None recorded. Surgeries None recorded. Imaging MRI, brain, w/o contrast 2024 10 025 [facility] Central Scheduling (Not Breast), [address] [place], [address], 08/28/2025 08:41:16 Medication Orders None recorded. Patient TargetsNo targets recorded. Patient InstructionsNo instructions recorded. Reason for Referral None Reported. Results Created Date Observation Date Name Description Value Unit Range Abnormal Flag Note LastModifiedBy Organization Detail LastModifiedTime 09/29/2009/27/2025 MRI, brain , w/o contr ast No observ ation record ed. [email or web address], [address], 10/05/2025 08:55:03 Result Notes None recorded. Problems Name Problem SNOMED Code Status Onset Date Resolution Date Notes Provider Name and Address Organization Details Recorded Time Type 2 diabetes mellitus 60721170 Active 2017 Randal Estrada DO [address] [place] [address], [address], [facility] 5 15:15:25 Neuropath y due to diabetes mellitus 323135685 Active 2017 Not Available [facility] 3 16:04:36 Essential hypertens ion 70745663 Active 2017 Not Available [facility] 3 16:04:36 Hyperchol esterolem ia 00898308 Active 2017 Not Available [facility] 3 16:04:35 Chronic kidney disease 620592916 Active 2017 Stage 3 Not Available [facility] 3 16:04:36 Melena 8979869 Active 2021 Not Available [facility] 3 16:04:36 Dysuria 23536012 Active 2021 Not Available [facility] 3 16:04:36 Chronic kidney disease stage 3 938004871 Active 2022 Not Available [facility] 3 16:04:36 Cholecyst itis 04532718 Active 2023 APRYL SPRAGUE [address] [place] [address], [address], [facility] 4 11:59:49 Gastritis 2456332 Active 2023 APRYL SPRAGUE [address] [place] [address], [address], [facility] 4 12:04:13 Diarrhea 71801539 Active 2023 APRYL SPRAGUE [address] [place] [address], [address], [facility] 4 13:44:52 Depressiv e disorder 50675756 Active 2023 Randal Estrada, DO [address] [place] [address], [address], [facility] 4 10:36:59 Dupuytren 's contractu re of finger 753266656 Active 2023 Randal Estrada DO [address] [place] [address], [address], [facility] 4 11:05:22 Dermatoph ytosis 93792829 Active 2023 Randal Estrada [address], [address], [facility] 4 11:02:32 Osteoarth ritis of right knee joint 174793069458 100 Active 2024 Randal Estrada DO [address] [place] [address], [address], [facility] 5 10:34:03 Onychomyc osis of toenails 982741628 Active 2024 Randal Estrada DO [address] [place] [address], [address], [facility] 5 12:27:18 Disorient ated 05296548 Active 2024 Randal Estrada DO [address] [place] [address], [address], [facility] 5 15:16:40 Confusion al state 502338170 Active 2024 Randal Estrada DO [address] [place] [address], [address], [facility] 16:31:31 Keshav hematuria 946887816 Active 2024 Randal Estrada, DO [address] [place] [address], [address], [facility] 13:36:11 Uncompens ated short term memory deficit 47134192 Active 2024 Randal Estrada, DO [address] [place], [address], [facility] 16:40:52 Notes:Some problems listed i n Documents: #[id number], #[id number], #[id number], #[id number], #[id number], #[id number], #[id number], #[id number], #[id number] could not be added to this patient's [...] n cough Not available Not available 02/20/2018 41190 [facility] 8 13:34:23 9838 loratadin e medicatio n other Not available Not available 10/14/20252019 34273 RxNorm Not Available brandon - External Data [...] TO 2 WEEKS NEEDED FOR ITCH, AVOID AMCIEL AND GROIN active Not Available Not Available [...] Not Available Not Available [employer] Gilberto 2 [place] Use as directed . 10/19 completed Not [...] Updated DateTime 5 170.18 cm 27.4 kg/m2 38127.6 6 g 62 /min 98 % 128/84 mm[Hg] Ingrid Holden [facility] 5 14:45:30 Social History Question Answer Notes LastModified by Organizat ion Details LastModified Time Tobacco Smoking Status Former Smoker Not Available [facility] 09/28/2020 03:36:24 What Was The Date Of Your Most Recent Tobacco Screening? 10/19/2025 [email or web address] Information not available 10/19/2025 How Many Years Have You Smoked Tobacco? 50 [id number] Information not available 09/28/2020 Sex: Unknown Functional Status Question Answer Note LastModified by Organization D etails LastModified Time Do you or have you ever used any other forms of tobacco or nicotine? No [email or web address] Information not available 08/20/2023 Mental Status None [...] Time zoster recombinant 5 completed Not Available [facility] 08/06/2023 16:05:00 Influenza, split virus, quadrivalent, preservative 8 completed Not Available [facility] 08/06/2023 16:05:00 COVID-19, mRNA, LNP-S, PF, 30 mcg/0.3 mL dose 1 completed Not Available [facility] 08/06/2023 16:05:00 Influenza, split virus, quadrivalent, preservative 1 completed Not Available [facility] 08/06/2023 16:05:00 COVID-19, mRNA, LNP-S, PF, 30 mcg/0.3 mL dose 2 completed Not Available [facility] 08/06/2023 16:05:00 influenza, unspecified formulation 2 completed Not Available [facility] 08/06/2023 16:05:00 zoster, unspecified formulation 4 completed Randal Estrada, DO [address] [facility], [place], [address], [facility] 05/11/2024 08:53:32 influenza, unspecified formulation 5 completed GAIL ag [facility] 08/28/2025 13:20:35 Influenza, split virus, quadrivalent, preservative 9 completed Not Available [facility] 08/06/2023 16:05:00 Influenza, split virus, quadrivalent, preservative 0 completed Not Available [facility] 08/06/2023 16:05:00 COVID-19, mRNA, LNP-S, PF, 30 mcg/0.3 mL dose 1 completed Not Available [facility] 08/06/2023 16:05:00 COVID-19, mRNA, LNP-S, PF, 30 mcg/0.3 mL dose 1 completed Not Available [facility] 08/06/2023 16:05:00 Past Encounters Encounter ID Performer Location Encounter Start Date Encounter Closed Date Diagnosis/Indication Diagnosis SNOMED-CT Code Diagnosis ICD10 Code Diagnosis IMO Codes Diagnosis Note [id number] Radnal Estrada DO [facility] [address] [facility],[place] [address] 08/26/2025 14:33:32 08/26/2025 16:37:28 Depression screening 065406070 Z13.31 stable Essential hypertension 75834460 I10 BP is stable on the metoprolol cont current meds Type 2 damaris betes mellitus 04017154 E11.22 A1C is 7.1 was 8.7 last visit a1c now is pending Continue to work on diet and will keep walking daily through endocrinol ogaltheao major issues except he is followed by endocrinst khanh active, walks with but not as much due to the weather Disorientated 83065556 R 41.0 889803 noted to be having signif difficulty Health Concerns Section Related Observation LastModified by Organization Detai ls LastModified Time None Recorded Concern Status LastModified by Organization Details LastModified Time None Recorded Payers Encounter Date Sequence Insurance Name Policy Number Policy Adams Covered Member ID Adams Member ID Guarantor Name 08/26/2025 1 [place]IC[place] [employer] Max Rodriguez [id number] Max Rodriguez 08/26/2025 2 [employer] - MAIL [employer]LERS BENEFIT PLAN (PPO) [id number] Max Rodriguez [id number] Max Rodriguez Notes Date Note Type Note Provider Name and Address Organization Details Recorded Time 5 text/htm l Care Management - HypertensionReported by [...] but is still remembering to do bills ana no longer watching the ipadnot reading Randal Estrada, DO [address] [facility], [place], [address], [facility] 08/26/2025 15:18:43
--- OUTSIDE RECORDS SUMMARY | 2025-10-19 20:38 | XMS_ITS | Encounter Summary ---
Author Organization [facility] Address [address] [facility] [address] [place] [address] Phone Care Team Providers Care Gift Officer Name Role Phone Randal Pinon DO Primary Care Provider [phone] JackieRandal mata DO Primary Care Provider [phone] Encounter Details Date Type Department Care Team (Late st Contact Info) Description 06/06/2024 Procedure Pass [facility]oscopy Admitting Dept Virtual Department [address] [place] [address] Social History Tobacco Use Types Packs/Day Years [...] 12/03/2025 10:00 AM EST Office Visit [facility] Diabetes [address] [address] Enedelia Duncan, SCALLOP CUTTER MACHINE [address] [place] [address] 03/23/2026 11:00 AM EDT Nutrition [address] [address] Candace Meyers, LDN [address] [place] [address] documented as of this encounter Visit Diagnoses Not on filedocumented in this encounter Care Teams Gift Officer Relationship Specialty Start Date End Date Randal Pinon DO PCP - General Internal Medicine 07/24/22 08/04/25 Randal Pinon DO [address] [place] [address] PCP - General Internal Medicine 08/05/25 documented as of this encounter Additional Source Comments The information contained in this document represents components of the legal health record. It is not the complete legal health record.[facility]
--- OUTSIDE RECORDS SUMMARY | 2025-10-19 20:38 | XMS_ITS | Encounter Summary ---
Author Organization [facility] Address [address] [facility] [address] [place] [address] Phone Care Team Providers Care Supervisor Agency Appointments Name Role Phone Randal Pinon Primary Care Provider [phone] JackieRandal mata DO Primary Care Provider [phone] Encounter Details Date Type Department Care Team (Late st Contact Info) Description 02/02/2024 Procedure Pass [facility], Ct Scan - [address] [address] Social History Tobacco Use Types Packs/Day Years [...] Description 12/03/2025 10:00 AM EST Office Visit [facility] [address] [place] [address] Enedelia Duncan, STRAIGHT CUTTER MACHINE [address] [facility], [address] [place] [address] 03/23/2026 11:00 AM EDT Nutrition [facility] [address] [address] Candace Meyers, DANGELON [address] [facility], [address] [place] [address] documented as of this encounter Visit Diagnoses Not on filedocumented in this encounter Care Teams Supervisor Agency Appointments Relationship Specialty Start Date End Date Randal Pinon DO PCP - General Internal Medicine 07/24/22 08/04/25 Randal Pinon DO [address] [place] [address] PCP - General Internal Medicine 08/05/25 documented as of this encounter Additional Source Comments The information contained in this document represents components of the legal health record. It is not the complete legal health record.[facility]
== END 2025-10-19 18:47 | disposition home or self-care (01) ==
LOC: HO.LNP 18:46
PROVIDERS: Visit Provider Internal Medicine
DX: R31.0 Gross hematuria (principal)
CPT/HCPCS: 88112

== ENCOUNTER 2025-11-02 14:12 | Outpatient (REF) | payer MEDICARE, OTHER, SELFPAY ==
[2025-11-02 18:50] LABS: Anion Gap 15 (12-20); Blood Urea Nitrogen 81 mg/dL (9-16); Calcium 9.1 mg/dL (8.4-10.2); Carbon Dioxide 26 mmol/L (22-29); Chloride 99 mmol/L (96-108); Estimated Glomerular Filt Rate 28; Potassium 4.5 mmol/L (3.3-5.1); Sodium 135 mmol/L (135-145)
--- OUTSIDE RECORDS SUMMARY | 2025-11-02 23:07 | XMS_ITS | Continuity of Care Document ---
Author Organization [facility] Address [address] [facility] [place] [address] [place] [address] Assessment Encounter Date Assessment Date Assessment LastModified by Organization Details LastModified Time 09/25/2025 09/25/2025 [id number] [place] [id number] (VIDEO NEWS EDITOR) MDM MODERATE MUST MEET 2 OUT OF [...] Time Details Appointments FOLLOW UP 15 2024 10:15A M DR ESTRADA Not available Not available Not available Lab None recorded . Referral None recorded . Procedures None recorded . Surgeries None recorded . Imaging None recorded . Medication Orders None recorded . Patient TargetsNo targets recorded. Patient Instructions Encounter Date Encounter Id Patient Instructions Last Modified By Organization Details Last Modified Time 09/25/2025 [id number] learning about type 2 diabetes Not available 09/25/2025 16:33:46 type 2 diabetes: care instructions Not available 09/25/2025 16:33:46 Reason for Referral None Reported. Results Created Date Observation Date Name Description Value Unit Range Abnormal Flag Note LastModifiedBy Organization Detail LastModifiedTime 09/29/2009/27/2025 MRI, brain , w/o contr ast No observ ation record ed. [email or web address] [address], [address], 10/05/2025 08:55:03 Result Notes None recorded. Problems Name Problem SNOMED Code Status Onset Date Resolution Date Notes Provider Name and Address Organization Details Recorded Time Type 2 diabetes mellitus 08183959 Active 2017 Randal Estrada, DO [address] [place], [address], [facility] 5 15:15:25 Neuropath y due to diabetes mellitus 474061681 Active 2017 Not Available [facility] 3 16:04:36 Essential hypertens ion 94285939 Active 2017 Not Available [facility] 3 16:04:36 Hyperchol esterolem ia 72083450 Active 2017 Not Available [facility] 3 16:04:35 Chronic kidney disease 496798051 Active 2017 Stage 3 Not Available [facility] 3 16:04:36 Melena 2155230 Active 2021 Not Available [facility] 3 16:04:36 Dysuria 39291544 Active 2021 Not Available [facility] 3 16:04:36 Chronic kidney disease stage 3 485428979 Active 2022 Not Available [facility] 3 16:04:36 Cholecyst itis 06055011 Active 2023 APRYL SPRAGUE [address] [place], [address], [facility] 4 11:59:49 Gastritis 2361979 Active 2023 APRYL SPRAGUE [address] [place], [address], [facility] 4 12:04:13 Diarrhea 80370673 Active 2023 APRYL SPRAGUE [address] [place] [address], [address], [facility] 4 13:44:52 Depressiv e disorder 86501849 Active 2023 Randal Estrada, DO [address] [place] [address], [address], [facility] 4 10:36:59 Dupuytren 's contractu re of finger 717046523 Active 2023 Randal VelázquezMele Estrada, DO [address] [place] [address], [address], [facility] 4 11:05:22 Dermatoph ytosis 66340274 Active 2023 Randal VelázquezMele Estrada DO [address] [place] [address], [address], [facility] 4 11:02:32 Osteoarth ritis of right knee joint 069935170097 100 Active 2024 Randal EberMele Estrada DO [address] [place] [address], [address], [facility] 5 10:34:03 Onychomyc osis of toenails 572389067 Active 2024 Randal Estrada DO [address] [place] [address], [address], [facility] 5 12:27:18 Disorient ated 46749897 Active 2024 Randal Estrada, DO [address] [place] [address], [address], [facility] 5 15:16:40 Confusion al state 300604782 Active 2024 Randal Estrada DO [address] [place] [address], [address], [facility] 5 16:31:31 Keshav hematuria 819399029 Active 2024 Randal Estrada DO [address] [place] [address], [address], [facility] 13:36:11 Uncompens ated short term memory deficit 22845189 Active 2024 Randal Estrada DO [address] [place] [address], [place], [address], [facility] 5 16:40:52 Suraj saravia 356743004 Active 2024 APRYL SPRAGUE [address] [place] [address], [address], [facility] 10:47:16 Dementia with behaviora l disturban ce 287784582883 3 Active 2024 APRYL SPRAGUE [address] [place] [address], [address], [facility] 10:47:34 Notes:Some problems listed i n Documents: #[id number], #[id number], #[id number], #[id number], #[id number], #[id number], #[id number], #[id number], #[id number] could not be added to this patient's [...] n cough Not available Not available 02/20/2018 24434 [facility] 8 13:34:23 9838 loratadin e medicatio n other Not available Not available 10/14/20252019 83925 RxNorm Not Available brandon - External Data Service - prod 14:41:44 Medications Name Sig Start Date Stop Date Status Note LastModified by Organization Details LastModified Time quetiapine 25 mg tablet Take 1 tablet every day by oral route for 30 days. 2024 active Not Available Not Available Not Avai lable sildenafil 50 mg tablet TAKE 1 TABLET [...] 37.5 mg-hydroch lorothiazi de 25 mg tablet TAKE 1 TABLET BY MOUTH EVERY DAY FOR 30 DAYS active Not Available Not Available No t Available mirtazapin e 15 mg tablet TAKE 1 TABLET BY MOUTH EVERY DAY FOR 30 DAYS 08/265 completed Not Available Not Available Not Available [...] Not Available Not Available No t Available Geniuzz Flash System kit active Not Available Not [...] completed Not Available Not Available Not Available [facility]he[facility] KevinSebastián U-100 Insulin 100 unit/mL (3 mL) subcutaneo [...] Not Available Not Available FreeStyle Gilberto 2 Thrall Use as directed . 10/19 completed Not [...] Updated DateTime 5 170.18 cm 27.8 kg/m2 53517.7 2 g 94 % 62 /min 124/70 mm[Hg] [facility] 5 16:13:43 Social History Question Answer Notes LastModified by Organizat ion Details LastModified Time Tobacco Smoking Status Former Smoker Not Available [facility] 09/28/2020 03:36:24 What Was The Date Of Your Most Recent Tobacco Screening? 10/26/2025 [email or web address] Information not available 10/26/2025 How Many Years Have You Smoked Tobacco? 50 [id number] Information not available 09/28/2020 Sex: Unknown Functional Status Question Answer Note LastModified by Organization D etails LastModified Time Do you or have you ever used any other forms of tobacco or nicotine? No [email or web address] Information not available 08/20/2023 Mental Status None [...] Time zoster recombinant 5 completed Not Available [facility] 08/06/2023 16:05:00 Influenza, split virus, quadrivalent, preservative 8 completed Not Available [facility] 08/06/2023 16:05:00 COVID-19, mRNA, LNP-S, PF, 30 mcg/0.3 mL dose 1 completed Not Available [facility] 08/06/2023 16:05:00 Influenza, split virus, quadrivalent, preservative 1 completed Not Available [facility] 08/06/2023 16:05:00 COVID-19, mRNA, LNP-S, PF, 30 mcg/0.3 mL dose 2 completed Not Available [facility] 08/06/2023 16:05:00 influenza, unspecified formulation 2 completed Not Available [facility] 08/06/2023 16:05:00 zoster, unspecified formulation 4 completed Randal Estrada, DO [address] [place], [address], [facility] 05/11/2024 08:53:32 influenza, unspecified formulation 5 completed GAIL ag [facility] 08/28/2025 13:20:35 Influenza, split virus, quadrivalent, preservative 9 completed Not Available [facility] 08/06/2023 16:05:00 Influenza, split virus, quadrivalent, preservative 0 completed Not Available [facility] 08/06/2023 16:05:00 COVID-19, mRNA, LNP-S, PF, 30 mcg/0.3 mL dose 1 completed Not Available [facility] 08/06/2023 16:05:00 COVID-19, mRNA, LNP-S, PF, 30 mcg/0.3 mL dose 1 completed Not Available [facility] 08/06/2023 16:05:00 Past Encounters Encounter ID Performer Location Encounter Start Date Encounter Closed Date Diagnosis/Indication Diagnosis SNOMED-CT Code Diagnosis ICD10 Code Diagnosis IMO Codes Diagnosis Note [id number] Randal Estrada [facility] [address] [facility] [address] 08/26/2025 14:33:32 08/26/2025 16:37:28 Depression screening 785604019 Z13.31 stable Essential hypertension 76357460 I10 BP is stable on the metoprolol cont current meds Type 2 damaris betes mellitus 55703107 E11.22 A1C is 7.1 was 8.7 last visit a1c now is pending Continue to work on diet and will keep walking daily through endocrinol ogyno major issues except he is followed by endocrinst aying active, walks with but not as much due to the weather Disorientated 94231431 R 41.0 162872 noted to be having signif difficulty [id number] Randal Estrada [facility] [address] [facility] [address] 09/25/2025 15:56:22 09/28/2025 08:47:40 Depression screening 626688933 Z13.31 stable Essential hypertension 33131850 I10 BP is stable on the metoprolol cont current meds Type 2 damaris betes mellitus 67378848 E11.22 A1C is 7.1 off jardiance Continue to work on diet and will keep walking daily through endocrinol ogy no major issues except he is followed by endocrinst aying active, walks with but not as much due to the weather Confusional state 832475 003 R41.0 64368 stopping the jardiance did not help bp [...] Member ID Guarantor Name 09/25/2025 1 MEDICARE B-MS: [employer] Max Rodriguez [id number] Max Rodriguez 09/25/2025 2 [employer] - [employer] B[employer]IT [employer]AN (PPO) [id number] Max Rodriguez [id number] Max Rodriguez Notes Date Note Type Note Provider Name a nd Address Organization Details Recorded Time 09/25/2025 text/html ROS as noted in the HPI here for rechk he is still fatigued and not motivated confusion is still presentand relates worse at nightnot hungry at times Randal Estrada, [address] [facility], [place], [address], [facility] 09/25/2025 16:34:08
--- OUTSIDE RECORDS SUMMARY | 2025-11-02 23:07 | XMS_ITS | Encounter Summary ---
Author Organization [facility] Address [address] [facility] [address] [place] [address] Phone Care Team Providers Care Golf Tournament Consultant Name Role Phone Randal Pinon DO Primary Care Provider [phone] Reason for Referral * MRI/CAT Scan - Closed Specialty Diagnoses / Procedures Referred By Rhoda fields Referred To Contact Radiology Diagnoses Disorientation, unspecified Procedures MRI Brain Randal Pinon DO [address] [facility] [place], [place] Phone: tel: fax: [email or web address] Referral ID Status Reason Start Date Expiration Date Visits Re quested Visits Authorized [id number] Closed 08/26/2025 08/26/2026 1 1 Encounter Details Date Type Department Care Team (Late st Contact Info) Description 08/26/2025 Transcribe Orders Virtual Department [address] [place] [address] Randal Pinon DO [address] [facility] [place] [address] Disorientation, unspecified (Primary Dx) Social History Tobacco [...] Description 12/03/2025 10:00 AM EST Office Visit [facility] [address] [place] [address] Enedelia Duncan CNP [address] [place] [address] 03/23/2026 11:00 AM EDT Nutrition [facility] [address] [address] Candace Meyers LDN [address] [place] [address] documented as of this encounter Results * [...] clinician's provided indication for this examination in [facility]: Outside Radiology Order; disorientation TECHNIQUE: MRI BRAIN [...] clinician's provided indication for this examination in [facility]:Outside Radiology Order; disorientation TECHNIQUE: MRI [...] unspecified documented in this encounter Care Teams Golf Tournament Consultant Relationship Specialty Start Date End Date Jackieadolfo Randal Velázquez DO [address] [place] [address] [email or web address] PCP - General Internal Medicine 08/05/25 documented as of this encounter Additional Source Comments The information contained in this document represents components of the legal health record. It is not the complete legal health record.[facility]
--- OUTSIDE RECORDS SUMMARY | 2025-11-02 23:07 | XMS_ITS | Encounter Summary ---
Author Organization [facility] Address [address] [facility] [address] [place] [address] Phone Care Team Providers Care Supervisor Blood Name Role Phone Randal Pinon DO Primary Care Provider [phone] Randal Pinon DO Primary Care Provider [phone] Encounter Details Date Type Department Care Team ([facility] st Contact Info) Description 02/25/2024 Transcribe Orders [facility] [address] [place] [address] Leigh Devine PA [address] [place] [address] [email or web address] Upper abdominal pain (Primary Dx) Social History [...] Description 12/03/2025 10:00 AM EST Office Visit [facility] [address] [address] Enedelia Duncan, WILDER 22 [facility], [address] [place] [address] 03/23/2026 11:00 AM EDT Nutrition [facility] [address] [address] Candace Meyers LDN [address] [address] documented as of this encounter Results * GGT (Gamma glutamyl transferase) (02/25/2024 11:54 AM EDT) GGT 26 11 - 51 U/L [facility] Blood 02/25/2024 11:5 4 AM EDT 02/25/2024 11:57 AM EDT Leigh PINK LAB BLOOD BKR ORDERABLES Final Result [address] [address] * (ABNORMAL) Comprehensive metabolic panel (02/25/2024 11:54 AM EDT) SODIUM 135 133 - 146 mmol/L [facility] POTASSIUM 4.6 3.3 - 5.1 mmol/L [facility] CHLORIDE 98 96 - 108 mmol/L [facility] CO2 27 21 - 35 mmol/L [facility] BUN 63(H) 6 - 19 mg/dL [facility] CREATININE 1.80(H) 0.5 - 1.5 mg/dL [facility] GLUCOSE 301(H) 70 - 99 mg/dL [facility] ALBUMIN 3.8(L) 3.9 - 4.8 g/dL [facility] TOTAL PROTEIN 6.5 6.5 - 8.0 g/dL [facility] CALCIUM 9.1 8.4 - 10.3 mg/dL [facility] ALKALINE PHOSPHATASE 109 39 - 117 U/L [facility] TOTAL BILIRUBIN 0.5 0.0 - 1.2 mg/dL [facility] AST 17 0 - 37 U/L [facility] ALT 18 0 - 40 U/L [facility] GLOBULIN 2.7 1 - 4.8 g/dL [facility] EGFR 36(L) >59 mL/min/1.7 3m2 [facility] Comment:Estimated glomerular filtration rate calculated using the CKD-EPI refit equation. ANION GAP 15 10 - 20 mmol/L [facility] Blood 02/25/2024 11:5 4 AM EDT 02/25/2024 11:57 AM EDT Leigh PINK LAB BLOOD BKR ORDERABLES Final Result [facility] [address] [place], [place] [id number] * (ABNORMAL) CBC (02/25/2024 11:54 AM EDT) WBC 6.65 4.00 - 11.00 K/uL [facility] RBC 3.62(L) 3.90 - 5.69 M/uL [facility] HGB 10.3(L) 12.4 - 17.3 g/dL [facility] HCT 32.4(L) 37.0 - 51.0 % [facility] PLT 182 140 - 430 K/uL [facility] MCV 89.5 78.0 - 97.0 fL [facility] MCH 28.5 25.0 - 33.0 pg [facility] MCHC 31.8(L) 32.0 - 36.0 g/dL [facility] RDW 14.4 11.0 - 15.0 % [facility] MPV 9.7 8.4 - 12.8 [facility] Blood 02/25/2024 11:5 4 AM EDT 02/25/2024 11:57 AM EDT Leigh PINK LAB BLOOD BKR ORDERABLES Final Result [facility] [address] [place] [address] documented in this encounter Visit Diagnoses Diagnosis Upper abdominal pain- Primary documented in this encounter Care Teams Supervisor Blood Relationship Specialty Start Date End Date Randal Pinon DO PCP - General Internal Medicine 07/24/22 08/04/25 Randal Pinon DO [address] [place] [address] PCP - General Internal Medicine 08/05/25 documented as of this encounter Additional Source Comments The information contained in this document represents components of the legal health record. It is not the complete legal health record.[facility]
--- OUTSIDE RECORDS SUMMARY | 2025-11-02 23:07 | XMS_ITS | Encounter Summary ---
Author Organization [facility] Address [address] [facility] [address] [place] [address] Phone Care Team Providers Care Principal Military Analyst Name Role Phone Randal Pinon Primary Care Provider [phone] Encounter Details Date Type Department Care Team (Late st Contact Info) Description 09/09/2025 Telephone [employer] [facility] [address] [place] [address] Candace Meyers LDN [address] [facility], [address] [place] [address] [email or web address] Social History Tobacco Use Types Packs/Day Years [...] reach out and let us know * Cnadace Meyers LDN - 09/09/2025 2:46 PM EDT [...] Description 12/03/2025 10:00 AM EST Office Visit [facility] [address] [address] Enedelia Duncan CNP [address] [place] [address] 03/23/2026 11:00 AM EDT Nutrition [facility] [address] [address] Candace Meyers LDN [address] [place] [address] documented as of this encounter Visit Diagnoses Not on filedocumented in this encounter Care Teams Principal Military Analyst Relationship Specialty Start Date End Date Randal Pinon DO [address] [place] [address] PCP - General Internal Medicine 08/05/25 documented as of this encounter Additional Source Comments The information contained in this document represents components of the legal health record. It is not the complete legal health record.[facility]
--- OUTSIDE RECORDS SUMMARY | 2025-11-02 23:07 | XMS_ITS | Encounter Summary ---
Author Organization [facility] Address [address] [facility] [address] [place] [address] Phone Care Team Providers Care Wind Turbine Design Engineer Name Role Phone Randal Pinon Primary Care Provider [phone] Encounter Details Date Type Department Care Team (Late st Contact Info) Description 08/26/2025 Procedure Pass [facility], [address] [place] [address] Social History Tobacco Use Types Packs/Day Years [...] Description 12/03/2025 10:00 AM EST Office Visit [facility] [address] [address] Enedelia Duncan, BACK ROLLER [address] [place] [address] 03/23/2026 11:00 AM EDT Nutrition [address] [address] Candace Meyers, LIVE [address] [place] [address] documented as of this encounter Visit Diagnoses Not on filedocumented in this encounter Care Teams Wind Turbine Design Engineer Relationship Specialty Start Date End Date Randal Pinon DO [address] [place] [address] PCP - General Internal Medicine 08/05/25 documented as of this encounter Additional Source Comments The information contained in this document represents components of the legal health record. It is not the complete legal health record.[facility]
--- OUTSIDE RECORDS SUMMARY | 2025-11-02 23:07 | XMS_ITS | Clinical Summary ---
Author Organization [facility] Address [address] [address] Phone Care Team Providers Care Traffic Line Painter Name Role Phone Randal Pinon Primary Care Provider [phone] Allergies Active Allergy Reactions Criticality Noted Date [...] his glucose levels. Up to date with [facility] Assessment & Plan (03/13/2024 11:48 PM EDT): [...] training Procedures: Glucose Monitoring: Type of Sensor: DexRedis Labs G7 Instruction: Patient Instructed on:, Calibrations, When [...] Care Team Description 10/08/2025 Telephone [facility] [address] [place] [address] [place] [address] Mckenna Schwab MA CLINICAL NOTES 09/28/[address] [place] [address] Candace Meyers LDN Dexcom not connecting to phone (Dexcom not connecting to phone) 09/27/2025 11:03 AM EST - 09/27/2025 11:59 PM EST Hospital Encounter [address] [place] [address] Randal Pinon, DO Discharge Disposition: Home or Self Care 09/11/[address] [place] [address] Candace Meyers LDN Dexcom not connecting to phone (Dexcom not connecting to phone) 09/09/2025 10:00 AM EDT Nutrition [address] [place] [address] Jonna Whittington MD Dawicki, Jessica Jeanne, LDN Type 2 diabetes mellitus with stage 3b chronic kidney disease, with long-term current use of insulin (Primary Dx) 09/09/[address] [place] [address] Candace Meyers LDN 08/26/2025 Procedure Pass [address] [place] [address] 08/26/2025 Transcribe Orders Virtual Department [address] [place] [address] Randal Pinon DO Disorientation, unspecified (Primary Dx) 08/10/2025 2:32 PM EDT - 08/10/2025 11:59 PM EDT Hospital Encounter [facility] [address] [place] [address] Kendrick Argueta MD Discharge Disposition: Home or Self Care 08/10/2025 Transcribe Orders [facility] [address] [place] [address] Kendrick Argueta MD Vitamin D deficiency, unspecified (Primary Dx); Type 2 diabetes mellitus with stage 3b chronic kidney disease, with long-term current use of insulin 08/04/2025 3:00 PM EDT Nurse Only [facility] [address] [place] [address] Jonna Whittington MD Type 2 diabetes mellitus with stage 3b chronic kidney disease, with long-term current use of insulin (Primary Dx) from Last 3 Months Immunizations Immunization Administration [...] Description 12/03/2025 10:00 AM EST Office Visit [facility] [address] [place] [address] Enedelia Duncan, WILDER [address] [place] [address], [address] [place] [id number] 03/23/2026 11:00 AM EDT Nutrition [facility] [address] [place] [address] Candace Meyers LDN [address] [place] [address], [address] [place] [phone] [email or web address] Health Maintenance Due Date Last Done Comments Adult Td,Tdap Booster 1935 DEPRESSION SCREENING 1949 DIABETIC EYE EXAM 07/24/2022 HEMOGLOBIN A1C 02/07/2026 08/10/2025, 06/26, 03/04/2024, Additional history exists COVID-19 VACCINE ( season) 2026 09/11/2025, 09/16/2024, 08/31/2023, Additional history exists RSV VACCINE Completed 01/01/2024 [...] clinician's provided indication for this examination in [facility]: Outside Radiology Order; disorientation TECHNIQUE: [...] clinician's provided indication for this examination in [facility]:Outside Radiology Order; disorientation TECHNIQUE: MRI [...] Bigda DO IMG MR HEAD/NECK Final Result * Iron (08/10/2025 2:49 PM EDT) IRON 64 45 - 160 ug/dL [facility] Blood 08/10/2025 2:49 PM EDT 08/10/2025 2:51 PM EDT us Kendrick Argueta MD LAB BLOOD ORDERABLES Final Resul t [facility] [address] [place] [address] * (ABNORMAL) Renal panel (08/10/2025 2:49 PM EDT) SODIUM 139 133 - 146 mmol/L [facility] POTASSIUM 4.4 3.3 - 5.1 mmol/L [facility] CHLORIDE 107 96 - 108 mmol/L [facility] CO2 22 21 - 35 mmol/L [facility] GLUCOSE 151(H) 70 - 99 mg/dL [facility] BUN 47(H) 6 - 19 mg/dL [facility] CREATININE 1.90(H) 0.5 - 1.5 mg/dL [facility] CALCIUM 9.0 8.4 - 10.3 mg/dL [facility] PHOSPHORUS 3.2 2.7 - 4.5 mg/dL [facility] ALBUMIN 4.4 3.9 - 4.8 g/dL [facility] EGFR 34(L) >59 mL/min/1.7 3m2 [facility] Comment:Estimated glomerular filtration rate calculated using the CKD-EPI refit equation. ANION GAP 14 10 - 20 mmol/L [facility] Blood 08/10/2025 2:49 PM EDT 08/10/2025 2:51 PM EDT us Kendrick Argueta MD LAB BLOOD BKR ORDERABLES Final R esult Performing Organization Address City/[facility]/ZIP Co de Phone Number [address] [address] * Total protein, random urine (08/10/2025 2:49 PM EDT) URINE TOTAL PROTEIN 10.0 mg/dL [facility] Urine (Urine) 08/10/2025 2:4 9 PM EDT 08/10/2025 2:51 PM EDT us Kendrick Argueta MD LAB URINE ORDERABLES Final Resul t Performing Organization Address [facility] Co de Phone Number [address] [address] * (ABNORMAL) 25-OH vitamin D (08/10/2025 2:49 PM EDT) 25 [place] VIT D (TOTAL) 70(H) 30 - 60 ng/mL [facility] Blood 08/10/2025 2:49 PM EDT 08/10/2025 2:51 PM EDT us Kendrick Argueta MD LAB BLOOD BKR ORDERABLES Final R esult Performing Organization Address [facility] Co de Phone Number [address] [address] * (ABNORMAL) CBC (08/10/2025 2:49 PM EDT) WBC 7.10 4.00 - 11.00 K/uL [facility] RBC 4.13(L) 4.50 - 5.90 M/uL [facility] HGB 12.7(L) 13.5 - 17.5 g/dL [facility] HCT 39.0(L) 41.0 - 53.0 % [facility] PLT 191 150 - 450 K/uL [facility] MCV 94.4 80.0 - 100.0 fL [facility] MCH 30.8 27.0 - 31.0 pg [facility] MCHC 32.6 32.0 - 36.0 g/dL [facility] RDW 13.2 11.5 - 14.5 % [facility] MPV 9.3 8.4 - 12.0 fL [facility] NRBC 0.00 0.00 /100 WBCs [facility] ABSOLUTE NRBC 0.00 0.00 K/uL [facility] Blood 08/10/2025 2:49 PM EDT 08/10/2025 2:51 PM EDT Kendrick Argueta MD LAB BLOOD BKR ORDERABLES Final R esult [address] [address] * Parathyroid hormone (PTH) (08/10/2025 2:49 PM EDT) PARATHYROID HORMONE 23 15 - 65 pg/mL [facility] Blood 08/10/2025 2:49 PM EDT 08/10/2025 2:50 PM EDT Kendrick Argueta MD LAB BLOOD BKR ORDERABLES Final R esult Performing Organization Address City/[facility]/ZIP Co de Phone Number [address] [address] * (ABNORMAL) Hemoglobin A1c (08/10/2025 2:49 PM EDT) HEMOGLOBIN A1C 7.1(H) 4.3 - 5.8 % [facility] Blood 08/10/2025 2:49 PM EDT 08/10/2025 2:50 PM EDT us Kendrick Argueta MD LAB BLOOD BKR ORDERABLES Final R esult [facility] [address] [place] [address] from Last 3 Months Insurance MEDICARE PART [facility] & [facility]PO [facility] A & [facility] EPO MEDICARE PART A & B O POS EPO MEDICARE PART A & B O POS EPO MEDICARE PART A & B [id number] [place], [place] [id number] POS EPO MEDICARE PART A & [facility] EPO [facility] Address[facility] [phone] [place] [address] MEDICARE PART A & B O POS EPO [facility] Address: [facility] [phone] [place] [address] MEDICARE PART A & B [employer] POS EPO Care Teams Traffic Line Painter Relationship Specialty Start Date End Date Randal Pinon DO [address] [place] [address] PCP - General Internal Medicine 08/05/25 Additional Source Comments The information contained in this document represents components of the legal health record. It is not the complete legal health record.[facility]
--- OUTSIDE RECORDS SUMMARY | 2025-11-02 23:07 | XMS_ITS | Data Portability ---
Author Organization [facility] Telehealth Patient Home Address [address] [place] [address] Assessment Encounter Date Assessment Date Assessment LastModified by Organization Details LastModified Time 05/04/2025 05/04/2025 Patient presente d to office [...] [email or web address] Not available 04/22/2025 15:44:08 08/26/2025 08/26/2025 [id number] [place] [id number] (PLATE MOLDER) MDM MODERATE MUST MEET 2 OUT OF [...] COVERED Not available 08/26/2025 15:12:12 09/25/2025 09/25/2025 [id number] [place] [id number] (PLATE MOLDER) MDM MODERATE MUST MEET 2 OUT OF [...] COVERED Not available 09/25/2025 16:30:30 10/19/2025 10/19/2025 [address] [place] [address] (PLATE MOLDER) MDM MODERATE MUST MEET 2 OUT OF [...] Lab BMP, serum or plasma 2024 025 [facility], [address] [place] [address], [address], 10/19/2025 16:46:[address] referral 2024 [id number] [email or web address] Marques Warren MD, [address] [place] [address], [address], 10/19/2025 16:48:58 Procedures None recorded. Surgeries None recorded. Imaging MRI, brain, w/o contrast 2024 025 [facility] Central Scheduling (Not Breast), [address] [facility], [place], [address], 08/28/2025 08:41:16 Medication Orders quetiapin e 25 mg tablet 2024 [facility] #[id number], [address] [place], [address], 10/26/2025 10:52:28 triamtere ne 37.5 mg-hydroc hlorothia zide 25 mg tablet 2024 025 [facility] #[id number], [address] [place], [address], 10/19/2025 16:39:21 terbinafi ne HCl 250 mg tablet 2024 025 [facility]/Pharmacy #[id number], [address] [place], [address], 08/26/2025 15:05:26 Patient TargetsNo targets recorded. Patient Instructions Encounter Date Encounter Id Patient Instructions Last Modified By Organization Details Last Modified Time 05/04/2025 [id number] advance care planning: care instructions Not available 05/04/2025 12:28:16 Discussed and explained advance directives such as standard forms to the patient. Face to face discussion lasted for a duration of __25_ minutes. Not available 05/04/2025 14:02:00 09/25/2025 [id number] learning about type 2 diabetes Not available [...] contr ast No observ ation record ed. [email or web address] [facility] [address] [facility], [place], [address], 10/05/2025 08:55:03 Result Notes None recorded. Problems Name Problem SNOMED Code Status Onset Date Resolution Date Notes Provider Name and Address Organization Details Recorded Time Type 2 diabetes mellitus 37745062 Active 2017 Randal Estrada DO [address] [place] [address], [address], [facility] 5 15:15:25 Neuropath y due to diabetes mellitus 878731598 Active 2017 Not Available [facility] 3 16:04:36 Essential hypertens ion 74979810 Active 2017 Not Available [facility] 3 16:04:36 Hyperchol esterolem ia 17283110 Active 2017 Not Available [facility] 3 16:04:35 Chronic kidney disease 614108530 Active 2017 Stage 3 Not Available [facility] 3 16:04:36 Melena 3009492 Active 2021 Not Available [facility] 3 16:04:36 Dysuria 29466898 Active 2021 Not Available [facility] 3 16:04:36 Chronic kidney disease stage 3 050114550 Active 2022 Not Available [facility] 3 16:04:36 Cholecyst itis 02475031 Active 2023 APRYL SPRAGUE [address] [place] [address], [address], [facility] 4 11:59:49 Gastritis 8056680 Active 2023 APRYL SPRAGUE [address] [place] [address], [address], [facility] 4 12:04:13 Diarrhea 06355510 Active 2023 APRYL SPRAGUE [address] [place] [address], [address], [facility] 4 13:44:52 Depressiv e disorder 96603667 Active 2023 Randal Estrada DO [address] [place] [address], [address], [facility] 4 10:36:59 Dupuytren 's contractu re of finger 287327107 Active 2023 Randal Estrada DO [address] [place] [address], [address], [facility] 4 11:05:22 Dermatoph ytosis 45031742 Active 2023 Randal Estrada DO [address] [place] [address], [address], [facility] 4 11:02:32 Osteoarth ritis of right knee joint 292657105830 100 Active 2024 Randal Estrada DO [address] [place] [address], [address], [facility] 5 10:34:03 Onychomyc osis of toenails 913641313 Active 2024 Randal Estrada DO [address] [place] [address], [address], [facility] 5 12:27:18 Disorient ated 96696631 Active 2024 Randal Estrada DO [address] [place] [address], [address], [facility] 5 15:16:40 Confusion al state 651111913 Active 2024 Randal Estrada DO [address] [place] [address], [address], [facility] 5 16:31:31 Keshav hematuria 178199209 Active 2024 Randal Estrada DO [address] [place] [address], [address], [facility] 5 13:36:11 Uncompens ated short term memory deficit 67446008 Active 2024 Randal Estrada DO [address] [place], [address], [facility] 5 16:40:52 Suraj saravia 781044851 Active 2024 APRYL SPRAGUE [address] [place], [address], [facility] 5 10:47:16 Dementia with behaviora l disturban ce 707581992230 3 Active 2024 APRYL SPRAGUE [address] [place] [address], [address], [facility] 5 10:47:34 Notes:Some problems listed i n Documents: #[id number], #[id number], #[id number], #[id number], #[id number], #[id number], #[id number], #[id number], #[id number] could not be added to this patient's [...] n cough Not available Not available 02/20/2018 28936 [facility] 8 13:34:23 9838 loratadin e medicatio n other Not available Not available 10/14/20252019 30663 RxNorm Not Available brandon - External Data [...] Not Available Not Available FreeStyle Gilberto 2 Howard Use as directed . 10/19 completed Not Available Not Available Not Available Fluzone High-Dose Quad 2020-21 (PF) 240 mcg/0.7 mL IM syringe PHARMACY [...] Updated DateTime 5 170.18 cm 28.6 kg/m2 62317.0 4 g 71 /min 97 % 126/72 mm[Hg] GAIL CEDILLO [facility] 5 11:49:23 Date Recorded Body height Body mass index (BMI) Body weight Heart rate Oxygen saturation Systolic And Diastolic Provider Name and Address Organization Details Last Updated DateTime 5 170.18 cm 27.4 kg/m2 55676.6 6 g 62 /min 98 % 128/84 mm[Hg] Ingrid Holden [facility] 5 14:45:30 Date Recorded Body height Body mass index (BMI) Body weight Oxygen saturation Heart rate Systolic And Diastolic Provider Name and Address Organization Details Last Updated DateTime 170.18 cm 27.8 kg/m2 86282.7 2 g 94 % 62 /min 124/70 mm[Hg] GAIL IRAHETABETTIE [facility] 16:13:43 Date Recorded Body height Body mass index (BMI) Body weight Heart rate Oxygen saturation Systolic And Diastolic Provider Name and Address Organization Details Last Updated DateTime 170.18 cm 28.6 kg/m2 88735.9 7 g 68 /min 99 % 138/60 mm[Hg] Pat Leonardo [facility] 16:16:49 Date Recorded Body height Body mass index (BMI) Body weight Systolic And Diastolic Provider Name and Address Organization Details Last Updated DateTime 10/26/2025 170.18 cm 28.5 kg/m2 23015.81 g 130/68 mm[Hg] Isis Bradley [facility] 10/26/2025 10:38:21 Social History Question Answer Notes LastModified by Organizat ion Details LastModified Time Tobacco Smoking Status Former Smoker Not Available [facility] 09/28/2020 03:36:24 What Was The Date Of Your Most Recent Tobacco Screening? 10/26/2025 Information not available 10/26/2025 How Many Years Have You Smoked Tobacco? 50 [id number] Information not available 09/28/2020 Sex: Unknown Functional Status Question Answer Note LastModified by Organization D etails LastModified Time Do you or have you ever used any other forms of tobacco or nicotine? No [email or web address] Information not available 08/20/2023 Mental Status None [...] Time zoster recombinant 5 completed Not Available [facility] 08/06/2023 16:05:00 Influenza, split virus, quadrivalent, preservative 8 completed Not Available [facility] 08/06/2023 16:05:00 COVID-19, mRNA, LNP-S, PF, 30 mcg/0.3 mL dose 1 completed Not Available [facility] 08/06/2023 16:05:00 Influenza, split virus, quadrivalent, preservative 1 completed Not Available [facility] 08/06/2023 16:05:00 COVID-19, mRNA, LNP-S, PF, 30 mcg/0.3 mL dose 2 completed Not Available [facility] 08/06/2023 16:05:00 influenza, unspecified formulation 2 completed Not Available [facility] 08/06/2023 16:05:00 zoster, unspecified formulation 4 completed Randal Estrada, DO [address] [place] [address], [place], [address], [facility] 05/11/2024 08:53:32 influenza, unspecified formulation 5 completed GAIL ag, [facility] 08/28/2025 13:20:35 Influenza, split virus, quadrivalent, preservative 9 completed Not Available [facility] 08/06/2023 16:05:00 Influenza, split virus, quadrivalent, preservative 0 completed Not Available [facility] 08/06/2023 16:05:00 COVID-19, mRNA, LNP-S, PF, 30 mcg/0.3 mL dose 1 completed Not Available [facility] 08/06/2023 16:05:00 COVID-19, mRNA, LNP-S, PF, 30 mcg/0.3 mL dose 1 completed Not Available [facility] 08/06/2023 16:05:00 Past Encounters Encounter ID Performer Location Encounter Start Date Encounter Closed Date Diagnosis/Indication Diagnosis SNOMED-CT Code Diagnosis ICD10 Code Diagnosis IMO Codes Diagnosis Note [id number] February JB M[facility] [address] [facility] [place] [address] 02/25/2018 10:16:02 02/25/2018 11:34:02 Type 2 diabetes mellitus 47670062 E11.40 E11.3293 exercise more- pt plans to walk more- this is encouraged better diet control continue januvia & glipizide consider restarting metformin in future continue daily fbs monitoring continue q9week toenail maintenanc e Benign ess ential hypertension 6943724 I10 stable, continue metoprolol daily, as well as baby asa Hyperlipidemia 40869564 E78.2 overdue for labs- will order for next visit Chronic ki dney disease stage 3 015003972 N18.3 will monitor cmp. continue care with dr. christiansen. reinforced kidney health diet. praised for increase intake of fish over mammalian sources. [id number] [facility] [address] [facility],[place] [address] 05/27/2018 08:54:43 05/27/2018 09:41:01 Type 2 diabetes mellitus 38812387 E11.3293 E11.40 pt reluctant to start new [...] metformin increase exercise Benign ess ential hypertension 9038844 I10 stable, continue metoprolol daily, as well as baby asa Hyperlipidemia 94297629 E78.2 LDL not quite at goal - diet and exercise recommende d Chronic ki dney disease stage 3 789470743 N18.3 will monitor cmp. continue care with dr. christiansen. reinforced kidney health diet. praised for increase intake of fish over mammalian sources. no improvemen t with d/c of metformin [id number] [facility] [address] [facility],[place] [address] 10/08/2018 09:31:32 10/08/2018 10:40:01 Type 2 diabetes mellitus 46333533 E11.3293 E11.40 a1c worse at 8.8, up [...] metformin increase exercise Benign ess ential hypertension 2540447 I10 stable, continue metoprolol daily, as well as baby asa Hyperlipidemia 50195934 E78.2 LDL worse will increase lovastatin Chronic ki dney disease stage 3 219006581 N18.3 will monitor cmp. continue care with dr. christiansen. reinforced kidney health diet. praised for increase intake of fish over mammalian sources. no improvemen t since d/c of metformin Body mass index 25-29 - overweight 548159169 Z68.29 working on eating a healthier diet now. [id number] [facility] [address] [facility], [place] [address] 12/31/2018 09:05:34 12/31/2018 10:11:48 Type 2 diabetes mellitus 70554374 E11.3293 E11.40 a1c improved from 8.8 to [...] goal of <7 Benign ess ential hypertension 0121384 I10 well-contr olled, continue metoprolol daily, as well as baby asa Hyperlipidemia 59218728 E78.2 cholestero l panel improved LDL still not quite at goal with LDL of 101 but down from 140 Chronic ki dney disease stage 3 879549974 N18.3 will monitor cmp. continue care with dr. christiansen. reinforced kidney health diet. praised for increase intake of fish over mammalian sources. no improvemen t since d/c of metformin Body mass index 25-29 - overweight 501982913 Z68.29 working on eating a healthier diet now [id number] [facility] [address] [facility],[place] [address] 06/20/2019 10:34:21 06/20/2019 11:57:48 Type 2 diabetes mellitus 56600069 E11.22 actually heading in the right direction and hgb down from 9.5 and down to 8 cont good diet and glipizide and januvia Essential hypertension 39952334 I10 here for chk and is doing ok and is tolerating med without issue Active or passive immunization 192824175 Z23 needs tdap as last vaccine will send to pharm Chronic ki dney disease 417643417 N18.9 seems stable and no change in his meds Neuropathy due to diabetes mellitus 712426525 E11.49 ongoing neuropathy but is self limited [id number] [facility] [address] [facility],[place] [address] 10/31/2019 08:57:37 10/31/2019 09:18:49 Essential hypertension 14805527 I10 here for chk and is doing ok and is tolerating med without issue Type 2 damaris betes mellitus 25823825 E11.22 actually heading in the right direction and hgb down from 9.5 and down to 8 cont good diet and glipizide and januvia Chronic ki dney disease 351623884 N18.9 seems stable and no change in his meds follows with dr christiansen and all has been ok reviewed lab in detail [facility] pt Neuropathy due to diabetes mellitus 992406684 E11.49 ongoing neuropathy but is self limited [id number] [facility] [address] [facility],[place] [address] 01/30/2020 09:03:51 01/30/2020 09:52:06 Type 2 diabetes mellitus 36164824 E11.22 A1c is 9.4, was 8 (but that was when he switched from glipizide to glimepirid e) states that his sugar is much better now that he has switched back cont good diet and glipizide and januvia staying active, walks with will have labs redo at the end of this month Essential hypertension 73185420 I10 BP is stable on the metoprolol 130/70 (01/30/20) Chronic ki dney disease 227027917 N18.[address] Christiansen again during the first week of February for f/u appt. will get blood work done at end of January to bring to him [id number] Randal Estrada, [facility] [address] [facility] [address],[place] [facility] [place] [address] 03/12/2020 11:41:20 03/12/2020 12:22:20 Hypercholesterolemia 04889883 E78.00 will be checking in a few months Type 2 damaris betes mellitus 41599355 E11.22 A1c is 9.3 and was 9.4, was 8 (but now he switched back from glipizide to glimepirid e and states that his sugar is much better now that he has switched back cont good diet and glipizide and januvia staying active, walks with will have labs redo at the end of this month Essential hypertension 19754211 I10 BP is stable on the metoprolol 130/70 (01/30/20) [id number] Randal Estrada, [facility] [address] [facility] [address],[place] [address] 05/24/2020 10:26:33 05/24/2020 11:10:22 Type 2 diabetes mellitus 85033332 E11.22 A1C was 9.3 is now 8.6 [...] the end of this month Essential hypertension 51219562 I10 BP is stable on the metoprolol Chronic ki dney disease 110564273 N18.[address] Christiansen next mo Ganglion c yst of left hand 5952148852 58916 M67.442 L 1st digit palmar Will monitor and refer if locking or painful [id number] [facility] [address] [facility] [place] [address] 11/23/2020 08:40:27 11/23/2020 15:44:08 Type 2 diabetes mellitus 68509796 E11.22 A1C was in jul 9.5 due [...] much due to the cold Essential hypertension 60098059 I10 BP is stable on the metoprolol Chronic ki dney disease 692647748 N18.[address] Christiansen next mo Neuropathy due to diabetes mellitus 304584915 E11.49 ongoing neuropathy but is self limited and has not worsened Hypercholesterolemia 136 60776 E78.00 will be checking in a few months Primary er ectile dysfunction 757973518 N52.[id number] [facility] [address] [facility],[place] [address] 03/09/2021 10:46:48 03/09/2021 11:27:21 Essential hypertension 96700849 I10 BP is stable on the metoprolol Type 2 damaris betes mellitus 89872054 E11.22 A1C was in jul 9.5 due [...] much due to the cold Hypercholesterolemia 136 09046 E78.00 will be checking in a few months [id number] [facility] [address] [facility],[place] [address] 06/22/2021 10:44:36 06/22/2021 11:33:49 Type 2 diabetes mellitus 65187203 E11.22 A1C was 7.4 today and was [...] much due to the cold Essential hypertension 64780203 I10 BP is stable on the metoprolol Chronic ki dney disease stage 3 518220678 N18.30 stable and is followed by renal although his numbers are about the same [id number] [facility] [address] [facility],[place] [address] 10/17/2021 11:12:08 10/17/2021 11:41:11 Type 2 diabetes mellitus 37089003 E11.22 A1C was 7.4 today and was [...] much due to the cold Hypercholesterolemia 136 89785 E78.00 will be checking in a few months but we feels he is doing good Essential hypertension 22050051 I10 BP is stable on the metoprolol cont current meds Type 2 damaris betes mellitus without complication 943020867 E11.9 a1c is 7.8 and doing oktrying not to eat too much [id number] [facility] [address] [facility] [address],[place] [address] 01/30/2022 11:16:50 01/30/2022 15:15:57 Type 2 diabetes mellitus 88935394 E11.22 A1C was8.5 and in september was [...] much due to the cold Essential hypertension 50418359 I10 BP is stable on the metoprolol cont current meds Type 2 damaris betes mellitus without complication 861615329 E11.9 a1c is 7.8 and doing oktrying not to eat too much Chronic ki dney disease stage 3 977231521 N18.30 stable and is followed by renal although his numbers are about the same Neuropathy due to diabetes mellitus 315456260 E11.49 ongoing neuropathy but is self limited and has not worsened Hypercholesterolemia 136 90510 E78.00 will be checking in a few months but we feels he is doing good Candidiasis of skin 4988 3006 B37.[id number] [facility] [address] [facility],[place] [address] 05/17/2022 10:50:14 05/17/2022 11:48:20 Depression screening 361802347 Z13.31 stable and negative Active or passive immunization 261900760 Z23 needs tdap as last vaccine will send to pharm Adult [facility] examination 229318694 Z00.01 long detailed discussion with present explaining the need to eat right he is eating all carbs and sweets and is not following a good dieti explained how this is hurting him etche will try to be better and we wilkl hold off on using insulin etc we will have him try to get [place]ber[place] etc [id number] [facility] [address] [facility],[place] [address] 06/23/2022 14:32:22 06/26/2022 08:42:21 Type 2 diabetes mellitus 62358793 E11.22 placed freestyle gilberto, upper left ar[place]atient [place] [id number] [facility] [address] [facility] [place] [address] 08/04/2022 14:11:26 08/04/2022 14:25:16 Type 2 diabetes mellitus 17499311 E11.22 A1C was 8.5 and in september [...] to the cold Chronic ki dney disease 900457421 N18.[address] Christiansen next mo Essential hypertension 90356429 I10 BP is stable on the metoprolol cont current meds [id number] [facility] [address] [facility] [place] [address] 11/10/2022 09:44:48 11/10/2022 14:41:44 Essential hypertension 83987336 I10 BP is stable on the metoprolol cont current meds Type 2 damaris betes mellitus 43214396 E11.22 A1C is pending Continue to work on diet and will keep walking daily PRIOR: last year cont good diet and trulicity and januvia staying active, walks with but not as much due to the cold Melena 9178246 K92.1 no evidnce of bleeding no evid of melena Chronic ki dney disease 084217047 N18.9 stable has had some lab earlier this year [place] [id number] [facility] [address] [facility] [address],[place] [facility] [place] [address] 01/05/2023 09:18:59 01/05/2023 09:52:37 Type 2 diabetes mellitus 41635185 E11.22 A1C is pending Continue to work on diet and will keep walking daily PRIOR: last year cont good diet and trulicity and tracee staying active, walks with but not as much due to the cold Hypercholesterolemia 136 70732 E78.00 will be checking in a few months but we feels he is doing good Type 2 damaris betes mellitus without complication 625561811 E11.9 a1c is up to 9.7 this with januvia and trulicity we will try to change the januvia to jardiancet rying not to eat too much Chronic ki dney disease stage 3 949600226 N18.30 stable and is followed by renal although his numbers are about the same Chronic ki dney disease 280750521 N18.9 stable has had some lab earlier this year seeing Dr. Christiansen next mo Essential hypertension 63668474 I10 BP is stable on the metoprolol cont current meds [id number] [facility] [address] [facility] [address] 08/20/2023 11:35:04 08/20/2023 12:26:56 Chronic kidney disease stage 3 551759983 N18.30 stable and is followed by renal dr christiansen although his numbers are about the same Essential hypertension 67620592 I10 BP is stable on the metoprolol cont current meds Hypercholesterolemia 136 41556 E78.00 will be checking in a few months but we feels he is doing good Type 2 damaris betes mellitus 95153137 E11.22 A1C is pending Continue to work on diet and will keep walking daily through endocrinol ogaltheao major issues except he is followed by endocrinst aying active, walks with but not as much due to the weather [id number] Randal Estrada [facility] [address] [facility],[place] [address] 11/07/2023 11:36:08 11/07/2023 12:23:54 Essential hypertension 06756235 I10 BP is stable on the metoprolol cont current meds Hypercholesterolemia 136 86306 E78.00 will be checking in a few months but we feels he is doing good Type 2 damaris betes mellitus 71111205 E11.22 A1C is 8.7 Continue to work on diet and will keep walking daily through endocrinol ogyno major issues except he is followed by endocrinst khanh larios, walks with but not as much due to the weather Chronic ki dney disease 900229510 N18.9 arun has had some lab earlier this year seeing Dr. Christiansen next mo Chronic ki dney disease stage 3 831361433 N18.30 stable and is followed by renal dr christiansen although his numbers are about the same Type 2 damaris betes mellitus without complication 701486001 E11.9 a1c was up to 9.7 now down to 8.7 on jardiance and trulicityt rying not to eat too much but admits to eating things she shouldnt at times [id number] Randal Estrada [facility] [address] [facility],[place] [address] 02/05/2024 11:43:52 02/05/2024 15:49:20 Cholecystitis 08098727 K80.47 currently on prilosec 40 mg for the next 30 dayscurren tly on sucralfate 1 g for the next 30 days Gastritis 2218807 K29.60 will set up [id number] Randal Estrada [facility] [address] [facility], [place] [address] 03/17/2024 10:04:01 03/17/2024 11:30:46 Chronic kidney disease 334608125 N18.9 arun has had some lab earlier this year seeing Dr. Christiansen next mo Essential hypertension 74474866 I10 BP is stable on the metoprolol cont current meds Type 2 damaris betes mellitus without complication 857033974 E11.9 a1c was up to 9.7 now down to 9.3 was 8.7 on jardiance and trulicityt rying not to eat too much but admits to eating things she shouldnt at times Type 2 damaris betes mellitus 48086434 E11.22 A1C is 8.7 Continue to work on diet and will keep walking daily through endocrinol ogyno major issues except he is followed by endocrinst khanh larios, walks with but not as much due to the weather Hypercholesterolemia 136 78814 E78.00 will be checking in a few months but we feels he is doing good Cholecystitis 71344577 K 80.47 Depressive disorder 8 4479 F32.A [id number] Randal Estrada [facility] [address] [facility] [address] 04/28/2024 15:15:27 04/28/2024 16:09:08 Depression screening 534263742 Z13.31 stable Depressive disorder 35472 F32.A will increase the dose [id number] Randal Estrada [facility] [address] [facility],[place] [address] 05/28/2024 10:36:07 05/28/2024 11:23:55 Essential hypertension 06077451 I10 BP is stable on the metoprolol cont current meds Chronic ki dney disease 829133378 N18.9 stable has had some lab earlier this year seeing Dr. lopes next mo Type 2 damrais betes mellitus 71633322 E11.22 A1C was 8.7 last visit a1c now is pending Continue to work on diet and will keep walking daily through endocrinol ogyno major issues except he is followed by endocrinst cassidy active, walks with but not as much due to the weather Dupuytren' s contracture of finger 231902987 M72.0 Depressive disorder 35473 F32.A will increase the dose [id number] Randal Estrada [facility] [address] [facility],[place] 7 09/24/2024 10:31:31 09/24/2024 11:22:37 Chronic kidney disease 948112244 N18.9 stable has had some lab earlier this year seeing Dr. lopes next mo Essential hypertension 62250414 I10 BP is stable on the metoprolol cont current meds Type 2 damaris betes mellitus 50423990 E11.22 A1C was 8.7 last visit a1c now is pending Continue to work on diet and will keep walking daily through endocrinol ogyno major issues except he is followed by endocrinst cassidy active, walks with but not as much due to the weather Dermatophytosis 67351707 B35.9 Depressive disorder 3548 9007 F32.A will increase the dose [id number] Randal Estrada DO 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 3 Osteoarthr itis of right knee joint 7762479056 99959 M17.11 sherine is well paola [id number] Randal Estrada DO [facility] [address] [facility],[place] [address] 05/04/2025 11:33:25 05/04/2025 13:46:06 Screening for cardiovascular system disease 841371597 Z13.6 long detailed discussion with present explaining the need to eat right he is eating all carbs and sweets and is not following a good diet Essential hypertension 25933944 I10 BP is stable on the metoprolol cont current meds Hypercholesterolemia 136 92476 E78.00 will be checking in a few months but we feels he is doing good Type 2 damaris betes mellitus 91601707 E11.22 A1C was 8.7 last visit a1c now is pending Continue to work on diet and will keep walking daily through endocrinol ogyno major issues except he is followed by endocrinst aying active, walks with but not as much due to the weather General ex amination of patient 664310403 Z00.01 69113080 eating better and diet is good a1c is 7.5 Onychomyco sis of toenails 938063067 B35.1 7352878 [id number] R[address] DO [facility] [address] [facility],[place] [address] 08/26/2025 14:33:32 08/26/2025 16:37:28 Depression screening 463917520 Z13.31 stable Essential hypertension 50047846 I10 BP is stable on the metoprolol cont current meds Type 2 damaris betes mellitus 27931772 E11.22 A1C is 7.1 was 8.7 last visit a1c now is pending Continue to work on diet and will keep walking daily through endocrinol ogyno major issues except he is followed by endocrinst khanh larios, walks with but not as much due to the weather Disorientated 76463003 R 41.0 [id number] noted to be having signif difficulty [id number] Randal Estrada [facility] [address] [facility],[place], [place] 7 09/25/2025 15:56:22 09/28/2025 08:47:40 Depression screening 754365156 Z13.31 stable Essential hypertension 96518159 I10 BP is stable on the metoprolol cont current meds Type 2 damaris betes mellitus 10329082 E11.22 A1C is 7.1 off jardiance Continue to work on diet and will keep walking daily through endocrinol ogyno major issues except he is followed by endocrinst khanh larios, walks with but not as much due to the weather Confusional state 179568 003 R41.0 69470 stopping the jardiance did not help bp are low normal and will have him wean off beta allen to see if some of the confusion gets better rechk in a couple weeks [id number] Randal Estrada DO [facility] [address] [facility],[place] 7 10/19/2025 16:08:58 10/19/2025 16:48:58 Depression screening 119943069 Z13.31 stable Essential hypertension 61558945 I10 will try dyazide cont to stay off the metoprolol cont current meds Hypercholesterolemia 136 69303 E78.00 will be checking in a few months but we feels he is doing good Type 2 damaris betes mellitus 35413903 E11.22 A1C is 7.1 off jardiance Continue to work on diet and will keep walking daily through endocrinol ogy no major issues except he is followed by endocrinst khanh larios, walks with but not as much due to the weather Uncompensa elaina short term memory deficit 38263640 R41.[id number] [facility] [address] [facility], [place] 7 10/26/2025 10:33:27 10/28/2025 09:39:58 Sundowning 029440246 F05 1712148 worsening symptomsre commended seroquel Dementia w ith behavioral disturbance 6573349384 103 F03.B18 9924749899 will set up with seroquel Type 2 damaris betes mellitus 52941912 E11.22 elevated; could be related to lack of sleep Health Concerns Section Related Observation LastModified by Organization Detai ls LastModified Time None Recorded Concern Status LastModified by Organization Details LastModified Time None Recorded Advance Directives Directive None Recorded Payers Insurance Date Sequence Insurance Name Policy Number Policy Adams Covered Member ID Adams Member ID Guarantor Name 10/19/2025 1 MEDICARE B-[place]: [employer] Max Rodriguez [id number] Max Rodriguez 10/27/2025 2 [employer] - MAIL HANDLERS BENEFIT PLAN (PPO) [id number] Max Rodriguez [id number] Max Rodriguez Notes Date Note Type Note Provider Name and Address Organization Details Recorded Time 05/04/20 25 text/htm l Care Management - [...] twice at most Randal Estrada DO [address] [place], [address], [facility] 05/04/2025 13:43:48 08/26/20 25 text/htm [...] longer watching the ipadnot reading Randal Estrada [address] [facility], [place], [address], [facility] 08/26/2025 15:18:43 09/25/20 25 text/htm l ROS as noted in the HPI here for rechk he is still fatigued and not motivated confusion is still presentand relates worse at nightnot hungry at times Randal Amaya Jackieadolfo [address] [place], [address], [facility] 09/25/2025 16:34:08 10/19/20 25 text/htm l Care Management - DiabetesReported by PatientIFor self [...] worse at nightnot hungry at times Randal Amaya DO Kathrin [address] [place], [address], [facility] 10/19/2025 16:48:35 10/26/20 25 text/htm l ROS as noted in the HPI c/o insomnia, sundowning the patient is here with his he has hx of dementia and diabetes he is showing more signs of sundowning, worsening symptoms > starts around 7 pm and progresses, improves by morninghas noticed jump in glucose levels, which can be caused by poor sleephas trouble going and staying asleepwife says he paces a lot at night and is to agitated to relax in bed discussed optionsrecommend trial of seroquel, which they are amendable to the patient already has fu with [facility] on 11/06[facility] worked out there are alt options to use if this is ineffective and/or causes side effects APRYL SPRAGUE [address] [place] [address], [place], [address], [facility] 10/26/2025 11:12:20
--- OUTSIDE RECORDS SUMMARY | 2025-11-02 23:07 | XMS_ITS | Continuity of Care Document ---
Author Organization [place] - [facility], [facility] Address [address] [facility] [place] [address] Assessment Encounter Date Assessment Date Assessment LastModified by Organization Details LastModified Time 10/19/2025 10/19/2025 [address] [place] [address] (ICING MIXER) MDM MODERATE MUST MEET 2 OUT OF [...] Lab BMP, serum or plasma 2024 025 [facility], [address] [place] [address], [place], [address], 10/19/2025 16:46:[address] referral 2024 025 [email or web address] Marques Warren MD, [address] [place] [address], [address], 10/19/2025 16:48:58 Procedures None recorded. Surgeries None recorded. Imaging None recorded. Medication Orders triamtere ne 37.5 mg-hydroc hlorothia zide 25 mg tablet 2024 025 [id number], [address] [place], [address], 10/19/2025 16:39:21 Patient TargetsNo targets recorded. Patient [...] contr ast No observ ation record ed. [address], [address], 10/05/2025 08:55:03 Result Notes None recorded. Problems Name Problem SNOMED Code Status Onset Date Resolution Date Notes Provider Name and Address Organization Details Recorded Time Type 2 diabetes mellitus 71467165 Active 2017 Randal Estrada, DO [address] [place], [address], [facility] 5 15:15:25 Neuropath y due to diabetes mellitus 739438103 Active 2017 Not Available [facility] 3 16:04:36 Essential hypertens ion 69523361 Active 2017 Not Available [facility] 3 16:04:36 Hyperchol esterolem ia 53333122 Active 2017 Not Available [facility] 3 16:04:35 Chronic kidney disease 624160458 Active 2017 Stage 3 Not Available [facility] 3 16:04:36 Melena 2904267 Active 2021 Not Available [facility] 3 16:04:36 Dysuria 87167824 Active 2021 Not Available [facility] 3 16:04:36 Chronic kidney disease stage 3 951011394 Active 2022 Not Available [facility] 3 16:04:36 Cholecyst itis 88304467 Active 2023 APRYL SPRAGUE [address] [place] [address], [address], [facility] 4 11:59:49 Gastritis 2528957 Active 2023 APRYL SPRAGUE [address] [place] [address], [address], [facility] 4 12:04:13 Diarrhea 39832537 Active 2023 APRYL SPRAGUE [address] [place] [address], [address], [facility] 4 13:44:52 Depressiv e disorder 80524086 Active 2023 Randal Estrada DO [address] [place] [address], [address], [facility] 4 10:36:59 Dupuytren 's contractu re of finger 721156520 Active 2023 Randal Estrada DO [address] [place] [address], [address], [facility] 4 11:05:22 Dermatoph ytosis 41528356 Active 2023 Randal Estrada DO [address] [place] [address], [address], [facility] 4 11:02:32 Osteoarth ritis of right knee joint 132623321365 100 Active 2024 Randal Estrada DO [address] [place] [address], [address], [facility] 5 10:34:03 Onychomyc osis of toenails 439327495 Active 2024 Randal Estrada DO [address] [place] [address], [address], [facility] 5 12:27:18 Disorient ated 87996331 Active 2024 Randal Estrada DO [address] [place] [address], , [facility] 5 15:16:40 Confusion al state 209739789 Active 2024 Randal Estrada DO [address] [place] [address], , [facility] 5 16:31:31 Keshav hematuria 285047643 Active 2024 Randal Estrada DO [address] [place] [address], [address], [facility] 5 13:36:11 Uncompens ated short term memory deficit 63809663 Active 2024 Randal Estrada DO [address] [place] [address], , [facility] 5 16:40:52 Sundownin g 543394087 Active 2024 APRYL SPRAGUE [address] [place] [address], [address], [facility] 5 10:47:16 Dementia with behaviora l disturban ce 287912592250 3 Active 2024 APRYL SPRAGUE [address] [place] [address], [address], [facility] 5 10:47:34 Notes:Some problems listed i n Documents: #[id number], #[id number], #[id number], #[id number], #[id number], #[id number], #[id number], #[id number], #[id number] could not be added to this patient's [...] n cough Not available Not available 02/20/2018 94453 RxNorm Mayte ag [place] - [facility] 8 13:34:23 9838 loratadin e medicatio n other Not available Not available 10/14/20252019 73277 RxNorm Not Available brandon - External Data [...] Not Available Not Available Not Available Basaglgreta Chen U-100 Insulin 100 unit/mL (3 mL) [...] Not Available Not Available FreeStyle Gilberto 2 Lignite Use as directed . 10/19 completed Not [...] Available Ultra-Fine Pen Needle 31 gauge x /16 USE ONE 3 TIMES A DAY active Not Available Not Available No t Available Vitals Date Recorded Body height Body mass index (BMI) Body weight Heart rate Oxygen saturation Systolic And Diastolic Provider Name and Address Organization Details Last Updated DateTime 5 170.18 cm 28.6 kg/m2 48739.9 7 g 68 /min 99 % 138/60 mm[Hg] Pat Leonardo [facility] 5 16:16:49 Social History Question Answer Notes LastModified by Organizat ion Details LastModified Time Tobacco Smoking Status Former Smoker Not Available [facility] 09/28/2020 03:36:24 What Was The Date Of Your Most Recent Tobacco Screening? 10/26/2025 [email or web address] Information not available 10/26/2025 How Many Years Have You Smoked Tobacco? 50 [id number] Information not available 09/28/2020 Sex: Unknown Functional Status Question Answer Note LastModified by Organization D etails LastModified Time Do you or have you ever used any other forms of tobacco or nicotine? No [email or web address] Information not available 08/20/2023 Mental Status None [...] Time zoster recombinant 5 completed Not Available [facility] 08/06/2023 16:05:00 Influenza, split virus, quadrivalent, preservative 8 completed Not Available [facility] 08/06/2023 16:05:00 COVID-19, mRNA, LNP-S, PF, 30 mcg/0.3 mL dose 1 completed Not Available [facility] 08/06/2023 16:05:00 Influenza, split virus, quadrivalent, preservative 1 completed Not Available [facility] 08/06/2023 16:05:00 COVID-19, mRNA, LNP-S, PF, 30 mcg/0.3 mL dose 2 completed Not Available [facility] 08/06/2023 16:05:00 influenza, unspecified formulation 2 completed Not Available [facility] 08/06/2023 16:05:00 zoster, unspecified formulation 4 completed Randal Estrada DO [address] [place] [address], [address], [facility] 05/11/2024 08:53:32 influenza, unspecified formulation 5 completed GAIL ag [facility] 08/28/2025 13:20:35 Influenza, split virus, quadrivalent, preservative 9 completed Not Available [facility] 08/06/2023 16:05:00 Influenza, split virus, quadrivalent, preservative 0 completed Not Available [facility] 08/06/2023 16:05:00 COVID-19, mRNA, LNP-S, PF, 30 mcg/0.3 mL dose 1 completed Not Available [facility] 08/06/2023 16:05:00 COVID-19, mRNA, LNP-S, PF, 30 mcg/0.3 mL dose 1 completed Not Available [facility] 08/06/2023 16:05:00 Past Encounters Encounter ID Performer Location Encounter Start Date Encounter Closed Date Diagnosis/Indication Diagnosis SNOMED-CT Code Diagnosis ICD10 Code Diagnosis IMO Codes Diagnosis Note [id number] Randal Estrada DO [facility] [address] [facility],[place] [address] 09/25/2025 15:56:22 09/28/2025 08:47:40 Depression screening 794686925 Z13.31 stable Essential hypertension 77579304 I10 BP is stable on the metoprolol cont current meds Type 2 damaris betes mellitus 07543562 E11.22 A1C is 7.1 off jardiance Continue to work on diet and will keep walking daily through endocrinol ogyno major issues except he is followed by endocrinst khanh larios, walks with but not as much due to the weather Confusional state 610943 003 R41.0 04358 stopping the jardiance did not help bp are low normal and will have him wean off beta allen to see if some of the confusion gets better rechk in a couple weeks [id number] Randal Estrada, [facility] [address] [facility],[place] [address] 10/19/2025 16:08:58 10/19/2025 16:48:58 Depression screening 647805891 Z13.31 stable Essential hypertension 81770932 I10 will try dyazide cont to stay off the metoprolol cont current meds Hypercholesterolemia 136 91324 E78.00 will be checking in a few months but we feels he is doing good Type 2 damaris betes mellitus 62175157 E11.22 A1C is 7.1 off jardiance Continue to work on diet and will keep walking daily through endocrinol ogyno major issues except he is followed by endocrinst khanh larios, walks with but not as much due to the weather Uncompensa elaina short term memory deficit 94791487 R41.3 3991814 Health Concerns Section Related Observation LastModified by Organization Detai ls LastModified Time None Recorded Concern Status LastModified by Organization Details LastModified Time None Recorded Payers Encounter Date Sequence Insurance Name Policy Number Policy Adams Covered Member ID Adams Member ID Guarantor Name 10/19/2025 1 MEDICARE B-[place]: [employer] Max Rodriguez [id number] Max Rodriguez 10/19/2025 2 [employer] - MAIL [employer] BENEFIT PLAN (PPO) [id number] Max Rodriguez [id number] Max Rodriguez Notes Date Note Type [...] at nightnot hungry at times Randal Estrada, DO [address] [facility], [place], [address], [facility] 10/19/2025 16:48:35
--- OUTSIDE RECORDS SUMMARY | 2025-11-02 23:08 | XMS_ITS | Encounter Summary ---
Author Organization [facility] Address [address] [facility] [address] [place] [address] Phone Care Team Providers Care Linseed Oil Boiler Name Role Phone Randal Pinon Primary Care Provider [phone] JackieRandal mata DO Primary Care Provider [phone] Encounter Details Date Type Department Care Team (Late st Contact Info) Description 02/02/2024 Procedure Pass [facility], Ct Scan - [address] [address] Social History Tobacco Use Types Packs/Day Years [...] Description 12/03/2025 10:00 AM EST Office Visit [facility] [address] [place] [address] Enedelia Duncan, SOURCING MANAGER 22 [facility], [address] [place] [address] 03/23/2026 11:00 AM EDT Nutrition [facility] [address] [address] Candace Meyers, DANGELON 22 [facility], [address] [place] [address] documented as of this encounter Visit Diagnoses Not on filedocumented in this encounter Care Teams Linseed Oil Boiler Relationship Specialty Start Date End Date Randal Pinon DO PCP - General Internal Medicine 07/24/22 08/04/25 Randal Pinon DO [address] [place] [address] PCP - General Internal Medicine 08/05/25 documented as of this encounter Additional Source Comments The information contained in this document represents components of the legal health record. It is not the complete legal health record.[facility]
--- OUTSIDE RECORDS SUMMARY | 2025-11-02 23:08 | XMS_ITS | Encounter Summary ---
Author Organization [facility] Address [address] [facility] [address] [place] [address] Phone Care Team Providers Care Shelf Stocker Name Role Phone Randal Pinon DO Primary Care Provider [phone] JackieRandal mata DO Primary Care Provider [phone] Encounter Details Date Type Department Care Team (Late st Contact Info) Description 06/06/2024 Procedure Pass [facility] Admitting Dept Virtual Department [address] [place] [address] Social History Tobacco Use Types Packs/Day Years [...] Description 12/03/2025 10:00 AM EST Office Visit [facility] [address] [address] Enedelia Duncan, PODIATRIC SURGEON [address] [place] [address] 03/23/2026 11:00 AM EDT Nutrition [address] [address] Candace Meyers, LDN [address] [place] [address] documented as of this encounter Visit Diagnoses Not on filedocumented in this encounter Care Teams Shelf Stocker Relationship Specialty Start Date End Date Randal Pinon DO PCP - General Internal Medicine 07/24/22 08/04/25 Randal Pinon DO [address] [place] [address] PCP - General Internal Medicine 08/05/25 documented as of this encounter Additional Source Comments The information contained in this document represents components of the legal health record. It is not the complete legal health record.[facility]
--- OUTSIDE RECORDS SUMMARY | 2025-11-02 23:08 | XMS_ITS | Continuity of Care Document ---
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 Patient TargetsNo targets recorded. Patient InstructionsNo instructions recorded. Reason for Referral None Reported. Results Created Date Observation Date Name Description Value Unit Range Abnormal Flag Note LastModifiedBy Organization Detail LastModifiedTime 09/29/2009/27/2025 MRI, brain , w/o contr ast No observ ation record ed. [email or web address] [address], [address], 10/05/2025 08:55:03 Result Notes None recorded. Problems Name Problem SNOMED Code Status Onset Date Resolution Date Notes Provider Name and Address Organization Details Recorded Time Type 2 diabetes mellitus 31506731 Active 2017 Randal Estrada, DO [address] [place] [address], [address], [facility] 5 15:15:25 Neuropath y due to diabetes mellitus 224650401 Active 2017 Not Available [facility] 3 16:04:36 Essential hypertens ion 18962613 Active 2017 Not Available [facility] 3 16:04:36 Hyperchol esterolem ia 18502989 Active 2017 Not Available [facility] 3 16:04:35 Chronic kidney disease 484460791 Active 2017 Stage 3 Not Available [facility] 3 16:04:36 Melena 5374459 Active 2021 Not Available [facility] 3 16:04:36 Dysuria 93165587 Active 2021 Not Available [facility] 3 16:04:36 Chronic kidney disease stage 3 389094774 Active 2022 Not Available [facility] 3 16:04:36 Cholecyst itis 41578353 Active 2023 APRYL SPRAGUE [address] [place], [address], [facility] 4 11:59:49 Gastritis 6271568 Active 2023 APRYL SPRAGUE [address] [place], [address], [facility] 4 12:04:13 Diarrhea 49870144 Active 2023 APRYL SPRAGUE [address] [place] [address], [address], [facility] 4 13:44:52 Depressiv e disorder 10052759 Active 2023 Randal VelázquezMele Estrada, DO [address] [place] [address], [address], [facility] 4 10:36:59 Dupuytren 's contractu re of finger 667138292 Active 2023 Randal Estrada, DO [address] [place] [address], [address], [facility] 4 11:05:22 Dermatoph ytosis 73960566 Active 2023 Randal Estrada DO [address] [place] [address], [address], [facility] 4 11:02:32 Osteoarth ritis of right knee joint 660962220525 100 Active 2024 Randal Estrada DO [address] [place] [address], [address], [facility] 5 10:34:03 Onychomyc osis of toenails 000572604 Active 2024 Randal Estrada DO [address] [place] [address], [address], [facility] 5 12:27:18 Disorient ated 03865993 Active 2024 Randal Estrada, DO [address] [place] [address], [address], [facility] 5 15:16:40 Confusion al state 450779742 Active 2024 Randal Estrada DO [address] [place] [address], [address], [facility] 5 16:31:31 Keshav hematuria 572187804 Active 2024 Randal Estrada DO [address] [place] [address], [address], [facility] 5 13:36:11 Uncompens ated short term memory deficit 66745012 Active 2024 Randal Estrada DO [address] [place] [address], [address], [facility] 5 16:40:52 Suraj saravia 382434788 Active 2024 APRYL SPRAGUE [address] [place] [address], [address], [facility] 5 10:47:16 Dementia with behaviora l disturban ce 197215815117 3 Active 2024 APRYL SPRAGUE [address] [place] [address], [address], [facility] 5 10:47:34 Notes:Some problems listed i n Documents: #[id number], #[id number], #[id number], #[id number], #[id number], #309242, #[id number], #[id number], #[id number] could not be added to this patient's [...] n cough Not available Not available 02/20/2018 21028 [facility] 8 13:34:23 9838 loratadin e medicatio n other Not available Not available 10/14/20252019 35717 RxNorm Not Available brandon - External Data [...] Not Available Not Available No t Available [employer] Flash System kit active Not Available Not [...] Not Available Not Available [employer] Gilberto 2 Shalimar Use as directed . 10/19 completed Not [...] Updated DateTime 5 170.18 cm 27.4 kg/m2 83978.6 6 g 62 /min 98 % 128/84 mm[Hg] [facility] 5 14:45:30 Social History Question Answer Notes LastModified by Organizat ion Details LastModified Time Tobacco Smoking Status Former Smoker Not Available [facility] 09/28/2020 03:36:24 What Was The Date Of Your Most Recent Tobacco Screening? 10/26/2025 [email or web address] Information not available 10/26/2025 How Many Years Have You Smoked Tobacco? 50 [id number] Information not available 09/28/2020 Sex: Unknown Functional [...] Time zoster recombinant 5 completed Not Available [facility] 08/06/2023 16:05:00 Influenza, split virus, quadrivalent, preservative 8 completed Not Available [facility] 08/06/2023 16:05:00 COVID-19, mRNA, LNP-S, PF, 30 mcg/0.3 mL dose 1 completed Not Available [facility] 08/06/2023 16:05:00 Influenza, split virus, quadrivalent, preservative 1 completed Not Available [facility] 08/06/2023 16:05:00 COVID-19, mRNA, LNP-S, PF, 30 mcg/0.3 mL dose 2 completed Not Available [facility] 08/06/2023 16:05:00 influenza, unspecified formulation 2 completed Not Available [facility] 08/06/2023 16:05:00 zoster, unspecified formulation 4 completed Randal Estrada, DO [address] [place], [address], [facility] 05/11/2024 08:53:32 influenza, unspecified formulation 5 completed GAIL ag [facility] 08/28/2025 13:20:35 Influenza, split virus, quadrivalent, preservative 9 completed Not Available [facility] 08/06/2023 16:05:00 Influenza, split virus, quadrivalent, preservative 0 completed Not Available [facility] 08/06/2023 16:05:00 COVID-19, mRNA, LNP-S, PF, 30 mcg/0.3 mL dose 1 completed Not Available [facility] 08/06/2023 16:05:00 COVID-19, mRNA, LNP-S, PF, 30 mcg/0.3 mL dose 1 completed Not Available [facility] 08/06/2023 16:05:00 Past Encounters Encounter ID Performer Location Encounter Start Date Encounter Closed Date Diagnosis/Indication Diagnosis SNOMED-CT Code Diagnosis ICD10 Code Diagnosis IMO Codes Diagnosis Note [id number] Randal Estrada [facility] [address] [facility],[place] [address] 08/26/2025 14:33:32 08/26/2025 16:37:28 Depression screening 913149795 Z13.31 stable Essential hypertension 75763923 I10 BP is stable on the metoprolol cont current meds Type 2 damaris betes mellitus 26056298 E11.22 A1C is 7.1 was 8.7 last visit a1c now is pending Continue to work on diet and will keep walking daily through endocrinol ogyno major issues except he is followed by endocrinst aying active, walks with but not as much due to the weather Disorientated 45160636 R 41.0 295649 noted to be having signif difficulty Health Concerns Section Related Observation LastModified by Organization Detai ls LastModified Time None Recorded Concern Status LastModified by Organization Details LastModified Time None Recorded Payers Encounter Date Sequence Insurance Name Policy Number Policy Adams Covered Member ID Adams Member ID Guarantor Name 08/26/2025 1 [place]ICARE B-[place]: [employer] Max Rodriguez [id number] Max Rodriguez 08/26/2025 2 [employer] - MAIL [employer]LERS BENEFIT PLAN (PPO) [id number] Max Rodriguez [id number] 1 Max Rodriguez Notes Date Note Type [...] longer watching the ipadnot reading Randal Estrada, [address] [facility], [place], [address], [facility] 08/26/2025 15:18:43
--- OUTSIDE RECORDS SUMMARY | 2025-11-02 23:08 | XMS_ITS | Encounter Summary ---
Author Organization [facility] Address [address] [place] [address] Phone Care Team Providers Care Game Moderator Name Role Phone Randal Pinon DO Primary Care Provider [phone] Randal Pinon DO Primary Care Provider [phone] Encounter Details Date Type Department Care Team (Late st Contact Info) Description 02/25/2024 Transcribe Orders Virtual Department [address] [place] [address] Leigh Devine PA [address] [place] [address] [email or web address] Upper abdominal pain (Primary Dx); Biliary [...] Description 12/03/2025 10:00 AM EST Office Visit [facility] [address] [place] [address] [place] [address] Enedelia Duncan, FASHION SHOW DIRECTOR [address] [facility], [address] [place] [address] 03/23/2026 11:00 AM EDT Nutrition [facility] [address] [place] [address] Candace Meyers LDN [address] [place] [address] documented as of this encounter Results * [...] communicated on 03/04/2024 5:45 AM, Message ID [id number]. Narrative 03/04/2024 5:45 AM EDT US ABDOMEN [...] clinician's provided indication for this examination in [facility]:Outside Radiology Order; upper abdomen pain TECHNIQUE: US [...] was communicated on 03/04/2024 5:45 AM,Message ID [id number]. Leigh PINK IMG US ABDOMEN Final Re sult documented in this encounter Visit Diagnoses Diagnosis Upper abdominal pain- Primary Biliary calculus of other site without obstruction Upper abdominal pain Biliary calculus of other site without obstruction documented in this encounter Care Teams Game Moderator Relationship Specialty Start Date End Date Randal Pinon DO PCP - General Internal Medicine 07/24/22 08/04/25 Randal Pinon DO [address] [place] [address] [email or web address] PCP - General Internal Medicine 08/05/25 documented as of this encounter Additional Source Comments The information contained in this document represents components of the legal health record. It is not the complete legal health record.[facility]
--- OUTSIDE RECORDS SUMMARY | 2025-11-02 23:10 | XMS_ITS | Continuity of Care Document ---
Author Organization [facility], [facility] Address [address] [facility] [place] [address] [place] [address] Assessment No assessment recorded. Plan of Treatment Reminders Order Date Submit Date Provider Last Modified By Organization Details Last Modified Time Details Appointments FOLLOW UP 15 2024 10:15A M DR ESTRADA Not available Not available Not available Lab None recorded. Referral None recorded. Procedures None recorded. Surgeries None recorded. Imaging None recorded. Medication Orders quetiapin e 25 mg tablet 2024 025 [facility] #[id number], [address] [place], [address], 10/26/2025 10:52:28 Patient TargetsNo targets recorded. Patient InstructionsNo instructions recorded. Reason for Referral None Reported. Results Created Date Observation Date Name Description Value Unit Range Abnormal Flag Note LastModifiedBy Organization Detail LastModifiedTime 09/29/2009/27/2025 MRI, brain , w/o contr ast No observ ation record ed. [email or web address] [address], [address], 10/05/2025 08:55:03 Result Notes None recorded. Problems Name Problem SNOMED Code Status Onset Date Resolution Date Notes Provider Name and Address Organization Details Recorded Time Type 2 diabetes mellitus 77328400 Active 2017 Randal Estrada, DO [address] [facility], [place], [address], [place] [facility] 5 15:15:25 Neuropath y due to diabetes mellitus 626823669 Active 2017 Not Available [facility] 3 16:04:36 Essential hypertens ion 01312218 Active 2017 Not Available [facility] 3 16:04:36 Hyperchol esterolem ia 10084838 Active 2017 Not Available [facility] 3 16:04:35 Chronic kidney disease 278218753 Active 2017 Stage 3 Not Available [facility] 3 16:04:36 Melena 7022067 Active 2021 Not Available [facility] 3 16:04:36 Dysuria 85456052 Active 2021 Not Available [facility] 3 16:04:36 Chronic kidney disease stage 3 122885590 Active 2022 Not Available [facility] 3 16:04:36 Cholecyst itis 77664957 Active 2023 APRYL SPRAGUE [address] [place] [address], [address], [facility] 4 11:59:49 Gastritis 5173035 Active 2023 APRYL SPRAGUE [address] [place] [address], [address], [facility] 4 12:04:13 Diarrhea 41663966 Active 2023 APRYL SPRAGUE [address] [place] [address], [address], [facility] 4 13:44:52 Depressiv e disorder 71641946 Active 2023 Randal Estrada DO [address] [place] [address], [address], [facility] 4 10:36:59 Dupuytren 's contractu re of finger 641155410 Active 2023 Randal Estrada DO [address] [place] [address], [address], [facility] 4 11:05:22 Dermatoph ytosis 10442187 Active 2023 Randal Estrada DO [address] [place] [address] [place], [address], [facility] 4 11:02:32 Osteoarth ritis of right knee joint 177786452427 100 Active 2024 Randal Estrada, DO [address] [place] [address], [address], [facility] 5 10:34:03 Onychomyc osis of toenails 781504992 Active 2024 Randal Estrada, DO [address] [place] [address], [address], [facility] 5 12:27:18 Disorient ated 10735093 Active 2024 Randal Estrada [address], [address], [facility] 5 15:16:40 Confusion al state 918174486 Active 2024 Randal Estrada DO [address] [place] [address], [address], [facility] 5 16:31:31 Keshav hematuria 145068982 Active 2024 Randal Estrada [address], [address], [facility] 5 13:36:11 Uncompens ated short term memory deficit 00822368 Active 2024 Randal Estrada DO [address] [place] [address], [address], [facility] 5 16:40:52 Sundownin g 469386086 Active 2024 APRYL SPRAGUE [address] [place] [address], [address], [facility] 5 10:47:16 Dementia with behaviora l disturban ce 849530581636 3 Active 2024 APRYL SPRAGUE [address] [place] [address], [address], [facility] 5 10:47:34 Notes:Some problems listed i n Documents: #[id number], #[id number], #[id number], #[id number], #[id number], #646714, #306694, #[id number], #[id number] could not be added to this patient's [...] n cough Not available Not available 02/20/2018 80194 [facility] 8 13:34:23 9838 loratadin e medicatio n other Not available Not available 10/14/20252019 13377 RxNorm Not Available brandon - External Data [...] completed Not Available Not Available Not Available [employer] 2 [place]borne Use as directed . 10/19 completed Not Available Not Available Not Available Fluzone High-Dose Quad (PF) 240 mcg/0.7 mL IM syringe PHARMACY ADMINIST ALEJA 03/09 completed Not Available Not Available Not [...] Updated DateTime 10/26/2025 170.18 cm 28.5 kg/m2 73818.81 g 130/68 mm[Hg] [facility] 10/26/2025 10:38:21 Social History Question Answer Notes LastModified by Organizat ion Details LastModified Time Tobacco Smoking Status Former Smoker Not Available [facility] 09/28/2020 03:36:24 What Was The Date Of Your Most Recent Tobacco Screening? 10/26/2025 [email or web address] Information not available 10/26/2025 How Many Years Have You Smoked Tobacco? 50 [id number] Information not available 09/28/2020 Sex: Unknown Functional Status Question Answer Note LastModified by Organization D etails LastModified Time Do you or have you ever used any other forms of tobacco or nicotine? No [email or web address] Information not available 08/20/2023 Mental Status None [...] Time zoster recombinant 5 completed Not Available [facility] 08/06/2023 16:05:00 Influenza, split virus, quadrivalent, preservative 8 completed Not Available [facility] 08/06/2023 16:05:00 COVID-19, mRNA, LNP-S, PF, 30 mcg/0.3 mL dose 1 completed Not Available [facility] 08/06/2023 16:05:00 Influenza, split virus, quadrivalent, preservative 1 completed Not Available [facility] 08/06/2023 16:05:00 COVID-19, mRNA, LNP-S, PF, 30 mcg/0.3 mL dose 2 completed Not Available [facility] 08/06/2023 16:05:00 influenza, unspecified formulation 2 completed Not Available [facility] 08/06/2023 16:05:00 zoster, unspecified formulation 4 completed Randal Estrada, DO [address] [place] [address], [place], [address], [facility] 05/11/2024 08:53:32 influenza, unspecified formulation 5 completed GAIL ag, [facility] 08/28/2025 13:20:35 Influenza, split virus, quadrivalent, preservative 9 completed Not Available [facility] 08/06/2023 16:05:00 Influenza, split virus, quadrivalent, preservative 0 completed Not Available [facility] 08/06/2023 16:05:00 COVID-19, mRNA, LNP-S, PF, 30 mcg/0.3 mL dose 1 completed Not Available [facility] 08/06/2023 16:05:00 COVID-19, mRNA, LNP-S, PF, 30 mcg/0.3 mL dose 1 completed Not Available [facility] 08/06/2023 16:05:00 Past Encounters Encounter ID Performer Location Encounter Start Date Encounter Closed Date Diagnosis/Indication Diagnosis SNOMED-CT Code Diagnosis ICD10 Code Diagnosis IMO Codes Diagnosis Note [id number] Randal Estrada [facility] [address] [facility], [place] [address] 10/19/2025 16:08:58 10/19/2025 16:48:58 Depression screening 250153955 Z13.31 stable Essential hypertension 33385281 I10 will try dyazide cont to stay off the metoprolol cont current meds Hypercholesterolemia 136 70021 E78.00 will be checking in a few months but we feels he is doing good Type 2 damaris betes mellitus 01942271 E11.22 A1C is 7.1 off jardiance Continue to work on diet and will keep walking daily through endocrinol ogyno major issues except he is followed by endocrinst aying active, walks with but not as much due to the weather Uncompensa elaina short term memory deficit 56725558 R41.3 9968069 [id number] Randal Amaya Kathrin, [facility] [address] [facility] [address] [address] 10/26/2025 10:33:27 10/28/2025 09:39:58 Sundowning 456532906 F05 9716902 worsening symptomsre commended seroquel Dementia w ith behavioral disturbance 9263451415 103 F03.B18 0776813746 will set up with seroquel Type 2 damaris betes mellitus 08376930 E11.22 elevated; could be related to lack of sleep Health Concerns Section Related Observation LastModified by Organization Detai ls LastModified Time None Recorded Concern Status LastModified by Organization Details LastModified Time None Recorded Payers Encounter Date Sequence Insurance Name Policy Number Policy Adams Covered Member ID Adams Member ID Guarantor Name 10/26/2025 1 [place]ICARE B-[place]: [employer] Max Rodriguez [id number] Max Rodriguez 10/26/2025 2 [employer] - MAIL [employer] BENEFIT PLAN (PPO) [id number] Max Rodriguez [id number] 1 Max Jennifer Notes Date Note Type Note Provider Name a nd Address Organization Details Recorded Time 5 text/html ROS as noted in the HPI c/o [...] to the patient already has fu with TIFFANY on 11[facility]06[facility] there are alt options to use if this is ineffective and/or causes side effects APRYL SPRAGUE [address] [place] [address], [place], [address], [facility] 10/26/2025 11:12:20
== END 2025-11-02 14:13 | disposition home or self-care (01) ==
LOC: HO.MANLDS 14:12
PROVIDERS: Visit Provider Internal Medicine
DX: I10 Essential (primary) hypertension (principal)
CPT/HCPCS: 36415; 80048